=== PATIENT | female | born 1940 | race Caucasian/White ===

== ENCOUNTER → 2016-03-11 | Outpatient (CLI) | payer MEDICARE, BC | END | disposition home or self-care (01) | LOC: LABWHC1 14:48 | PROVIDERS: ATTEND Family Medicine | DX: E03.9 Hypothyroidism, unspecified (principal) | CPT/HCPCS: 36415; 84439; 84443 ==

== ENCOUNTER 2016-04-26 16:27 | Emergency (ER) | payer MEDICARE, BC ==
[2016-04-26] MEDS ORDERED: SODIUM CHLORIDE 0.9% 500 ML IV STA (17:34)
[2016-04-26 18:10] LABS: Basophils % (A) 1 %; CH 30.8; CHCM 33.8; Eosinophils % (A) 1 %; HCT 43.9 % (34.0-46.0); HDW 2.41; HGB 14.7 gm/dL (11.4-16.0); Luc # (Auto) 0.13; Luc % (Auto) 2; Lymphocytes % (A) 17 %; MCH 30.8 pg (25.0-35.0); MCHC 33.6 g/dL (31.0-37.0); MCV 91.6 fL (80.0-100.0); Mean Platelet Volume 7.4; Monocytes # (A) 0.4 k/uL (0-1.0); Monocytes % (A) 8 %; Neutrophils # (A) 4.1 k/uL (1.3-7.7); Neutrophils % (A) 72 %; RBC 4.79 m/uL (3.80-5.40); RDW 13.5 % (11.5-15.5); WBC 5.7 k/uL (3.8-10.6); WBC (Perox) 5.77
[2016-04-26 18:23] LABS: INR 2.2 (<1.1); Prothrombin Time 21.4 sec (9.0-12.0)
[2016-04-26 18:27] LABS: Calcium 9.8 mg/dL (8.4-10.2); Potassium 4.3 mmol/L (3.5-5.1)
--- NOTE | 2016-04-26 19:03 | CT ---
EXAMINATION TYPE: CT abdomen pelvis wo con DATE OF EXAM: 04/26/2016 6:46 PM COMPARISON: 02/20/2016 HISTORY: 76-year-old female Patient complains of vaginal bleeding x3 days. Patient is post full hyst erectomy [address]. [address] DLP: 635.3 mGycm. Automated exposure control for dose reduction was used. TECHNIQUE: Contiguous axial scanning of the abdomen and pelvis without IV contrast. Coronal and sagit dalia reconstructions performed. FINDINGS: Heart is upper limits of normal in size without pericardial effusion. Coronary vessel calcifications are present and are remarkable for coronary artery disease. Strandy atelectasis at the left base and mild dependent atelectasis on both sides. There is a small hiatal hernia. Noncontrast appearance of the liver, adrenal glands, kidneys, spleen, and pancreas within normal limi ts. There is a small fatty umbilical hernia. No mesenteric or retroperitoneal lymphadenopathy seen. Moderate atherosclerotic calcifications throughout the abdominal aorta without aneurysm. No dilated small bowel or free air. There is moderate stool within the ascending colon without lindsay lonic inflammatory change. There is sigmoid diverticulosis without clear evidence for acute diverticu litis. Limitations in assessment of the distal sigmoid due to streak and beam hardening artifact from the patient's right hip total arthroplasty. Bladder is partially urine distended. Interval hysterectomy. There is mild perihepatic ascites, trace perisplenic ascites, and mild pelvic free fluid. Additional fluid attenuating lobulated lesion at the level of the left inguinal region measures 5.2 x 3.3 cm, enlarged from 2.1 cm on 02/20/2016. Some encysted fluid within a inguinal hernia is suspecte d. Bones: Right hip total arthroplasty. Degenerative changes at the left hip. There is a degenerative de xtroconvex scoliosis. No osseous destructive process. IMPRESSION: 1. Status post hysterectomy with mild abdominopelvic ascites of uncertain etiology. Clinically los elate. 2. There is a 5.2 cm low-density lesion in the left inguinal region suspected to represent some liza tional fluid trapped within an inguinal hernia rather than abnormal lymphadenopathy. Correlate with p hysical exam findings and ultrasound. If this does represent fluid, aspiration with fluid analysis ca n be considered. 3. Sigmoid diverticulosis without clear evidence for acute diverticulitis.
--- NOTE | 2016-04-26 19:41 | ED ---
General Adult HPI - General Chief complaint: Vaginal Bleeding Stated complaint: Vaginal Bleeding-Post Op Time Seen by Provider: 04/26/16 17:12 Source: patient Mode of arrival: ambulatory Limitations: no limitations - History of Present Illness Initial comments: 76-year-old female presented for evaluation of vaginal bleeding that has been intermittently present since March 17 when she underwent a hysterectomy secondary to endometrial cancer. She states that over the last 3 days she has had worsening bleeding with intermittent clots that range from the size of a dime to quarter. 5 days after the surgery she was restarted on her Coumadin which she takes for atrial fibrillation but states that the bleeding did not become significantly worse until just a few days ago. She denies any abdominal pain all she does admit to a sizable swollen mass to her left lower groin. There is no associated lightheadedness/dizziness, nausea vomiting, shortness of breath, chest pain, syncope. She has an appointment with her surgeon Dr. Marie this coming . - Related Data Home Medications Medication Instructions Recorded Confirmed Aspirin 81 mg PO DAILY 01/18/16 04/26/16 Hydrochlorothiazide 12.5 mg PO DAILY 01/18/16 04/26/16 Metoprolol Tartrate [Lopressor] 50 mg PO QAM 01/18/16 04/26/16 Warfarin [Coumadin] 5 mg PO HS 01/18/16 04/26/16 Levothyroxine Sodium [Synthroid] 100 mcg PO DAILY 04/26/16 04/26/16 Metoprolol Tartrate [Lopressor] 25 mg PO HS 04/26/16 04/26/16 Allergies Allergy/AdvReac Type Severity Reaction Status Date / Time lisinopril Allergy Rash/Hives Verified 04/26/16 17:03 losartan Allergy Rash/Hives Verified 04/26/16 17:03 Review of Systems ROS Statement: Those systems with pertinent positive or pertinent negative responses have been documented in the HPI. ROS Other: All systems not noted in ROS Statement are negative. Constitutional: Denies: fever, chills Eyes: Denies: eye pain, eye discharge ENT: Denies: ear pain, throat pain Respiratory: Denies: cough, dyspnea Cardiovascular: Denies: chest pain, palpitations Endocrine: Denies: fatigue, polyuria Gastrointestinal: Denies: abdominal pain, nausea, vomiting Genitourinary: Reports: as per HPI. Denies: urgency, dysuria, frequency, hematuria Musculoskeletal: Denies: back pain, myalgia Skin: Denies: rash, lesions Neurological: Denies: headache, weakness Psychiatric: Denies: anxiety, depression Past Medical History Past Medical History: Atrial Fibrillation, Hypertension Additional Past Medical History / Comment(s): endometrial cancer. History of Any Multi-Drug Resistant Organisms: None Reported Additional Past Surgical History / Comment(s): hysterectomy. . hip surgery Past Psychological History: No Psychological Hx Reported Smoking Status: Current every day smoker Past Alcohol Use History: Occasional Past Drug Use History: None Reported General Exam Limitations: no limitations General appearance: alert, in no apparent distress Head exam: Present: atraumatic, normocephalic Eye exam: Present: normal appearance, EOMI ENT exam: Present: normal exam, normal oropharynx Neck exam: Present: normal inspection. Absent: tenderness Respiratory exam: Present: normal lung sounds bilaterally. Absent: respiratory distress, wheezes, rales Cardiovascular Exam: Present: regular rate, normal rhythm. Absent: bradycardia , tachycardia, irregular rhythm GI/Abdominal exam: Present: soft, hernia (Left lower groin). Absent: distended , tenderness Rectal exam: Present: deferred External exam: Present: normal external exam. Absent: erythema, lesions Speculum exam: Present: vaginal bleeding (No active bleeding from the cervical os. Small blood clots noted in the vaginal vault.) Extremities exam: Present: normal inspection, full ROM Back exam: Present: normal inspection, full ROM Neurological exam: Present: alert, oriented X3, normal gait Psychiatric exam: Present: normal affect, normal mood Skin exam: Present: warm, dry, intact Course Vital Signs 04/26/16 04/26/16 16:35 19:40 Temperature 97.8 F 97.6 F Pulse Rate 84 88 Respiratory 18 20 Rate Blood Pressure 140/83 138/82 O2 Sat by Pulse 100 98 Oximetry Medical Decision Making - Medical Decision Making 76-year-old female with a recent history of hysterectomy on 2016 due to endometrial cancer presented for evaluation of vaginal bleeding. She states that following the surgery she was having intermittent vaginal bleeding over the last 3 days she has had worsening bleeding, going through 2-3 pads a day. There've been blood clots as large as quarters during this time as well. She takes Coumadin for atrial fibrillation and was restarted on this medication 5 days post surgery. She denies any other symptoms including abdominal pain, lightheadedness/dizziness, shortness of breath, chest pain, syncope. Pelvic exam performed which revealed small clots in the vaginal vault without active bleeding from the cervical os. Physical exam was also significant for a left lower abdomen/groin mass. This mass was not reducible while the patient was standing but did self reduce when she sat or lay down. It was not tender to palpation and there were no bowel sounds auscultated. Labs revealed a therapeutic INR for age her fibrillation and a mild increase in her BUNs/creatinine but not significant for acute kidney injury. Otherwise there were no significant abnormalities on labs. CT abdomen and pelvis without contrast: Status post hysterectomy with mild abdominal pelvic ascites of uncertain etiology. There is a 5.2 cm low density lesion in the left inguinal region suspected represent some additional fluid trapped within an inguinal hernia rather than abdominal lymphadenopathy. Sigmoid diverticulosis without clear evidence for acute diverticulitis. Patient was informed of all these results and offered an abdominal ultrasound to evaluate the left lower inguinal hernia. She stated that at this time she would not like to have the ultrasound that she was not in any pain. She was given discharge instructions to return to this ED if she should develop any pain at that site or inability to pass bowel movements. She is further advised to return to the ED if her other symptoms should worsen or persist including but not limited to: Worsening vaginal bleeding, lightheadedness/dizziness, shortness of breath, chest pain, CP, foul-smelling discharge, fever. The patient acknowledged an understanding of this information and agreed with this plan of care. She further from that she would call her surgeon on Thursday to confirm her appointment for this . - Lab Data Result diagrams: 04/26/16 17:55 04/26/16 17:55 Lab Results 04/26/16 04/26/16 04/26/16 Range/Units 17:55 17:55 17:55 WBC 5.7 (3.8-10.6) k/uL RBC 4.79 (3.80-5.40) m/uL Hgb 14.7 (11.4-16.0) gm/dL Hct 43.9 (34.0-46.0) % MCV 91.6 (80.0-100.0) fL MCH 30.8 (25.0-35.0) pg MCHC 33.6 (31.0-37.0) g/dL RDW 13.5 (11.5-15.5) % Plt Count 224 (150-450) k/uL Neutrophils % 72 % Lymphocytes % 17 % Monocytes % 8 % Eosinophils % 1 % Basophils % 1 % Neutrophils # 4.1 (1.3-7.7) k/uL Lymphocytes # 1.0 (1.0-4.8) k/uL Monocytes # 0.4 (0-1.0) k/uL Eosinophils # 0.0 (0-0.7) k/uL Basophils # 0.0 (0-0.2) k/uL PT 21.4 H (9.0-12.0) sec INR 2.2 (<1.1) APTT 30.0 (22.0-30.0) sec Sodium 138 (137-145) mmol/L Potassium 4.3 (3.5-5.1) mmol/L Chloride 100 (98-107) mmol/L Carbon Dioxide 28 (22-30) mmol/L Anion Gap 10 mmol/L BUN 18 H (7-17) mg/dL Creatinine 1.14 H (0.52-1.04) mg/dL Est GFR (MDRD) Af Amer 56 (>60 ml/min/1.73 sqM) Est GFR (MDRD) Non-Af 46 (>60 ml/min/1.73 sqM) Glucose 122 H (74-99) mg/dL Calcium 9.8 (8.4-10.2) mg/dL - Radiology Data CT abdomen and pelvis without contrast: Status post hysterectomy with mild abdominal pelvic ascites of uncertain etiology. There is a 5.2 cm low density lesion in the left inguinal region suspected represent some additional fluid trapped within an inguinal hernia rather than abdominal lymphadenopathy. Sigmoid diverticulosis without clear evidence for acute diverticulitis. Disposition Clinical Impression: Abnormal vaginal bleeding Disposition: HOME SELF-CARE Condition: Stable Additional Instructions: Please call your COMPUTER SOFTWARE ENGINEER surgeon on Thursday to confirm your appointment on and also to schedule an ultrasound if she should wish to do so. You should also return to this emergency department for any worsening of your symptoms including but not limited to: Intractable nausea and vomiting, development of abdominal pain especially in the area of the hernia, fever or chills, worsening vaginal bleeding, lightheadedness/dizziness, shortness of breath, chest pain, loss of consciousness. Referrals: Lucio Jenkins DO [Primary Care Provider] - 1-2 days Time of Disposition: 19:39
[2016-04-26 20:02] VITALS: BP 138/82; PULSE 88; RESP 20; TEMP 97.6
== END 2016-04-26 19:40 | disposition home or self-care (01) ==
LOC: EC 16:27
DX: N99.820 Postprocedural hemorrhage of a genitourinary system organ or structure following a genitourinary system procedure (principal); K40.90 Unilateral inguinal hernia, without obstruction or gangrene, not specified as recurrent; K57.30 Diverticulosis of large intestine without perforation or abscess without bleeding; I10 Essential (primary) hypertension; I48.91 Unspecified atrial fibrillation; F17.200 Nicotine dependence, unspecified, uncomplicated; Z79.01 Long term (current) use of anticoagulants; Z79.52 Long term (current) use of systemic steroids; Z79.82 Long term (current) use of aspirin; Z79.899 Other long term (current) drug therapy; Z88.8 Allergy status to other drugs, medicaments and biological substances; Z85.42 Personal history of malignant neoplasm of other parts of uterus; Z90.710 Acquired absence of both cervix and uterus; Z98.890 Other specified postprocedural states; Y83.8 Other surgical procedures as the cause of abnormal reaction of the patient, or of later complication, without mention of misadventure at the time of the procedure
CPT/HCPCS: 36415; 74176; 80048; 85025; 85610; 85730; 99284

== ENCOUNTER → 2016-04-28 | Outpatient (CLI) | payer MEDICARE, BC | LOC: LABWHC1 15:48 | PROVIDERS: ATTEND Family Medicine | DX: E03.9 Hypothyroidism, unspecified (principal) | CPT/HCPCS: 36415; 84439; 84443; 84481 ==

== ENCOUNTER → 2016-06-04 | Outpatient (CLI) | payer MEDICARE, BC ==
--- NOTE | 2016-06-04 15:26 | CT ---
EXAMINATION TYPE: CT abdomen pelvis w con DATE OF EXAM: 06/04/2016 3:18 PM COMPARISON: NONE INDICATION: Patient complains of possible incisional hernia in LLQ post hysterectomy. DLP: 871.6 mGycm, Automated exposure control for dose reduction was used. CONTRAST: 80 mL of Visipaque 320. Study performed with Oral Contrast TECHNIQUE: Axial images were obtained from above the diaphragm to the pubic rami in the axial plane a t 5 mm thick sections. Reconstructed images are reviewed on the computer in the coronal plane. FINDINGS: Limited CT sections are obtained the lung bases. The lung bases are clear. CT ABDOMEN: Liver: Normal Spleen: Normal Pancreas: Normal Adrenal glands: The adrenal glands are normal. Gallbladder: Surgically absent. Kidneys: No masses are evident. No hydronephrosis is present. No cysts are present. Delayed images were obtained through the kidneys. Cortical renal cyst on the lateral mid right kidney is identified on the delayed images. Aorta: Vascular calcification is within the aorta. Inferior vena cava: Normal. CT PELVIS: Loops of bowel within the abdomen and pelvis are normal. Sigmoid diverticulosis without acute div erticulitis is present within the mid to distal sigmoid colon. Appendix: Normal as visualized. Urinary bladder: Normal. Genitourinary structures: Uterus and ovaries are not identified. Osseous structures: No suspicious lytic or sclerotic lesions. Within the left inguinal region is fluid type signal area measuring 6 Hounsfield units. This measures 5.0 x 4.1 cm in size. Previous abdominal ascites has resolved. IMPRESSIONS: 1. Stable fluid collection within the left inguinal region. 2. Sigmoid diverticulosis without acute diverticulitis.
== END | disposition home or self-care (01) ==
LOC: RADCTMAIN 13:09
PROVIDERS: ATTEND Surgery
DX: K57.30 Diverticulosis of large intestine without perforation or abscess without bleeding (principal)
CPT/HCPCS: 82565; 84520; 74177; 36415; Q9967

== ENCOUNTER → 2016-06-30 | Outpatient (CLI) | payer MEDICARE, BC ==
[2016-06-30 15:30] LABS: Creatine Kinase 242 U/L (30-135)
[2016-06-30 16:23] LABS: Vitamin B12 >1000 pg/mL
[2016-06-30 19:54] LABS: Hemoglobin A1C 6.3 % (4.2-6.1)
[2016-06-30 20:00] LABS: ANA w/Reflex to Titer NEGATIVE (NEGATIVE)
[2016-06-30 20:32] LABS: Treponemal Ab Non-Reactive (Non-Reactive)
[2016-07-01 03:45] LABS: Lyme Antibodies Total(IgG/IgM) 0.03 (<0.90)
== END | disposition home or self-care (01) ==
LOC: LABWHC1 14:50
PROVIDERS: ATTEND Psychiatry & Neurology Neurology
DX: G62.9 Polyneuropathy, unspecified (principal)
CPT/HCPCS: 36415; 82550; 82607; 82747; 83036; 84165; 84439; 84443; 85652; 86038; 86618; 86780

== ENCOUNTER → 2016-08-02 | Outpatient (CLI) | payer MEDICARE, BC ==
[2016-08-02 12:20] LABS: CH 30.4; HCT 46.3 % (34.0-46.0); HDW 2.31; HGB 15.3 gm/dL (11.4-16.0); MCH 30.5 pg (25.0-35.0); MCHC 33.1 g/dL (31.0-37.0); MCV 92.4 fL (80.0-100.0); Mean Platelet Volume 6.8; RBC 5.01 m/uL (3.80-5.40); RDW 13.7 % (11.5-15.5); WBC 6.1 k/uL (3.8-10.6)
[2016-08-02 12:28] LABS: Calcium 9.9 mg/dL (8.4-10.2); Potassium 4.3 mmol/L (3.5-5.1)
[2016-08-02 12:33] LABS: Hemoglobin A1C 6.5 % (4.2-6.1)
== END | disposition home or self-care (01) ==
LOC: LABWHC1 11:45
PROVIDERS: ATTEND Family Medicine
DX: E03.9 Hypothyroidism, unspecified (principal); E78.5 Hyperlipidemia, unspecified; I10 Essential (primary) hypertension; R73.09 Other abnormal glucose
CPT/HCPCS: 36415; 80048; 80061; 83036; 84439; 84443; 84450; 84460; 85027

== ENCOUNTER → 2016-09-15 | Outpatient (CLI) | payer MEDICARE, BC ==
[2016-09-15 14:48] LABS: Calcium 9.9 mg/dL (8.4-10.2); Potassium 4.7 mmol/L (3.5-5.1)
== END | disposition home or self-care (01) ==
LOC: LABWHC1 13:57
PROVIDERS: ATTEND Family Medicine
DX: N19 Unspecified kidney failure (principal); E03.9 Hypothyroidism, unspecified
CPT/HCPCS: 36415; 80048; 84439; 84443; 84481

== ENCOUNTER → 2016-10-24 | Outpatient (CLI) | payer MEDICARE, BC ==
[2016-10-24 14:15] LABS: Appearance,Urine Clear (Clear); Bilirubin,Urine Negative (Negative); Glucose,Urine (UA) Negative (Negative); Ketones,Urine Negative (Negative); Leukocyte Esterase,Urine Small (Negative); Mucus,Urine Rare /hpf; Nitrite,Urine Negative (Negative); PH, Urine 7.5 (5.0-8.0); Particle Count 2002; Protein,Urine Trace (Negative); RBC,Urine 27 /hpf (0-5); Squamous Epithelial Cell,Urine 1 /hpf (0-4); UA Billing (MACRO vs. MICRO) MICRO; Urobilinogen,Urine <2.0 mg/dL (<2.0); WBC,Urine 4 /hpf (0-5)
[2016-10-24 14:18] LABS: Basophils % (A) 1 %; CH 31.6; CHCM 33.4; Eosinophils % (A) 1 %; HDW 2.12; HGB 16.1 gm/dL (11.4-16.0); Luc # (Auto) 0.11; Luc % (Auto) 2; Lymphocytes # (A) 0.9 k/uL (1.0-4.8); Lymphocytes % (A) 20 %; MCH 31.3 pg (25.0-35.0); MCHC 32.9 g/dL (31.0-37.0); MCV 94.9 fL (80.0-100.0); Mean Platelet Volume 7.4; Monocytes # (A) 0.4 k/uL (0-1.0); Monocytes % (A) 9 %; Neutrophils # (A) 3.1 k/uL (1.3-7.7); Neutrophils % (A) 67 %; RBC 5.16 m/uL (3.80-5.40); RDW 14.5 % (11.5-15.5); WBC 4.6 k/uL (3.8-10.6); WBC (Perox) 4.54
[2016-10-24 14:45] LABS: Calcium 9.5 mg/dL (8.4-10.2); Magnesium 1.9 mg/dL (1.6-2.3); Phosphorous 3.9 mg/dL (2.5-4.5); Potassium 4.4 mmol/L (3.5-5.1); Uric Acid 6.3 mg/dL (3.7-7.4)
[2016-10-24 14:54] LABS: % Iron Saturation 18.8 % (20-50)
== END | disposition home or self-care (01) ==
LOC: LABWHC1 13:39
PROVIDERS: ATTEND Nurse Practitioner Family
DX: D64.9 Anemia, unspecified (principal); N18.3 Chronic kidney disease, stage 3 (moderate); E21.3 Hyperparathyroidism, unspecified; N39.0 Urinary tract infection, site not specified; E55.9 Vitamin D deficiency, unspecified; M10.9 Gout, unspecified
CPT/HCPCS: 36415; 80048; 81001; 82040; 82306; 82728; 83540; 83550; 83735; 83970; 84100; 84550; 85025

== ENCOUNTER → 2016-11-24 | Outpatient (CLI) | payer MEDICARE, BC ==
[2016-11-24 17:09] LABS: Basophils % (A) 1 %; CHCM 32.4; Eosinophils # (A) 0.1 k/uL (0-0.7); Eosinophils % (A) 1 %; HCT 49.1 % (34.0-46.0); HGB 15.6 gm/dL (11.4-16.0); Luc % (Auto) 2; Lymphocytes # (A) 1.1 k/uL (1.0-4.8); Lymphocytes % (A) 19 %; MCH 30.5 pg (25.0-35.0); MCHC 31.8 g/dL (31.0-37.0); MCV 96.2 fL (80.0-100.0); Mean Platelet Volume 6.7; Monocytes # (A) 0.4 k/uL (0-1.0); Monocytes % (A) 7 %; Neutrophils % (A) 70 %; RBC 5.11 m/uL (3.80-5.40); RDW 13.9 % (11.5-15.5); WBC 5.7 k/uL (3.8-10.6); WBC (Perox) 5.61
[2016-11-24 17:10] LABS: Appearance,Urine Clear (Clear); Bacteria,Urine Occasional /hpf; Bilirubin,Urine Negative (Negative); Glucose,Urine (UA) Negative (Negative); Ketones,Urine Negative (Negative); Leukocyte Esterase,Urine Moderate (Negative); Luc # (Auto) 0.13; Nitrite,Urine Negative (Negative); PH, Urine 6.5 (5.0-8.0); Particle Count 639; Protein,Urine Negative (Negative); RBC,Urine 8 /hpf (0-5); Specific Gravity,Urine 1.006 (1.001-1.035); Squamous Epithelial Cell,Urine 1 /hpf (0-4); UA Billing (MACRO vs. MICRO) MICRO; Urobilinogen,Urine <2.0 mg/dL (<2.0); WBC,Urine 13 /hpf (0-5)
[2016-11-24 17:14] LABS: Calcium 9.9 mg/dL (8.4-10.2); Magnesium 1.9 mg/dL (1.6-2.3); Phosphorous 4.1 mg/dL (2.5-4.5); Uric Acid 6.3 mg/dL (3.7-7.4)
[2016-11-24 17:15] LABS: Potassium 4.4 mmol/L (3.5-5.1)
[2016-11-25 02:02] LABS: ANA w/Reflex to Titer NEGATIVE (NEGATIVE)
[2016-11-25 03:42] LABS: Iron 85 ug/dL (50-170); Iron Saturation 22.02 (12.00-45.00); Total Iron Binding Capacity 386 ug/dL (228-460)
[2016-11-25 11:15] LABS: Free Kappa Lt Chain Qnt, Serum 1.28 mg/dL (0.33-1.94)
[2016-11-25 14:15] LABS: C-ANCA <1:20 Titer (<1:20); P-ANCA <1:20 Titer (<1:20)
[2016-11-25 14:25] LABS: Mis test requested (Non-blood) Urn Prot Electrophor
[2016-11-26 04:13] LABS: Complement Total (CH50) 104 U/mL (42 - 95)
== END | disposition home or self-care (01) ==
LOC: LABWHC1 16:17
PROVIDERS: ATTEND Nurse Practitioner Family
DX: N18.3 Chronic kidney disease, stage 3 (moderate) (principal); E21.3 Hyperparathyroidism, unspecified; N39.0 Urinary tract infection, site not specified; E55.9 Vitamin D deficiency, unspecified; D64.9 Anemia, unspecified; R80.9 Proteinuria, unspecified; M10.9 Gout, unspecified
CPT/HCPCS: 36415; 80048; 81001; 81050; 82040; 82306; 82570; 82728; 83516; 83540; 83550; 83735; 83883; 83970; 84100; 84156; 84166; 84550; 85025; 86038; 86160; 86162; 86225; 86255; 86334

== ENCOUNTER → 2017-06-19 | Outpatient (CLI) | payer MEDICARE, BC ==
--- NOTE | 2017-06-19 15:34 | CT ---
EXAMINATION TYPE: CT brain wo/w con DATE OF EXAM: 06/19/2017 COMPARISON: NONE HISTORY: Visual disturbance CT DLP: 2108.4mGycm CONTRAST: CT scan of the head is performed without and with IV Contrast, patient injected with 80 mL of Isovue 300. Unenhanced followed by contrast enhanced CT of the brain is submitted for evaluation. The ventricles are midline. Age-related atrophic and chronic small vessel ischemic change noted. There is no eviden ce for intracranial hemorrhage or extra-axial collection. No mass effects are identified. Visualize d bony calvarium is intact. Contrast is administered and no enhancing lesions are detected. No path ologic enhancement is identified. If symptoms persist consider MRI. IMPRESSION: No enhancing lesion or acute intracranial process seen.
== END ==
LOC: RADCTMAIN 13:28
PROVIDERS: ATTEND Ophthalmology
DX: D49.6 Neoplasm of unspecified behavior of brain (principal)
CPT/HCPCS: 82565; 84520; 70470; 36415; Q9967

== ENCOUNTER → 2017-11-13 | Outpatient (CLI) | payer MEDICARE, BC ==
[2017-11-13 13:33] LABS: HCT 47.7 % (34.0-46.0); HGB 15.6 gm/dL (11.4-16.0); MCH 30.5 pg (25.0-35.0); MCHC 32.8 g/dL (31.0-37.0); Mean Platelet Volume 6.9; Platelet Count 239 k/uL (150-450); RBC 5.13 m/uL (3.80-5.40); RDW 13.7 % (11.5-15.5); WBC 4.8 k/uL (3.8-10.6)
[2017-11-13 14:04] LABS: Albumin 3.8 g/dL (3.5-5.0); Calcium 9.6 mg/dL (8.4-10.2); Potassium 4.4 mmol/L (3.5-5.1); Total Bilirubin 0.7 mg/dL (0.2-1.3); Total Protein 6.7 g/dL (6.3-8.2)
== END | disposition home or self-care (01) ==
LOC: LABPAT 13:09
PROVIDERS: ATTEND Internal Medicine Clinical Cardiac Electrophysiology
DX: Z01.812 Encounter for preprocedural laboratory examination (principal); I48.1 Persistent atrial fibrillation; I45.10 Unspecified right bundle-branch block
CPT/HCPCS: 36415; 80053; 84443; 85027

== ENCOUNTER → 2017-12-09 | Outpatient (CLI) | payer MEDICARE, BC ==
[2017-12-09 13:37] LABS: HCT 47.5 % (34.0-46.0); HGB 15.1 gm/dL (11.4-16.0); MCH 29.8 pg (25.0-35.0); MCHC 31.8 g/dL (31.0-37.0); MCV 93.6 fL (80.0-100.0); Mean Platelet Volume 7.3; Platelet Count 227 k/uL (150-450); RBC 5.08 m/uL (3.80-5.40); RDW 13.9 % (11.5-15.5); WBC 4.5 k/uL (3.8-10.6)
[2017-12-09 14:02] LABS: Potassium 4.3 mmol/L (3.5-5.1)
== END | disposition home or self-care (01) ==
LOC: LABPAT 11:56
PROVIDERS: ATTEND Internal Medicine Clinical Cardiac Electrophysiology
DX: Z01.812 Encounter for preprocedural laboratory examination (principal); I48.2 Chronic atrial fibrillation; I45.10 Unspecified right bundle-branch block
CPT/HCPCS: 36415; 80051; 82565; 82947; 84520; 85027

== ENCOUNTER 2017-12-26 14:35 | Emergency (ER) | payer MEDICARE, BC ==
[2017-12-26 14:42] VITALS: RESP 18
--- NOTE | 2017-12-26 15:18 | ED ---
General Adult HPI - General Chief complaint: Fall Stated complaint: Fell Source: patient, RN notes reviewed, old records reviewed Mode of arrival: ambulatory Limitations: no limitations - History of Present Illness Initial comments: 77-year-old female patient anticoagulated on xaralto presents to ED after sustaining fall on Saturday 12/23. Patient states that she was exercising on foot glider when she abruptly fell backwards onto her backside. Patient denies head/neck trauma, loss of consciousness. Patient has been ambulatory since fall. Patient experiencing mild pain in left hemipelvis and coccyx region. Patient presented to the ED due to large ecchymoses on the right hemipelvis and associated blood blister which ruptured last night. Patient denies other complaints. Systemic: Pt denies fatigue, myalgia, fever/chills, rash. Pt denies weakness, night sweats, weight loss. Neuro: Pt denies headache, visual disturbances, syncope or pre-syncope. HEENT: Pt denies ocular discharge or irritation, otalgia, rhinorrhea, pharyngitis or notable lymphadenopathy. Cardiopulmonary: Pt denies chest pain, SOB, heart palpitations, dyspnea on exertion. Abdominal/GI: Pt denies abdominal pain, n/v/d. : Pt denies dysuria, burning w/ urination, frequency/urgency. Denies new onset urinary or bowel incontinence. MSK: Pt denies myalgia, loss of strength or function in extremities. - Related Data Home Medications Medication Instructions Recorded Confirmed Hydrochlorothiazide 12.5 mg PO DAILY 01/18/16 12/22/17 Metoprolol Tartrate [Lopressor] 50 mg PO QAM 01/18/16 12/22/17 Levothyroxine Sodium [Synthroid] 175 mcg PO DAILY 04/26/16 12/22/17 Metoprolol Tartrate [Lopressor] 25 mg PO HS 04/26/16 12/22/17 Rivaroxaban [Xarelto] 20 mg PO DAILY 12/22/17 12/22/17 Allergies Allergy/AdvReac Type Severity Reaction Status Date / Time lisinopril Allergy Rash/Hives Verified 12/22/17 12:01 losartan Allergy Rash/Hives Verified 12/22/17 12:01 Review of Systems ROS Statement: Those systems with pertinent positive or pertinent negative responses have been documented in the HPI. ROS Other: All systems not noted in ROS Statement are negative. Past Medical History Past Medical History: Atrial Fibrillation, Cancer, Diabetes Mellitus, Hypertension Additional Past Medical History / Comment(s): endometrial cancer 2017; states has diabetes but doesn't test BS or take meds History of Any Multi-Drug Resistant Organisms: None Reported Past Surgical History: Section, Hysterectomy, Joint Replacement Additional Past Surgical History / Comment(s): R Hip replaced Past Anesthesia/Blood Transfusion Reactions: No Reported Reaction Past Psychological History: No Psychological Hx Reported Smoking Status: Former smoker Past Alcohol Use History: None Reported Past Drug Use History: None Reported - Past Family History Mother Family Medical History: No Reported History General Exam - General Exam Comments Initial Comments: Constitutional: NAD, AOX3, Pt has pleasant affect. HEENT: NC/AT, trachea midline, neck supple, no lymphadenopathy. Posterior pharynx non erythematous, without exudates. External ears appear normal, without discharge. Mucous membranes moist. Eyes PERRLA, EOM intact. There is no scleral icterus. No pallor noted. Cardiopulmonary: RRR, no murmurs, rubs or gallops, no JVD noted. Lungs CTAB in anterior and posterior sanz. No peripheral edema. Abdominal exam: Abdomen soft and non-distended. Abdomen non-tender to palpation in all 4 quadrants. Bowel sounds active in LLQ. No hepatosplenomegaly. Neuro: CN II-XII grossly intact. MSK: Patient is ambulating without difficulty. Upper extremities nontender without deformity or notable ecchymoses. Cervical spine nontender. Large ecchymoses noted on the posterior right hemipelvis. Scattered blisters noticed on the posterior right hemipelvis. Posterior tibialis +2 bilaterally. Limitations: no limitations Course Vital Signs 12/26/17 14:38 Temperature 97.9 F Pulse Rate 85 Respiratory 18 Rate Blood Pressure 130/81 O2 Sat by Pulse 100 Oximetry Medical Decision Making - Medical Decision Making 77-year-old patient presented in ED due to fall sustained on 12/23 underwent evaluation for musculoskeletal injury. Patient has been ambulatory since fall. Investigations included plain films of the sacrum/coccyx, lumbar spine, hip/ pelvis. These films did not display any acute fracture or pathology. Patient to follow up with PCP in 1 to 2 days. Patient is scheduled for cardioversion procedure on 12/29. Patient to continue with anticoagulation as previously advised by support technician. Vital signs stable. No concern additional injury due to the length of time since fall, benign physical exam, and absence of signs/ symptoms. Patient to return if paresthesias develop, new pain develops or any other new symptoms. Disposition Clinical Impression: Fall Disposition: HOME SELF-CARE Instructions: Fall Prevention for Older Adults (ED) Is patient prescribed a controlled substance at d/c from ED?: No Referrals: Lucio Jenkins DO [Primary Care Provider] - 1-2 days
--- NOTE | 2017-12-26 16:02 | XR ---
EXAMINATION TYPE: XR sacrum coccyx DATE OF EXAM: 12/26/2017 COMPARISON: NONE HISTORY: Fall. Pain. TECHNIQUE: 3 views FINDINGS: Segments have normal alignment. I see no fracture. Sacroiliac joints appear normal. There a re spondylotic changes in the lower lumbar spine. IMPRESSION: Lumbar spondylotic changes. No fracture.
--- NOTE | 2017-12-26 16:03 | XR ---
EXAMINATION TYPE: XR lumbar spine 2 or 3V DATE OF EXAM: 12/26/2017 COMPARISON: NONE HISTORY: Back pain TECHNIQUE: 3 views FINDINGS: There is lumbar dextroscoliosis. There is degenerative disc space narrowing throughout the lumbar spine with spur formation. There is no acute fracture. There is slight loss of height of the l umbar vertebra less than 10%. Sacroiliac joints are intact. IMPRESSION: Moderate multilevel spondylosis. No acute fracture seen.
--- NOTE | 2017-12-26 16:05 | XR ---
EXAMINATION TYPE: XR Hip Bilateral and AP pelvis DATE OF EXAM: 12/26/2017 COMPARISON: NONE HISTORY: Fall. Pain. TECHNIQUE: 5 views FINDINGS: The pelvic ring is intact. There is right hip prosthesis. Components appear in anatomic pos ition. There is some spurring and calcification around the greater trochanter of both femurs. There i s mild spurring on the left femoral head. IMPRESSION: No acute abnormality of the pelvis and both hips
[2017-12-26 16:21] VITALS: BP 110/80; PULSE 70; TEMP 98.7
== END 2017-12-26 16:24 | disposition home or self-care (01) ==
LOC: EC 14:35
DX: S30.0XXA Contusion of lower back and pelvis, initial encounter (principal); I48.91 Unspecified atrial fibrillation; I10 Essential (primary) hypertension; Z85.42 Personal history of malignant neoplasm of other parts of uterus; Z96.641 Presence of right artificial hip joint; Z87.891 Personal history of nicotine dependence; Z79.01 Long term (current) use of anticoagulants; Z79.899 Other long term (current) drug therapy; Z88.8 Allergy status to other drugs, medicaments and biological substances; W01.0XXA Fall on same level from slipping, tripping and stumbling without subsequent striking against object, initial encounter; Y93.89 Activity, other specified
CPT/HCPCS: 72100; 72220; 73521; 99284

== ENCOUNTER 2017-12-29 06:18 | Day surgery (SDC) | payer MEDICARE, BC ==
[2017-12-22 12:07] VITALS: BMI 29.2
[~2017-12-29 06:18] MED LIST: SODIUM CHLORIDE 0.9% 1,000 ML IV SCH
[2017-12-29 07:01] VITALS: RESP 16; TEMP 98.2
[2017-12-29] MEDS ORDERED: fentaNYL (PF) 50 MCG/ML 2 ML AMP ONE (07:19)
[2017-12-29] MEDS ORDERED: PROPOFOL 10 MG/ML 20 ML VIAL IV ONE (07:19)
[2017-12-29] MEDS ORDERED: IV FLUID CONTINUATION 1,000 ML IV ONE (07:24)
[2017-12-29 07:37] LABS: Glucose,Whole Blood 132 mg/dL (75-99)
--- NOTE | 2017-12-29 08:04 | P.PCN ---
Preoperative Diagnosis: Diagnosis Symptomatic persistent atrial fibrillation with RVR during the daytime, on xarelto 20 mg by mouth daily Procedure Electrical cardioversion with 360 J shock was performed successfully, to sinus rhythm PACs noted post cardioversion Result Successful cardioversion for atrial fibrillation. If patient does not maintains sinus rhythm then consideration should be given to a pace & ablate strategy Anesthesia: MAC
[2017-12-29 09:26] VITALS: BP 138/72; PULSE 56
== END 2017-12-29 09:26 | disposition home or self-care (01) ==
LOC: CATHEP 06:18
PROVIDERS: ATTEND Internal Medicine Clinical Cardiac Electrophysiology
DX: I48.1 Persistent atrial fibrillation (principal); I10 Essential (primary) hypertension; I45.10 Unspecified right bundle-branch block; I47.1 Supraventricular tachycardia; E78.5 Hyperlipidemia, unspecified; G47.33 Obstructive sleep apnea (adult) (pediatric); I49.3 Ventricular premature depolarization; E11.42 Type 2 diabetes mellitus with diabetic polyneuropathy; E07.9 Disorder of thyroid, unspecified; F17.200 Nicotine dependence, unspecified, uncomplicated; Z79.01 Long term (current) use of anticoagulants; Z79.890 Hormone replacement therapy; Z79.899 Other long term (current) drug therapy; Z82.49 Family history of ischemic heart disease and other diseases of the circulatory system; Z88.8 Allergy status to other drugs, medicaments and biological substances
CPT/HCPCS: 92960; J3010; J2704

== ENCOUNTER 2018-02-17 12:58 | Emergency (ER) | payer MEDICARE, BC ==
[2018-02-17 13:11] VITALS: BP 164/88; PULSE 54; RESP 18; TEMP 97.8
--- NOTE | 2018-02-17 13:47 | ED ---
Female Urogenital HPI - General Chief complaint: Urogenital Stated complaint: UTI Time Seen by Provider: 02/17/18 13:25 Source: patient, RN notes reviewed, old records reviewed Mode of arrival: ambulatory Limitations: no limitations - History of Present Illness Initial comments: This is a 77-year-old female the ER for evaluation. Patient presents today for evaluation regards to abdominal pain burning with urination believe that she does have urinary tract infection. No fevers no nausea vomiting no diarrhea no other complaints MD Complaint: dysuria, pelvic pain -: days(s) Location: suprapubic Radiation: suprapubic Severity scale (1-10): 6 Consistency: constant Improves with: none Worsens with: none, urination Patient : No Associated Symptoms: denies other symptoms - Related Data Home Medications Medication Instructions Recorded Confirmed Hydrochlorothiazide 12.5 mg PO DAILY 01/18/16 02/17/18 Metoprolol Tartrate [Lopressor] 25 mg PO BID 04/26/16 02/17/18 Amiodarone [Cordarone] 100 mg PO DAILY 02/17/18 02/17/18 Levothyroxine Sodium [Synthroid] 150 mcg PO DAILY 02/17/18 02/17/18 Warfarin [Coumadin] 5 mg PO W/SUPPER 02/17/18 02/17/18 Previous Rx's Medication Instructions Recorded Nitrofurantoin Monohyd/M-Cryst 100 mg PO Q12HR #14 cap 02/17/18 [Macrobid] Allergies Allergy/AdvReac Type Severity Reaction Status Date / Time lisinopril Allergy Rash/Hives Verified 02/17/18 13:46 losartan Allergy Rash/Hives Verified 02/17/18 13:46 Review of Systems ROS Statement: Those systems with pertinent positive or pertinent negative responses have been documented in the HPI. ROS Other: All systems not noted in ROS Statement are negative. Past Medical History Past Medical History: Atrial Fibrillation, Cancer, Diabetes Mellitus, Hypertension Additional Past Medical History / Comment(s): endometrial cancer 2017; states has diabetes but doesn't test BS or take meds History of Any Multi-Drug Resistant Organisms: None Reported Past Surgical History: Section, Hysterectomy, Joint Replacement Additional Past Surgical History / Comment(s): R Hip replaced Past Anesthesia/Blood Transfusion Reactions: No Reported Reaction Past Psychological History: No Psychological Hx Reported Smoking Status: Former smoker Past Alcohol Use History: None Reported Past Drug Use History: None Reported - Past Family History Mother Family Medical History: No Reported History General Exam Limitations: no limitations General appearance: alert, in no apparent distress Head exam: Present: atraumatic, normocephalic, normal inspection Eye exam: Present: normal appearance, PERRL, EOMI. Absent: scleral icterus, conjunctival injection, periorbital swelling ENT exam: Present: normal exam, mucous membranes moist Neck exam: Present: normal inspection. Absent: tenderness, meningismus, lymphadenopathy Respiratory exam: Present: normal lung sounds bilaterally. Absent: respiratory distress, wheezes, rales, rhonchi, stridor Cardiovascular Exam: Present: regular rate, normal rhythm, normal heart sounds. Absent: systolic murmur, diastolic murmur, rubs, gallop, clicks GI/Abdominal exam: Present: soft, normal bowel sounds. Absent: distended, tenderness, guarding, rebound, rigid Extremities exam: Present: normal inspection, full ROM, normal capillary refill. Absent: tenderness, pedal edema, joint swelling, calf tenderness Back exam: Present: normal inspection Neurological exam: Present: alert, oriented X3, CN II-XII intact Psychiatric exam: Present: normal affect, normal mood Skin exam: Present: warm, dry, intact, normal color. Absent: rash Course Vital Signs 02/17/18 02/17/18 13:07 15:40 Temperature 97.8 F Pulse Rate 54 L Respiratory 18 18 Rate Blood Pressure 164/88 O2 Sat by Pulse 99 Oximetry Medical Decision Making - Medical Decision Making 68 female the ER with burning with urination, patient with positive UTI can be discharged home - Lab Data Lab Results 02/17/18 Range/Units 13:45 Urine Color Light Yellow Urine Appearance Clear (Clear) Urine pH 6.5 (5.0-8.0) Ur Specific [place] 1.007 (1.001-1.035) Urine Protein Trace H (Negative) Urine Glucose (UA) Negative (Negative) Urine Ketones Negative (Negative) Urine Blood Large H (Negative) Urine Nitrite Negative (Negative) Urine Bilirubin Negative (Negative) Urine Urobilinogen <2.0 (<2.0) mg/dL Ur Leukocyte Esterase Large H (Negative) Urine RBC 38 H (0-5) /hpf Urine WBC 92 H (0-5) /hpf Urine Bacteria Rare H (None) /hpf Urine Yeast (Budding) Rare H (None) /hpf Disposition Clinical Impression: Urinary tract infection Disposition: HOME SELF-CARE Condition: Fair Instructions: Urinary Tract Infection in Women (DC) Prescriptions: Nitrofurantoin Monohyd/M-Cryst [Macrobid] 100 mg PO Q12HR #14 cap Is patient prescribed a controlled substance at d/c from ED?: No Referrals: Lucio Jenkins DO [Primary Care Provider] - 1-2 days
[2018-02-17 15:03] LABS: Appearance,Urine Clear (Clear); Bacteria,Urine Rare /hpf; Bilirubin,Urine Negative (Negative); Blood,Urine Large (Negative); Budding Yeast,Urine Rare /hpf; Color,Urine Light Yellow; Glucose,Urine (UA) Negative (Negative); Ketones,Urine Negative (Negative); Leukocyte Esterase,Urine Large (Negative); Nitrite,Urine Negative (Negative); PH, Urine 6.5 (5.0-8.0); Protein,Urine Trace (Negative); RBC,Urine 38 /hpf (0-5); Specific Gravity,Urine 1.007 (1.001-1.035); Urobilinogen,Urine <2.0 mg/dL (<2.0); WBC,Urine 92 /hpf (0-5)
[2018-02-17] MEDS ORDERED: NITROFURANTOIN MONOHYD/M-CRYST 100 MG CAP PO STA (15:06)
== END 2018-02-17 15:42 | disposition home or self-care (01) ==
LOC: EC 12:58
DX: N39.0 Urinary tract infection, site not specified (principal); I48.91 Unspecified atrial fibrillation; I10 Essential (primary) hypertension; Z85.42 Personal history of malignant neoplasm of other parts of uterus; Z87.891 Personal history of nicotine dependence; Z79.01 Long term (current) use of anticoagulants; Z79.899 Other long term (current) drug therapy; Z88.8 Allergy status to other drugs, medicaments and biological substances; Z96.641 Presence of right artificial hip joint
CPT/HCPCS: 81001; 87077; 87086; 87186; 99284

== ENCOUNTER → 2018-12-22 | Outpatient (CLI) | payer MEDICARE, BC ==
--- NOTE | 2018-12-23 09:04 | CT ---
EXAMINATION TYPE: CT abdomen pelvis wo con DATE OF EXAM: 12/22/2018 COMPARISON: 06/04/2016 INDICATION: Pelvic swelling. DLP: 894 mGycm, Automated exposure control for dose reduction was used. CONTRAST: 0 mL of Isovue 300. Study performed with Oral Contrast TECHNIQUE: Axial images were obtained from above the diaphragm to the pubic rami in the axial plane a t 5 mm thick sections. Reconstructed images are reviewed on the computer in the coronal plane. FINDINGS: Limited CT sections are obtained the lung bases. The lung bases are clear. Some coronary artery olivia cification is present. CT ABDOMEN: Liver: Couple of hepatic cysts may be in the superior right lobe liver. These however were not identi fied previously. Consider additional workup. Other etiologies including metastatic lesion should be c onsidered. Spleen: Normal Pancreas: Normal Adrenal glands: The adrenal glands are normal. Gallbladder: Normal Kidneys: No masses are evident. No hydronephrosis is present. No cysts are present. No renal stone s are evident. Aorta: Vascular calcification is within the aorta. Inferior vena cava: Normal. CT PELVIS: Loops of bowel within the abdomen and pelvis are normal. Scattered diverticuli within the sigmoid colon. No suspicious inflammatory changes to suggest acute diverticulitis is evident. Appendix: Normal as visualized. Urinary bladder: Normal. Genitourinary structures: Uterus and ovaries are not identified. Osseous structures: No suspicious lytic or sclerotic lesions. There is a right hip prosthesis causing beam hardening artifact. Within the left inguinal region there is a fluid collection measuring 3.8 x 3.4 cm. No discrete wall is evident. This measures -4 Hounsfield units. Fluid within an femoral hernia is felt to be most like ly within the differential. IMPRESSIONS: 1. Suspected fluid-filled femoral hernia left inguinal region
== END | disposition home or self-care (01) ==
LOC: RADCTMAIN 15:15
PROVIDERS: ATTEND Family Medicine
DX: R19.00 Intra-abdominal and pelvic swelling, mass and lump, unspecified site (principal)
CPT/HCPCS: 82565; 84520; 74176; 36415; Q9967

== ENCOUNTER 2019-03-24 09:39 | Day surgery (SDC) | payer MEDICARE, BC ==
[2019-03-22 11:29] VITALS: BMI 27.0
--- NOTE | 2019-03-23 18:04 | P.GSHP ---
History of Present Illness H&P Date: 03/24/19 CHIEF COMPLAINT: Ventral hernia. HISTORY OF PRESENT ILLNESS: The patient is a 79-year-old female who presents with a history of swelling along the umbilicus and left lower quadrant Findings were consistent with possible umbilical hernia and left inguinal hernia. Now she presents for further evaluation and management. PAST MEDICAL HISTORY: Please see list. PAST SURGICAL HISTORY: Please see list. MEDICATIONS: Please see list. ALLERGIES: Please see list. SOCIAL HISTORY: No illicit drug use FAMILY HISTORY: No reports of Crohn disease or ulcerative colitis. REVIEW OF ORGAN SYSTEMS: CONSTITUTIONAL: No reports of fevers or chills. GI: Denies any blood in stools or constipation. PHYSICAL EXAM: VITAL SIGNS: Stable GENERAL: Well-developed pleasant female in no acute distress. HEENT: No scleral icterus. Extraocular movements grossly intact. Moist buccal mucosa. NECK: Supple without lymphadenopathy. CHEST: Unlabored respirations. Equal bilateral excursions. CARDIOVASCULAR: Regular rate and rhythm. Distal 2+ pulses. ABDOMEN: Soft, nondistended. Umbilical hernia and left inguinal swelling. Protuberant. MUSCULOSKELETAL: No clubbing, cyanosis, or edema. ASSESSMENT: 1. Umbilical hernia 2. Left inguinal hernia PLAN: 1. Recommend proceeding with robotic ventral hernia repair with mesh including left inguinal hernia repair 2. Benefits and risks of surgical intervention was discussed including possibility of open technique. 3. DVT prophylaxis. 4. Antibiotic prophylaxis. Past Medical History Past Medical History: Atrial Fibrillation, Cancer, Hypertension, Neurologic Disorder, Thyroid Disorder Additional Past Medical History / Comment(s): endometrial cancer 2017; prediabetes, neuropathy feet History of Any Multi-Drug Resistant Organisms: None Reported Past Surgical History: Section, Hysterectomy, Joint Replacement Additional Past Surgical History / Comment(s): R Hip replaced. cardioversion Past Anesthesia/Blood Transfusion Reactions: No Reported Reaction Smoking Status: Former smoker - Past Family History Mother Family Medical History: No Reported History Medications and Allergies Home Medications Medication Instructions Recorded Confirmed Type Hydrochlorothiazide 12.5 mg PO DAILY 01/18/16 03/22/19 History Metoprolol Tartrate [Lopressor] 25 mg PO BID 04/26/16 03/22/19 History Levothyroxine Sodium [Synthroid] 150 mcg PO WE 02/17/18 03/22/19 History ALPRAZolam [Xanax] 0.25 mg PO HS PRN 03/22/19 03/22/19 History Enoxaparin [Lovenox] 80 mg SQ DAILY 03/22/19 03/22/19 History Gabapentin [Neurontin] 200 mg PO TID 03/22/19 03/22/19 History Levothyroxine Sodium 137 mcg PO SUMOTUTHFRSA 03/22/19 03/22/19 History Warfarin [Coumadin] 5 mg PO DAILY 03/22/19 03/22/19 History Allergies Allergy/AdvReac Type Severity Reaction Status Date / Time lisinopril Allergy Rash/Hives Verified 03/22/19 11:06 losartan Allergy Rash/Hives Verified 03/22/19 11:06
[~2019-03-24 09:39] MED LIST changes: +DEXAMETHASONE SOD PHOSPHATE 10 MG/ML 1 ML VIAL IV ONE; +GABAPENTIN 300 MG CAP PO STA; +HEPARIN SODIUM,PORCINE 5,000 UNIT/ML 1 ML VIAL SQ ONE; +HYDROmorphone 0.5 MG/0.5 ML SYRINGE IVP PRN; +LACTATED RINGERS 1,000 ML IV SCH; +LIDOCAINE 1% 20 ML VIAL (10MG/ML) FOR IV START INTRADERMA PRN; +MIDAZOLAM 2 MG/2 ML VIAL IV PRN; +SCOPOLAMINE 1.5MG/72HR PATCH TRANSDERM ONE; -SODIUM CHLORIDE 0.9% 1,000 ML IV SCH
[2019-03-24 10:17] LABS: Glucose,Whole Blood 116 mg/dL (75-99)
[2019-03-24] MEDS: ACETAMINOPHEN TAB 500 MG TAB PO STA ×2 (10:27→16:50)
[2019-03-24] MEDS ORDERED: LACTATED RINGERS 1,000 ML IV ONE ×2 (10:27→15:15)
[2019-03-24] MEDS: ONDANSETRON 4 MG/2 ML VIAL IVP ONE ×2 (10:27→16:12)
[2019-03-24 10:41] LABS: Basophils # (A) 0.1 k/uL (0-0.2); Basophils % (A) 3 %; Eosinophils # (A) 0.1 k/uL (0-0.7); Eosinophils % (A) 2 %; HCT 45.1 % (34.0-46.0); INR 1.1 (<1.2); Lymphocytes # (A) 0.9 k/uL (1.0-4.8); Lymphocytes % (A) 22 %; MCH 31.3 pg (25.0-35.0); MCHC 33.3 g/dL (31.0-37.0); MCV 93.8 fL (80.0-100.0); Mean Platelet Volume 7.6; Monocytes # (A) 0.4 k/uL (0-1.0); Monocytes % (A) 11 %; Neutrophils # (A) 2.3 k/uL (1.3-7.7); Neutrophils % (A) 59 %; Platelet Count 233 k/uL (150-450); Prothrombin Time 11.1 sec (9.0-12.0); WBC 3.9 k/uL (3.8-10.6)
[2019-03-24 10:49] LABS: Calcium 9.5 mg/dL (8.4-10.2); Potassium 4.4 mmol/L (3.5-5.1); Total Bilirubin 0.9 mg/dL (0.2-1.3); Total Protein 7.2 g/dL (6.3-8.2)
--- NOTE | 2019-03-24 12:21 | P.ANPRN ---
Procedure Note - Anesthesia - Nerve Block Performed Right Transversus Abdominis Single Time Out Performed: Yes (1154) Date of Procedure: 03/24/19 Procedure Start Time: 11:55 Procedure Stop Time: 11:59 Location of Patient: PreOp Indication: Acute Post-Operative Pain, Requested by Surgeon Specifically requested for management of pain by DrRaquel: Brooke Johnson Sedation Type: Sedate with meaningful contact maintained Preparation: Sterile Prep Position: Supine Catheter: None Needle Types: Pajunk Needle Gauge: 20 Ultrasound used to visualize needle placement: Yes Ultrasound used to observe medication spread: Yes Injectate: 0.5% Ropivacaine (see comment for volume) (20cc) Blood Aspirated: No Pain Paresthesia on Injection Noted: No Resistance on Injection: Normal Image Stored and Saved: Yes Events: Uneventful and Well Tolerated Left Transversus Abdominis Single Time Out Performed: Yes (1154) Date of Procedure: 03/24/19 Procedure Start Time: 12:00 Procedure Stop Time: 12:04 Location of Patient: PreOp Indication: Acute Post-Operative Pain, Requested by Surgeon Specifically requested for management of pain by DrRaquel: Brooke Johnson Sedation Type: Sedate with meaningful contact maintained Preparation: Sterile Prep Position: Supine Catheter: None Needle Types: Pajunk Needle Gauge: 20 Ultrasound used to visualize needle placement: Yes Ultrasound used to observe medication spread: Yes Injectate: 0.5% Ropivacaine (see comment for volume) (20cc) Blood Aspirated: No Pain Paresthesia on Injection Noted: No Resistance on Injection: Normal Image Stored and Saved: Yes Events: Uneventful and Well Tolerated
--- NOTE | 2019-03-24 12:24 | P.ANPRN ---
Procedure Note - Anesthesia - Nerve Block Performed Right Transversus Abdominis Single Time Out Performed: Yes (1004) Date of Procedure: 03/24/19 Procedure Start Time: 10:05 Procedure Stop Time: 10:09 Location of Patient: PreOp Indication: Acute Post-Operative Pain, Requested by Surgeon Specifically requested for management of pain by DrRaquel: Brooke Johnson Sedation Type: Sedate with meaningful contact maintained Preparation: Sterile Prep Position: Supine Catheter: None Needle Types: Pajunk Needle Gauge: 20 Ultrasound used to visualize needle placement: Yes Ultrasound used to observe medication spread: Yes Injectate: 0.5% Ropivacaine (see comment for volume) (15cc) Blood Aspirated: No Pain Paresthesia on Injection Noted: No Resistance on Injection: Normal Image Stored and Saved: Yes Events: Uneventful and Well Tolerated Left Rectus Abdominis Single Time Out Performed: Yes (1004) Date of Procedure: 03/24/19 Procedure Start Time: 10:10 Procedure Stop Time: 10:14 Location of Patient: PreOp Indication: Acute Post-Operative Pain, Requested by Surgeon Specifically requested for management of pain by DrRaquel: Brooke Johnson Sedation Type: Sedate with meaningful contact maintained Preparation: Sterile Prep Position: Supine Catheter: None Needle Types: Pajunk Needle Gauge: 20 Ultrasound used to visualize needle placement: Yes Ultrasound used to observe medication spread: Yes Injectate: 0.5% Ropivacaine (see comment for volume) (15cc) Blood Aspirated: No Pain Paresthesia on Injection Noted: No Resistance on Injection: Normal Image Stored and Saved: Yes Events: Uneventful and Well Tolerated
[2019-03-24] MEDS ORDERED: MIDAZOLAM 2 MG/2 ML VIAL ONE (13:14)
[2019-03-24] MEDS ORDERED: ROPIVACAINE 5 MG/ML 30 ML VIAL ONE (13:14)
[2019-03-24] MEDS ORDERED: LIDOCAINE 1% INJ 10MG/ML (20 ML MDV) ONE (13:14)
[2019-03-24] MEDS ORDERED: NEOSTIGMINE 1 MG/ML 10 ML VIAL ONE (13:14)
[2019-03-24] MEDS ORDERED: fentaNYL (PF) 50 MCG/ML 2 ML AMP ONE (13:14)
[2019-03-24] MEDS ORDERED: GLYCOPYRROLATE 0.2 MG/ML 2 ML VIAL ONE (13:14)
[2019-03-24] MEDS ORDERED: ESMOLOL 100 MG/10 ML VIAL ONE (13:14)
[2019-03-24] MEDS ORDERED: PROPOFOL 10 MG/ML 20 ML VIAL IV ONE (13:14)
[2019-03-24] MEDS ORDERED: ROCURONIUM BROMIDE 10 MG/ML 10 ML VIAL IV ONE (13:14)
[2019-03-24] MEDS ORDERED: BUPIVACAINE (PF) 0.25% 30 ML VIAL SQ ONE (13:41)
[2019-03-24 15:38] VITALS: TEMP 96.9
--- NOTE | 2019-03-24 15:58 | P.OP ---
Date of Procedure: 03/24/19 Description of Procedure: SURGEON: BROOKE JOHNSON MD PREOPERATIVE DIAGNOSES: 1. Initial left inguinal hernia 2. Initial incarcerated umbilical hernia 3. Atrial fibrillation 4. Hypertensive heart disease 5. Neuropathy 6. Chronic anticoagulant therapy 7. Hypothyroidism POSTOPERATIVE DIAGNOSES: 1. Initial incarcerated left femoral hernia 2. Initial incarcerated umbilical hernia, 3 cm 3. Atrial fibrillation 4. Hypertensive heart disease 5. Neuropathy 6. Chronic anticoagulant therapy 7. Hypothyroidism OPERATION: 1. Robotic-assisted da Damaso Xi laparoscopic repair of initial incarcerated femoral hernia with mesh, ventralight ST mesh 11.4 cm 2. Robotic-assisted da Damaso Xi laparoscopic repair of initial incarcerated umbilical hernia with mesh, ventralight ST mesh 11.4 cm Anesthesia: GETA, regional, local Estimated Blood Loss (ml): 10 Pathology: 1. Incarcerated umbilical hernia defect 2. Incarcerated left femoral hernia COMPLICATIONS: None. Operative Findings: 1. Incarcerated left femoral hernia 2 x 2 cm 2. Umbilical hernia defect 2 x 3 cm INDICATIONS: The patient is a 79-year-old female who presents with a personal history of multiple abdominal wall hernias. Surgical intervention with laparoscopic versus robotic and open techniques were reviewed. Placement of mesh was also reviewed. Benefits and risks were thoroughly described. Informed consent was obtained. DESCRIPTION OF PROCEDURE: The patient was brought into the operating room and laid in supine position. After general induction, the abdomen had been prepped and draped in standard sterile fashion. Ioban draping was also placed. Prior to incision, a timeout protocol was confirmed with surgical team regarding the patient's name including procedures to be performed. The robot was primed prior to the procedure. A field block using local anesthetic was placed along hernia site including the proposed port sites. Initial incision was made with an #11 blade along the left upper quadrant. A 0 degree 5 mm laparoscopic trocar entry was performed and insufflated. Three 8 mm ports were placed along the upper abdomen under direct localization after exchanging the 5-mm for an 8 mm port. Placements of the ports were 15 cm from the target anatomy and 8 cm apart. The [employer] robot was previously primed, prepped and draped then docked from the right side of the patient onto the left side of the patient. I then sat at the robot Da Damaso Xi console where working arms of the robot including Bovie cautery connected to robotic scissors, needle ambulance driver paramedic, and graspers placed by the research study assistant. The patient was placed in steep Trendelenburg position 16. At the left groin, a 2 cm incarcerated left femoral hernia was identified. The hernia sac was evaginated whereby the peritoneum was scored using Endo scissors with cautery. Once completely reduced into the abdominal cavity, the peritoneal sac of the hernia was stripped without a lipoma identified. The sac was resected and then passed off for further pathological analysis. The size of the hernia defect was 2 cm with intraoperative films obtained. Using a 2-0 V-LOC the peritoneal defect of the left inguinal hernia site was closed using a pursestring suture.. The defect was found to be completely closed with complete reduction of the left inguinal hernia was confirmed. As an onlay, an 11.[address] mesh by [employer] was cut in half and entered into the abdominal cavity via the 8 mm trocar. The mesh was tacked to the pelvis using 2-0 VLOC x 9-inch length sutures. Attention was now brought to the umbilicus. Incarcerated omental contents were found along the umbilicus. Fascial defect were found umbilical hernia defect 3 cm. The incarcerated contents were reduced as the peritoneal fat was cleaned from the abdominal wall. Next, hemostasis was checked with cautery. The hernia defects were oversewn using #1 nonabsorbable V-lock suture for each defect separately with fascial imbrication x 2. Next, ventralight ST mesh 11.4 cm was placed with the rough side towards the abdominal wall as to cover the umbilical defect. 2-0 VLOC 9 inch sutures were used to fixate the mesh. A final endoscopic imaging was obtained. All instruments and pneumoperitoneum were evacuated from the abdominal cavity. The [employer] Dam[employer] Xi robot was undocked from the patient. I re-scrubbed into the case for closure of incisions. The incisions were reapproximated using 4-0 Monocryl in an interrupted subcuti cular fashion. Liquid glue was applied to the skin after cleansing the skin with normal saline and dilute hydrogen peroxide. An abdominal binder was placed. An umbilical dressing was placed prior. At the end of the procedure, needle, sponge, and instrument count had been verified correct by surgical forceps fabricator. The patient was taken to the postanesthesia care unit in stable condition. Plan - Discharge Summary Discharge Rx Participant: Yes New Discharge Prescriptions: New Acetaminophen Tab [Tylenol Tab] 1,000 mg PO Q6H PRN #30 tablet PRN Reason: Pain No Action Hydrochlorothiazide 12.5 mg PO DAILY Metoprolol Tartrate [Lopressor] 25 mg PO BID Levothyroxine Sodium [Synthroid] 150 mcg PO WE Warfarin [Coumadin] 5 mg PO DAILY Levothyroxine Sodium 137 mcg PO SUMOTUTHFRSA Gabapentin [Neurontin] 200 mg PO TID Enoxaparin [Lovenox] 80 mg SQ DAILY ALPRAZolam [Xanax] 0.25 mg PO HS PRN PRN Reason: Insomnia Discharge Medication List Hydrochlorothiazide 12.5 mg PO DAILY 01/18/16 [History] Metoprolol Tartrate [Lopressor] 25 mg PO BID 04/26/16 [History] Levothyroxine Sodium [Synthroid] 150 mcg PO WE 02/17/18 [History] ALPRAZolam [Xanax] 0.25 mg PO HS PRN 03/22/19 [History] Enoxaparin [Lovenox] 80 mg SQ DAILY 03/22/19 [History] Gabapentin [Neurontin] 200 mg PO TID 03/22/19 [History] Levothyroxine Sodium 137 mcg PO SUMOTUTHFRSA 03/22/19 [History] Warfarin [Coumadin] 5 mg PO DAILY 03/22/19 [History] Acetaminophen Tab [Tylenol Tab] 1,000 mg PO Q6H PRN #30 tablet 03/24/19 [Rx] Follow up Appointment(s)/Referral(s): Brooke Johnson MD [STAFF PHYSICIAN] - 03/29/19 Patient Instructions/Handouts: Inguinal Hernia Repair (GEN), Umbilical Hernia Repair (GEN), Abdominal Binder (DC) Activity/Diet/Wound Care/Special Instructions: Start BLOOD THINNER Thursday03/28/19 Wear abdominal binder at all times No lifting over 4 pounds in 4 weeks until Apr 24. June shower. No bath tub soaks for two weeks until Apr 24. Diet as tolerated. No driving while on narcotics. Use Tylenol and ibuprofen scheduled for the next 24-48 hours for best pain relief. Use ice along incisions for the today to prevent swelling. Discharge Disposition: HOME SELF-CARE
[2019-03-24] MEDS ORDERED: TAMSULOSIN 0.4 MG CAP.ER.24H PO ONE (16:00)
[2019-03-24] MEDS ORDERED: ONDANSETRON 4 MG/2 ML VIAL IVP ONE (17:21)
[2019-03-24] MEDS ORDERED: METOCLOPRAMIDE 5 MG/ML 2 ML VIAL IVP ONE (17:22)
[2019-03-24 18:06] VITALS: PULSE 71; RESP 20
[2019-03-24 18:24] VITALS: BP 159/87
== END 2019-03-24 18:25 | disposition home or self-care (01) ==
LOC: OR 09:39
PROVIDERS: ATTEND Surgery Plastic and Reconstructive Surgery
DX: K40.90 Unilateral inguinal hernia, without obstruction or gangrene, not specified as recurrent (principal); K42.0 Umbilical hernia with obstruction, without gangrene; K41.30 Unilateral femoral hernia, with obstruction, without gangrene, not specified as recurrent; I48.11 Longstanding persistent atrial fibrillation; I45.10 Unspecified right bundle-branch block; I47.1 Supraventricular tachycardia; I49.3 Ventricular premature depolarization; I11.9 Hypertensive heart disease without heart failure; E11.42 Type 2 diabetes mellitus with diabetic polyneuropathy; G47.33 Obstructive sleep apnea (adult) (pediatric); E03.9 Hypothyroidism, unspecified; Z79.01 Long term (current) use of anticoagulants; Z79.899 Other long term (current) drug therapy; Z79.890 Hormone replacement therapy; Z88.8 Allergy status to other drugs, medicaments and biological substances; Z82.49 Family history of ischemic heart disease and other diseases of the circulatory system; E78.5 Hyperlipidemia, unspecified; Z85.42 Personal history of malignant neoplasm of other parts of uterus; Z90.710 Acquired absence of both cervix and uterus; Z96.641 Presence of right artificial hip joint; Z87.891 Personal history of nicotine dependence
CPT/HCPCS: 64488; 80053; 85025; 85610; 88302; 49650; 49653; C1781; J2250; J1644; J1100; J2710; J2765; J0690; J2405; J2001; J3010; J2795; J2704; J1170

== ENCOUNTER → 2019-04-12 | Outpatient (CLI) | payer MEDICARE, BC ==
--- NOTE | 2019-04-13 07:39 | US ---
EXAMINATION TYPE: US groin LT DATE OF EXAM: 04/12/2019 COMPARISON: CTs of 12/22/2018 and 06/04/2016 CLINICAL HISTORY: R19.09 Left groin swelling. Left groin palpable x 3 years. Patient states it showed up a few months after she had her hysterectomy due to endometrial cancer. TECHNIQUE/FINDINGS: Targeted grayscale and color ultrasound were performed of the left gro[facility] abnormality. Complex cystic appearing lesion visualized with numerous lacelike internal echoes that appear mobile on real-time imaging. This mass is avascular and measures 6.6 x 4.7 x 4.9. This is seen anterior to t he common femoral vein. Prior CT measurements on 12/22/2018 of 3.8 x 3.4 cm and on 06/04/2016 this julio ured 5.0 x 4.1 cm. IMPRESSION: The avascular probable seroma on the left groin as interval growth measuring up to 6.6 c m and measuring up to 3.8 cm on the most recent exam.
== END | disposition home or self-care (01) ==
LOC: RADUSWWP 15:43
PROVIDERS: ATTEND Surgery Plastic and Reconstructive Surgery
DX: R19.09 Other intra-abdominal and pelvic swelling, mass and lump (principal)

== ENCOUNTER → 2020-03-23 | Outpatient (CLI) | payer MEDICARE, BC ==
--- NOTE | 2020-03-23 14:52 | CT ---
EXAMINATION TYPE: CT abdomen pelvis wo con DATE OF EXAM: 03/23/2020 HISTORY: hernia and abdominal pain. CT DLP: 458 mGycm. Automated Exposure Control for Dose Reduction was Utilized. TECHNIQUE: CT scan of the abdomen and pelvis is performed without oral or IV contrast. COMPARISON: CT abdomen and pelvis December 22, 2018 FINDINGS: Within the limitations of a non-contrast study, the following observations are made. LUNG BASES: Motion artifact degradation. Mild left greater than right bibasilar linear scarring and/o r atelectasis. Cardiomegaly redemonstrated. LIVER/GB: Cholecystectomy clips redemonstrated. PANCREAS: No significant abnormality is seen. SPLEEN: No significant abnormality is seen. ADRENALS: No significant abnormality is seen. KIDNEYS: No significant abnormality is seen. BOWEL: The oral contrast does not reach level of the terminal ileum making evaluation of distal bowel suboptimal. No suspicious small or large bowel dilatation. Focal moderate to severe diverticulosis i n the sigmoid colon. No CT evidence for acute diverticulitis. Persistent mild/moderate fecal prominen ce in the right and transverse colon. GENITAL ORGANS: Uterus surgically absent or markedly atrophic. Scattered tiny bilateral pelvic phlebo liths redemonstrated. LYMPH NODES: No new greater than 1cm abdominal or pelvic lymph nodes are appreciated. OSSEOUS STRUCTURES: Metallic hardware from total right hip arthroplasty causes streak artifact limiti ng evaluation of pelvic structures. Dextroconvex scoliosis centered at L2 level. [id number] m ultilevel spurring in the spine. Grade 1 retrolisthesis L2 on L3 and L3 on L4. Severe disc space narr owing at L4-L5 level with endplate sclerosis and severe spurring. OTHER: Moderate to severe calcified plaque in the ectatic abdominal aorta redemonstrated. No new AAA. IMPRESSION: Prior visualized fluid in the left inguinal region not seen on today's study. No new curtis ia identified. No new or acute findings present.
== END | disposition home or self-care (01) ==
LOC: RADCTMAIN 12:30
PROVIDERS: ATTEND Surgery Plastic and Reconstructive Surgery
DX: R10.84 Generalized abdominal pain (principal)
CPT/HCPCS: 74176

== ENCOUNTER 2020-04-11 07:19 | Day surgery (SDC) | payer MEDICARE, BC ==
[2020-04-09 11:31] VITALS: BMI 28.0
[~2020-04-11 07:19] MED LIST changes: -DEXAMETHASONE SOD PHOSPHATE 10 MG/ML 1 ML VIAL IV ONE; -GABAPENTIN 300 MG CAP PO STA; -HEPARIN SODIUM,PORCINE 5,000 UNIT/ML 1 ML VIAL SQ ONE; -HYDROmorphone 0.5 MG/0.5 ML SYRINGE IVP PRN; +LIDOCAINE 1% (10MG/ML) FOR IV START INTRADERMA PRN; -LIDOCAINE 1% 20 ML VIAL (10MG/ML) FOR IV START INTRADERMA PRN; -MIDAZOLAM 2 MG/2 ML VIAL IV PRN; -SCOPOLAMINE 1.5MG/72HR PATCH TRANSDERM ONE
[2020-04-11 07:50] VITALS: TEMP 98.1
[2020-04-11 08:00] LABS: Glucose,Whole Blood 109 mg/dL (75-99)
[2020-04-11] MEDS ORDERED: METOPROLOL TARTRATE 5 MG/5 ML VIAL IVP ONE (08:02)
--- NOTE | 2020-04-11 08:02 | P.GSHP ---
History of Present Illness H&P Date: 04/11/20 CHIEF COMPLAINT: Colon screen HISTORY OF PRESENT ILLNESS: The patient is a 80-year-old female who presents for colon screen. Lower endoscopy was offered for further evaluation and management. PAST MEDICAL HISTORY: Please see list. PAST SURGICAL HISTORY: Please see list. MEDICATIONS: Please see list. ALLERGIES: Please see list. SOCIAL HISTORY: No illicit drug use FAMILY HISTORY: No reports of Crohn disease or ulcerative colitis. REVIEW OF ORGAN SYSTEMS: CONSTITUTIONAL: No reports of fevers or chills. PHYSICAL EXAM: VITAL SIGNS: Stable GENERAL: Well-developed pleasant in no acute distress. HEENT: No scleral icterus. Extraocular movements grossly intact. Moist buccal mucosa. NECK: Supple without lymphadenopathy. CHEST: Unlabored respirations. Equal bilateral excursions. CARDIOVASCULAR: Regular rate and rhythm. Distal 2+ pulses. ABDOMEN: Soft, nontender, nondistended. MUSCULOSKELETAL: No clubbing, cyanosis, or edema. ASSESSMENT: 1. Colon screen. PLAN: 1. Recommend proceeding with a lower endoscopy Past Medical History Past Medical History: Atrial Fibrillation, Cancer, Hypertension, Thyroid Disorder Additional Past Medical History / Comment(s): states has "lump in stomach" endometrial cancer 2017; neuropathy feet, states pre diabetic History of Any Multi-Drug Resistant Organisms: None Reported Past Surgical History: Section, Cholecystectomy, Hysterectomy, Joint Replacement Additional Past Surgical History / Comment(s): R Hip replaced, cardioversion, Past Anesthesia/Blood Transfusion Reactions: No Reported Reaction Smoking Status: Former smoker - Past Family History Mother Family Medical History: No Reported History Medications and Allergies Home Medications Medication Instructions Recorded Confirmed Type Hydrochlorothiazide 12.5 mg PO DAILY 01/18/16 04/09/20 History [hydroCHLOROthiazide] Metoprolol Tartrate [Lopressor] 25 mg PO BID 04/26/16 04/09/20 History ALPRAZolam [Xanax] 0.25 mg PO HS PRN 03/22/19 04/09/20 History Gabapentin [Neurontin] 200 mg PO TID 03/22/19 04/09/20 History Levothyroxine Sodium 137 mcg PO DAILY 03/22/19 04/09/20 History Warfarin [Coumadin] 5 mg PO DAILY 03/22/19 04/09/20 History Enoxaparin [Lovenox] 80 mg SQ BID 04/09/20 04/09/20 History Allergies Allergy/AdvReac Type Severity Reaction Status Date / Time lisinopril Allergy Rash/Hives Verified 04/11/20 07:44 losartan Allergy Rash/Hives Verified 04/11/20 07:44 Surgical - Exam Vital Signs Temp Pulse Resp BP Pulse Ox 98.1 F 98 16 171/90 98 04/11/20 07:49 04/11/20 07:49 04/11/20 07:49 04/11/20 07:49 04/11/20 07:49 Results - Labs Abnormal Lab Results - Last 24 Hours (Table) 04/11/20 Range/Units 07:56 POC Glucose (mg/dL) 109 H (75-99) mg/dL
[2020-04-11] MEDS ORDERED: PROPOFOL 10 MG/ML 20 ML VIAL IV ONE (08:05)
--- NOTE | 2020-04-11 08:46 | P.OP ---
Date of Procedure: 04/11/20 Description of Procedure: PREOPERATIVE DIAGNOSIS: Colonoscopy screening Chronic anticoagulant use POSTOPERATIVE DIAGNOSIS: Tubular adenoma sigmoid colon Severe sigmoid diverticulosis Chronic anticoagulant use OPERATION: Colonoscopy to the ileocecal valve, cecum Colonoscopy with hot snare polypectomy SURGEON: Brooke Johnson MD. ANESTHESIA: MAC. INDICATIONS: The patient is an 80-year-old female who presents for first colonoscopy screening. Benefits and risks were described and informed consent was obtained. DESCRIPTION OF PROCEDURE: The patient had undergone Suprep tabs. The patient had been brought into the operating room and laid in the left lateral decubitus position. After adequate intravenous sedation, the rectum was examined with 2% lidocaine jelly. No external hemorrhoids were encountered. The rectal tone was within normal limits. No lesions were palpated in the rectal vault. An Olympus colonoscope was advanced until the cecum, ileocecal valve and appendiceal orifice were clearly viewed. The prep was fair. Severe sigmoid diverticulosis was encountered with mild stricture at 20 cm from the anal verge. Colonic polyps were found and removed. No evidence of focal colitis was found. Retroflexion of the scope demonstrated grade 1 internal hemorrhoids without active bleeding or inflammation. The colon was desufflated. The patient had tolerated the procedure well. Withdrawal time was over 6 minutes. FINDINGS: Aronchick preparation quality scale 3 (1-5) Internal hemorrhoids, grade 1 No external hemorrhoids No arteriovenous malformations. Severe sigmoid diverticulosis with stricture at 20 cm from anal verge Removal of 1 polyp: - Snare polypectomy 15 cm from the anal verge, 12 mm tubulovillous adenoma polyp, removed in piecemeal No focal colitis. RECOMMENDATIONS: Given severity of tubular adenomas, recommend repeat colonoscopy 1 year, 2021. Plan - Discharge Summary Discharge Rx Participant: No New Discharge Prescriptions: Continue Hydrochlorothiazide [hydroCHLOROthiazide] 12.5 mg PO DAILY Metoprolol Tartrate [Lopressor] 25 mg PO BID Warfarin [Coumadin] 5 mg PO DAILY Levothyroxine Sodium 137 mcg PO DAILY Gabapentin [Neurontin] 200 mg PO TID ALPRAZolam [Xanax] 0.25 mg PO HS PRN PRN Reason: Insomnia Enoxaparin [Lovenox] 80 mg SQ BID Discharge Medication List Hydrochlorothiazide [hydroCHLOROthiazide] 12.5 mg PO DAILY 01/18/16 [History] Metoprolol Tartrate [Lopressor] 25 mg PO BID 04/26/16 [History] ALPRAZolam [Xanax] 0.25 mg PO HS PRN 03/22/19 [History] Gabapentin [Neurontin] 200 mg PO TID 03/22/19 [History] Levothyroxine Sodium 137 mcg PO DAILY 03/22/19 [History] Warfarin [Coumadin] 5 mg PO DAILY 03/22/19 [History] Enoxaparin [Lovenox] 80 mg SQ BID 04/09/20 [History] Follow up Appointment(s)/Referral(s): Brooke Johnson MD [STAFF PHYSICIAN] - 04/17/20 Patient Instructions/Handouts: Colorectal Polyps (DC), *Surgery [facility] - (Anesthesia) Endoscopy Discharge Instructions, Diverticulosis Diet (GEN), Diverticulosis (DC) Activity/Diet/Wound Care/Special Instructions: Repeat colonoscopy in one year, 2021 Discharge Disposition: HOME SELF-CARE
[2020-04-11 09:02] VITALS: BP 141/80; PULSE 78; RESP 18
--- NOTE | 2020-04-13 09:56 | CDI ---
Outpatient Documentation Clarification Form Date: 04/13/20 CDS/Promotions Executive Name: Billie Wagoner Phone: If any questions, call Radha Ramon Aircraft Arm[employer]ic at [phone] Patient Name: Camilla Valdes Admit Date: 04/11/20 Discharge Date: 04/11/20 ATTENTION: The [facility] Coding Staff appreciate your assistance in clarifying documentation. Please respond to the clarification below the line at the bottom and electronically sign. The [facility] Coding staff will review the response and follow-up if needed. Please note: Queries are made part of the Legal Health Record. If you have any questions, please contact the Aircraft Armament Mechanic. Dear Dr. Johnson, Please provide clarification as to the location of the polyp in the colon. In order to following proper guidelines and cover medical necessity, please specify the name of the section of colon where the polyp was found. Thank you for your kind consideration. FINDINGS: Aronchick preparation quality scale 3 (1-5) Internal hemorrhoids, grade 1 No external hemorrhoids No arteriovenous malformations. Severe sigmoid diverticulosis with stricture at 20 cm from anal verge Removal of 1 polyp: - Snare polypectomy 15 cm from the anal verge, 12 mm tubulovillous adenoma polyp, removed in piecemeal, sigmoid colon No focal colitis. KM 04/13/20 @ 13:25 MTDD
== END 2020-04-11 09:30 | disposition home or self-care (01) ==
LOC: ORWHC2ENDO 07:19
PROVIDERS: ATTEND Surgery Plastic and Reconstructive Surgery
DX: Z12.11 Encounter for screening for malignant neoplasm of colon (principal); D12.5 Benign neoplasm of sigmoid colon; K57.30 Diverticulosis of large intestine without perforation or abscess without bleeding; K64.0 First degree hemorrhoids; Q43.8 Other specified congenital malformations of intestine; I48.91 Unspecified atrial fibrillation; I10 Essential (primary) hypertension; E07.9 Disorder of thyroid, unspecified; G62.9 Polyneuropathy, unspecified; R73.03 Prediabetes; F41.9 Anxiety disorder, unspecified; F32.9 Major depressive disorder, single episode, unspecified; Z85.41 Personal history of malignant neoplasm of cervix uteri; Z98.891 History of uterine scar from previous surgery; Z90.49 Acquired absence of other specified parts of digestive tract; Z90.710 Acquired absence of both cervix and uterus; Z98.890 Other specified postprocedural states; Z96.641 Presence of right artificial hip joint; Z87.891 Personal history of nicotine dependence; Z79.01 Long term (current) use of anticoagulants; Z79.02 Long term (current) use of antithrombotics/antiplatelets; Z79.890 Hormone replacement therapy; Z79.899 Other long term (current) drug therapy; Z88.8 Allergy status to other drugs, medicaments and biological substances
CPT/HCPCS: 88305; 45385; J2704

== ENCOUNTER 2020-09-07 09:52 | Inpatient (IN) | payer MEDICARE, BC ==
[2020-09-07] MEDS ORDERED: SODIUM CHLORIDE 0.9% 500 ML 500 ML IV STA (10:16)
[2020-09-07 10:36] LABS: Basophils % (A) 0 %; Eosinophils # (A) 0.1 k/uL (0-0.7); Eosinophils % (A) 1 %; HCT 43.5 % (34.0-46.0); HGB 14.8 gm/dL (11.4-16.0); Lymphocytes # (A) 0.5 k/uL (1.0-4.8); Lymphocytes % (A) 4 %; MCH 30.6 pg (25.0-35.0); MCHC 34.1 g/dL (31.0-37.0); MCV 89.8 fL (80.0-100.0); Mean Platelet Volume 8.1; Monocytes # (A) 0.7 k/uL (0-1.0); Monocytes % (A) 6 %; Neutrophils % (A) 88 %; Platelet Count 172 k/uL (150-450); RBC 4.84 m/uL (3.80-5.40); RDW 13.4 % (11.5-15.5); WBC 12.5 k/uL (3.8-10.6)
[2020-09-07 10:50] LABS: INR 2.9 (<1.2); Partial Thromboplastin Time 33.3 sec (22.0-30.0); Prothrombin Time 27.9 sec (9.0-12.0)
[2020-09-07 10:52] LABS: Albumin 3.9 g/dL (3.5-5.0); Calcium 9.5 mg/dL (8.4-10.2); Total Bilirubin 1.8 mg/dL (0.2-1.3); Total Protein 6.7 g/dL (6.3-8.2)
[2020-09-07 10:57] LABS: Potassium 3.8 mmol/L (3.5-5.1)
--- NOTE | 2020-09-07 11:16 | ED ---
Fall HPI - General Chief Complaint: Fall Stated Complaint: Fall Time Seen by Provider: 09/07/20 09:54 Source: EMS Mode of arrival: EMS - History of Present Illness Initial Comments: Patient is an 80-year-old female with history of A. fib, hypertension, presenting to the emergency department via EMS, after she fell yesterday. Patient states she has neuropathy in her legs and her feet and often loses her balance secondary to that. She states she was walking and lost her balance and fell backwards. Her son was able to help her into a chair however patient was unable to leave that chair all day yesterday secondary to right hip discomfort. She states she did hit her head on an end table, she did not lose consciousness. She is on Coumadin. Other than the right hip pain, she denies any other injuries from this fall. She states she has a little bit of neck discomfort h owever she always has neck pain. She does not feel like it any more than normal. She denies any chest pain or shortness of breath, no abdominal pain. She denies any fevers or chills. She denies being dizzy or lightheaded. She has no further complaints. EMS did place a c-collar. Patient is tachycardia at 114, 93% on room air, afebrile, BP is 142/94. - Related Data Home Medications Medication Instructions Recorded Confirmed Metoprolol Tartrate [Lopressor] 25 mg PO BID 04/26/16 09/07/20 ALPRAZolam [Xanax] 0.25 mg PO HS PRN 03/22/19 09/07/20 Levothyroxine Sodium 137 mcg PO DAILY 03/22/19 09/07/20 Warfarin [Coumadin] 5 mg PO HS 03/22/19 09/07/20 Acetaminophen Tab [Tylenol] 500 mg PO BID PRN 09/07/20 09/07/20 Gabapentin [Neurontin] 400 mg PO TID 09/07/20 09/07/20 Multivitamins, Thera [Multivitamin 1 tab PO DAILY 09/07/20 09/07/20 (formulary)] hydroCHLOROthiazide [Hydrodiuril] 25 mg PO DAILY 09/07/20 09/07/20 Allergies Allergy/AdvReac Type Severity Reaction Status Date / Time lisinopril Allergy Rash/Hives Verified 09/07/20 10:43 losartan Allergy Rash/Hives Verified 09/07/20 10:43 Review of Systems ROS Statement: Those systems with pertinent positive or pertinent negative responses have been documented in the HPI. ROS Other: All systems not noted in ROS Statement are negative. Past Medical History Past Medical History: Atrial Fibrillation, Cancer, Hypertension, Thyroid Disorde r Additional Past Medical History / Comment(s): states has "lump in stomach" endometrial cancer 2017; neuropathy feet, states pre diabetic History of Any Multi-Drug Resistant Organisms: None Reported Past Surgical History: Section, Cholecystectomy, Hysterectomy, Joint Replacement Additional Past Surgical History / Comment(s): R Hip replaced, cardioversion, Past Anesthesia/Blood Transfusion Reactions: No Reported Reaction Past Psychological History: Anxiety, Depression Smoking Status: Former smoker Past Alcohol Use History: None Reported Past Drug Use History: None Reported - Past Family History Mother Family Medical History: No Reported History General Exam - General Exam Comments Initial Comments: GENERAL: Patient is well-developed and well-nourished. Patient is nontoxic and in no acute distress. HEAD: Atraumatic, normocephalic. There are no hematoma, no signs of basal skull fracture. EYES: Pupils equal round and reactive to light, extraocular movements intact, sclera anicteric, conjunctiva are normal. Eyelids were unremarkable. ENT: TMs normal, nares patent, oropharynx clear without exudates. Moist mucous membranes. NECK: C-collar was placed and EMS prior to arrival, one c-collar is cleared, patient has full,Normal range of motion, supple without lymphadenopathy or JVD. There is no midline tenderness. LUNGS: Unlabored respirations. Breath sounds clear to auscultation bilaterally and equal. No wheezes rales or rhonchi. HEART: Tachycardic, irregular rate and rhythm without murmurs, rubs or gallops. ABDOMEN: Soft, nontender, normoactive bowel sounds. No guarding, no rebound. No masses appreciated. : Deferred MUSCULOSKELETAL: She denies pain with palpation of the right lateral and anterior hip. She does have some right hip flexion but complains of pain. She is neurovascular intact in bilateral lower extremities. There is no obvious leg length discrepancy. Rest of extremities with adequate strength and normal range of motion, no pitting or edema. No clubbing or cyanosis. NEUROLOGICAL: Patient is alert and oriented x 3. Motor and sensory are also intact. Cranial nerves II through XII grossly intact. Symmetrical smile. Normal speech. PSYCH: Normal mood, normal affect. SKIN: Warm, Dry, normal turgor, no rashes or lesions noted. Limitations: no limitations Course Vital Signs 09/07/20 09/07/20 10:00 12:51 Temperature 99.4 F Pulse Rate 114 H 98 Respiratory 16 16 Rate Blood Pressure 142/94 162/119 O2 Sat by Pulse 93 L 100 Oximetry Medical Decision Making - Medical Decision Making Patient is an 80-year-old female with history of A. fib, hypertension, presenting after she fell backwards yesterday. She has been suffering with right hip pain and unable to move from a chair all day yesterday. She did arrive in a c-collar. CT of the brain and C-spine show no acute intracranial abnormality, no acute fracture of the C-spine. C-collar was removed. She has full pain-free range of motion. Right hip x-rays reveal no acute fracture dislocation. This is most likely a contusion. Lab work is showing a slight white count at 12.5, INR is 2.9, troponin did come back elevated at 0.139. Patient does take Coumadin. EKG shows A. fib with T-wave abnormalities, patient has been in the 90s to low 112.. Patient will be admitted with cardiac consult to elevated troponin. Patient accepted by Dr. Camara. Case discussed with Dr. Parker. - Lab Data Result diagrams: 09/07/20 10:18 09/07/20 10:18 Lab Results 09/07/20 09/07/20 09/07/20 Range/Units 10:18 10:18 10:18 WBC 12.5 H (3.8-10.6) k/uL RBC 4.84 (3.80-5.40) m/uL Hgb 14.8 (11.4-16.0) gm/dL Hct 43.5 (34.0-46.0) % MCV 89.8 (80.0-100.0) fL MCH 30.6 (25.0-35.0) pg MCHC 34.1 (31.0-37.0) g/dL RDW 13.4 (11.5-15.5) % Plt Count 172 (150-450) k/uL MPV 8.1 Neutrophils % 88 % Lymphocytes % 4 % Monocytes % 6 % Eosinophils % 1 % Basophils % 0 % Neutrophils # 11.0 H (1.3-7.7) k/uL Lymphocytes # 0.5 L (1.0-4.8) k/uL Monocytes # 0.7 (0-1.0) k/uL Eosinophils # 0.1 (0-0.7) k/uL Basophils # 0.0 (0-0.2) k/uL PT 27.9 H (9.0-12.0) sec INR 2.9 H (<1.2) APTT 33.3 H (22.0-30.0) sec Sodium 134 L (137-145) mmol/L Potassium 3.8 (3.5-5.1) mmol/L Chloride 99 (98-107) mmol/L Carbon Dioxide 26 (22-30) mmol/L Anion Gap 9 mmol/L BUN 22 H (7-17) mg/dL Creatinine 0.77 (0.52-1.04) mg/dL Est GFR (CKD-EPI)AfAm 83 (>60 ml/min/1.73 sqM) Est GFR (CKD-EPI)NonAf 72 (>60 ml/min/1.73 sqM) Glucose 150 H (74-99) mg/dL Plasma Lactic Acid Get (0.7-2.0) mmol/L Calcium 9.5 (8.4-10.2) mg/dL Total Bilirubin 1.8 H (0.2-1.3) mg/dL AST 44 H (14-36) U/L ALT 23 (4-34) U/L Alkaline Phosphatase 65 (38-126) U/L Creatine Kinase 418 H (30-135) U/L Troponin I (0.000-0.034) ng/mL Total Protein 6.7 (6.3-8.2) g/dL Albumin 3.9 (3.5-5.0) g/dL 09/07/20 09/07/20 Range/Units 10:18 10:18 WBC (3.8-10.6) k/uL RBC (3.80-5.40) m/uL Hgb (11.4-16.0) gm/dL Hct (34.0-46.0) % MCV (80.0-100.0) fL MCH (25.0-35.0) pg MCHC (31.0-37.0) g/dL RDW (11.5-15.5) % Plt Count (150-450) k/uL MPV Neutrophils % % Lymphocytes % % Monocytes % % Eosinophils % % Basophils % % Neutrophils # (1.3-7.7) k/uL Lymphocytes # (1.0-4.8) k/uL Monocytes # (0-1.0) k/uL Eosinophils # (0-0.7) k/uL Basophils # (0-0.2) k/uL PT (9.0-12.0) sec INR (<1.2) APTT (22.0-30.0) sec Sodium (137-145) mmol/L Potassium (3.5-5.1) mmol/L Chloride (98-107) mmol/L Carbon Dioxide (22-30) mmol/L Anion Gap mmol/L BUN (7-17) mg/dL Creatinine (0.52-1.04) mg/dL Est GFR (CKD-EPI)AfAm (>60 ml/min/1.73 sqM) Est GFR (CKD-EPI)NonAf (>60 ml/min/1.73 sqM) Glucose (74-99) mg/dL Plasma Lactic Acid Get 1.7 (0.7-2.0) mmol/L Calcium (8.4-10.2) mg/dL Total Bilirubin (0.2-1.3) mg/dL AST (14-36) U/L ALT (4-34) U/L Alkaline Phosphatase (38-126) U/L Creatine Kinase (30-135) U/L Troponin I 0.139 H* (0.000-0.034) ng/mL Total Protein (6.3-8.2) g/dL Albumin (3.5-5.0) g/dL - EKG Data EKG Comments: A. fib with RVR with premature ventricular complexes, RBBB, T-wave abnormalities. Ventricular rate 116, QRS duration 134, QT 386. Disposition Clinical Impression: Fall, Elevated troponin Disposition: ADMITTED IP TO THIS [facility] Condition: Stable Is patient prescribed a controlled substance at d/c from ED?: No Decision Date: 09/07/20 Decision Time: 12:41
--- NOTE | 2020-09-07 11:24 | CT ---
EXAMINATION TYPE: CT brain lore wo con DATE OF EXAM: 09/07/2020 COMPARISON: Brain 06/19/2017 HISTORY: 80-year-old female fall yesterday with injury on Coumadin CT DLP: 1503.9 mGycm Automated exposure control for dose reduction was used. Technique: Examination of the head was done in axial plane without intravenous contrast. Coronal and sagittal reconstructions performed. CT of the cervical spine was obtained in axial plane without intravenous injection of contrast mater ial. Coronal and sagittal reformatted images were obtained from the axial views for evaluation of f ractures, spinal alignment and canal. FINDINGS: Head: There is no evidence of acute intracranial hemorrhage, acute ischemic changes, mass, mass-effect, or extra-axial fluid collection. There is no effacement of cerebral sulci or basal subarachnoid cister ns. There is no hydrocephalus. There is no midline shift. Richter-white matter distinction is preserv ed. Mild generalized supratentorial volume loss. Moderate patchy white matter hypodensities in posterior hemispheres, unchanged from prior. Metastatic calcifications within the bilateral carotid siphons. Mild mucosal thickening right maxillary sinus and ethmoid air cells along with a 1.8 cm mucosal reten tion cyst floor right maxillary sinus. Mastoid air cells well pneumatized. Orbits and globes are inta ct. No calvarial fracture. Cervical spine: Partially visualized large left glenohumeral joint effusion/bursal effusion and atrophy of the rotato r cuff musculature suggesting thickness or cuff tear. No craniocervical junction abnormality, predental space widening, or prevertebral soft tissue swellin g. Moderate to advanced disc/endplate degenerative change mid to lower cervical spine. Hypertrophic facet and uncovertebral joint arthropathy throughout especially towards the right. Degenerative grade 1 anterolisthesis C3-C4. No acute fracture of the cervical spine. Moderate to severe right neuroforaminal stenosis at C3-C4 and C4-C5, mild to moderate on both sides a t C5-C6 and C6/C7. Some venous air at the thoracic inlet likely from peripheral line placement. Sagittal and coronal reformatted images confirm above findings. COMBINED IMPRESSION: 1. No acute intracranial abnormality seen. Mild generalized atrophy and moderate patchy burden of chr onic small vessel ischemic disease. 2. No acute fracture of the cervical spine. Moderate to advanced spondylotic change with degenerative grade 1 anterolisthesis at C3-C4. 3. Partial visualization of a large left glenohumeral joint or bursal effusion. Suspect underlying le ft shoulder rotator cuff tear given rotator cuff muscle atrophy.
--- NOTE | 2020-09-07 12:23 | XR ---
Right hip HISTORY: Trauma and pain 2 views of the right hip. Versed to prior exam 12/26/2017. She is status post right hip arthroplasty. Bone mineralization, joint spaces and alignment are able. Heterotopic new bone formation present about the right hip again noted. Probable vascular calcificati ons present within the pelvis. IMPRESSION: No fracture or dislocation.
[2020-09-07] MEDS ORDERED: KETOROLAC 15 MG/ML 1 ML VIAL IVP STA (12:41)
[2020-09-07] MEDS ORDERED: METOPROLOL TARTRATE 25 MG TAB PO SCH (13:15)
[2020-09-07] MEDS: ACETAMINOPHEN TAB 500 MG TAB PO PRN ×2 (15:49→21:16)
[2020-09-07] MEDS ORDERED: ACETAMINOPHEN TAB 500 MG TAB PO PRN (16:53)
--- NOTE | 2020-09-07 18:42 | XR ---
EXAMINATION TYPE: XR chest 2V DATE OF EXAM: 09/07/2020 COMPARISON: 02/20/2016 HISTORY: Cough. Smoker. TECHNIQUE: FINDINGS: There is some linear density at the left lung base. Heart is borderline enlarged. There are no hilar masses. Thoracic aorta is atheromatous. Lungs are clear of consolidation. There is some spu rring in the thoracic spine. IMPRESSION: There is some mild scarring or atelectasis left lung base which appears new compared to o ld exam. Mild cardiomegaly. No heart failure.
[2020-09-07] MEDS ORDERED: WARFARIN 5 MG TAB PO SCH (21:00)
[2020-09-07] MEDS: METOPROLOL TARTRATE 25 MG TAB PO SCH (21:16)
[2020-09-07] MEDS: GABAPENTIN 400 MG CAP PO SCH (21:16)
[2020-09-08] MEDS: LEVOTHYROXINE 137 MCG TAB PO SCH (06:37)
[2020-09-08] MEDS: ACETAMINOPHEN TAB 500 MG TAB PO PRN ×2 (08:22→16:36)
[2020-09-08] MEDS: METOPROLOL TARTRATE 25 MG TAB PO SCH (08:23)
[2020-09-08] MEDS: MULTIVITAMINS, THERA 1 EACH TAB PO SCH (08:23)
[2020-09-08] MEDS: GABAPENTIN 400 MG CAP PO SCH ×3 (08:23→21:49)
[2020-09-08] MEDS ORDERED: ASPIRIN 325 MG TAB PO SCH (09:00)
[2020-09-08] MEDS ORDERED: hydroCHLOROthiazide 25 MG TAB PO SCH (09:00)
--- NOTE | 2020-09-08 11:19 | P.CRDCN ---
History of Present Illness Consult date: 09/08/20 History of present illness: HISTORY OF PRESENT ILLNESS: This is a 80-year-old female with a past medical history significant for proximal atrial fibrillation on anticoagulation with Coumadin, neuropathy, anxiety, and hypothyroidism. Patient follows in the office with Dr. Ford. We have been asked to see the patient in consultation for elevated troponin. Patient examined at the bedside. Patient states she was at home in her bedroom when she got up to walk to the bathroom. She states that her leg started to feel weak and gave out on her and she fell. She denies feeling dizzy or lightheaded. She denies syncope. Patient denies having any chest pain or pressure at the time of examination. She denies having any chest discomfort over the past 2 weeks. She denies shortness of breath. She denies cough or congestion. Denies fever or chills. EKG reveals atrial fibrillation with mildly uncontrolled ventricular rate. T wave inversions in inferior leads, unchanged from previous EKG Chest xray mild scarring or atelectasis left lung base which appears new compared to old exam. Mild cardiomegaly. No heart failure. Laboratory data: WBC 12.5. Hemoglobin 14.8. Platelet count 172. INR 2.9. Sodium 134. Potassium 3.8. BUN 22. Creatinine 0.77. Lactic acid 1.7. Creatinine kinase 418. Troponin 0.139. 0.171. 0.196. Current home cardiac medications include metoprolol tartrate 25 mg twice a day, warfarin 5 mg daily, hydrochlorothiazide 25 mg daily. Most recent echocardiogram obtained in 2018 revealed ejection fraction 50-55%. Mild mitral regurgitation. Moderate tricuspid regurgitation. Patient underwent dobutamine stress test in November 2019 which was negative for reversible ischemia REVIEW OF SYSTEMS: At the time of my exam: CONSTITUTIONAL: Denies fever or chills. HEENT: Denies blurred vision, vision changes, or eye pain. Denies hemoptysis CARDIOVASCULAR: Denies chest pain. Denies orthopnea. Denies PND. Denies palpitations RESPIRATORY: Denies shortness of breath. GASTROINTESTINAL: Denies abdominal pain. Denies nausea or vomiting. HEMATOLOGIC: Denies bleeding disorders. GENITOURINARY: Denies any blood in urine. SKIN: Denies pruitis. Denies rash. PHYSICAL EXAM: VITAL SIGNS: Reviewed. GENERAL: Well-developed in no acute distress. HEENT: Head is normocephalic. Pupils are equal, round. Sclerae anicteric. Mucous membranes of the mouth are moist. Neck supple. No JVD or thyromegaly LUNGS: Respirations even and unlabored. Lungs essentially clear to auscultation bilaterally. HEART: Irregular rate and rhythm. S1 and S2 heard. ABDOMEN: Soft. Nondistended. Nontender. EXTREMITIES: Normal range of motion. No clubbing or cyanosis. Peripheral pul ses intact. Trace bilateral lower extremity edema NEUROLOGIC: Awake and alert. Oriented x 3. ASSESSMENT: Status post mechanical fall Atrial fibrillation, suspected chronic persistent, on anticoagulation with warfarin Abnormal troponins, flat, not suggestive of acute coronary syndrome, of unclear etiology Elevated creatinine kinase Hypothyroidism Neuropathy Anxiety History of cardioversion PLAN: An acute coronary event has been ruled out Resume home cardiac medications Obtain 2-D echo to assess cardiac current function Further recommendations pending patient's course Nurse practitioner note has been reviewed by physician. Signing provider agrees with the documented findings, assessment, and plan of care. Past Medical History Past Medical History: Atrial Fibrillation, Cancer, Hypertension, Thyroid Disorder Additional Past Medical History / Comment(s): states has "lump in stomach" endometrial cancer 2017; neuropathy feet, states pre diabetic History of Any Multi-Drug Resistant Organisms: None Reported Past Surgical History: Section, Cholecystectomy, Hysterectomy, Joint Replacement Additional Past Surgical History / Comment(s): R Hip replaced, cardioversion, Past Anesthesia/Blood Transfusion Reactions: No Reported Reaction Smoking Status: Former smoker - Past Family History Mother Family Medical History: No Reported History Medications and Allergies Home Medications Medication Instructions Recorded Confirmed Type Metoprolol Tartrate [Lopressor] 25 mg PO BID 04/26/16 09/07/20 History ALPRAZolam [Xanax] 0.25 mg PO HS PRN 03/22/19 09/07/20 History Levothyroxine Sodium 137 mcg PO DAILY 03/22/19 09/07/20 History Warfarin [Coumadin] 5 mg PO HS 03/22/19 09/07/20 History Acetaminophen Tab [Tylenol] 500 mg PO BID PRN 09/07/20 09/07/20 History Gabapentin [Neurontin] 400 mg PO TID 09/07/20 09/07/20 History Multivitamins, Thera [Multivitamin 1 tab PO DAILY 09/07/20 09/07/20 History (formulary)] hydroCHLOROthiazide [Hydrodiuril] 25 mg PO DAILY 09/07/20 09/07/20 History Allergies Allergy/AdvReac Type Severity Reaction Status Date / Time lisinopril Allergy Rash/Hives Verified 09/07/20 10:43 losartan Allergy Rash/Hives Verified 09/07/20 10:43 Physical Exam Vitals: Vital Signs Temp Pulse Pulse Resp BP BP Pulse Ox 09/08/20 04:25 98 F 92 18 121/85 95 09/07/20 23:40 97.8 F 62 18 131/79 93 L 09/07/20 19:32 97.7 F 80 20 117/72 96 09/07/20 15:13 98.3 F 102 H 18 122/82 96 09/07/20 12:51 98 16 162/119 100 09/07/20 10:00 99.4 F 114 H 16 142/94 93 L Intake and Output 09/07/20 09/08/20 09/08/20 22:59 06:59 14:59 Other: Voiding Method Bedside Commode Bedside Commode # Voids 0 1 # Bowel Movements 1 Weight 80 kg 78.5 kg Results 09/07/20 10:18 09/07/20 10:18 Cardiac Enzymes 09/07/20 09/07/20 09/07/20 Range/Units 10:18 10:18 13:53 AST 44 H (14-36) U/L Troponin I 0.139 H* 0.171 H* (0.000-0.034) ng/mL 09/07/20 Range/Units 16:48 AST (14-36) U/L Troponin I 0.196 H* (0.000-0.034) ng/mL Coagulation 09/07/20 Range/Units 10:18 PT 27.9 H (9.0-12.0) sec APTT 33.3 H (22.0-30.0) sec CBC 09/07/20 Range/Units 10:18 WBC 12.5 H (3.8-10.6) k/uL RBC 4.84 (3.80-5.40) m/uL Hgb 14.8 (11.4-16.0) gm/dL Hct 43.5 (34.0-46.0) % Plt Count 172 (150-450) k/uL Comprehensive Metabolic Panel 09/07/20 Range/Units 10:18 Sodium 134 L (137-145) mmol/L Potassium 3.8 (3.5-5.1) mmol/L Chloride 99 (98-107) mmol/L Carbon Dioxide 26 (22-30) mmol/L BUN 22 H (7-17) mg/dL Creatinine 0.77 (0.52-1.04) mg/dL Glucose 150 H (74-99) mg/dL Calcium 9.5 (8.4-10.2) mg/dL AST 44 H (14-36) U/L ALT 23 (4-34) U/L Alkaline Phosphatase 65 (38-126) U/L Total Protein 6.7 (6.3-8.2) g/dL Albumin 3.9 (3.5-5.0) g/dL Current Medications Generic Name Dose Route Start Last Admin Trade Name Freq PRN Reason Stop Dose Admin Acetaminophen 1,000 mg 09/07/20 13:52 09/07/20 21:16 Acetaminophen Tab 500 Mg Tab PO 1,000 mg Q6HR PRN Administration Fever and/ or Pain Alprazolam 0.25 mg 09/07/20 16:53 Alprazolam 0.25 Mg Tab PO HS PRN Insomnia Aspirin 325 mg 09/08/20 09:00 Aspirin 325 Mg Tab PO DAILY [facility] Gabapentin 400 mg 09/07/20 22:00 09/07/20 21:16 Gabapentin 400 Mg Cap PO 400 mg TID HELEN Administration Hydrochlorothiazide 25 mg 09/08/20 09:00 Hydrochlorothiazide 25 Mg Tab PO DAILY [facility] Levothyroxine Sodium 137 mcg 09/08/20 06:30 09/08/20 06:37 Levothyroxine 137 Mcg Tab PO 137 mcg DAILY@0630 HELEN Administration Metoprolol Tartrate 37.5 mg 09/07/20 21:00 09/07/20 21:16 Metoprolol Tartrate 25 Mg Tab PO 37.5 mg BID HELEN Administration Miscellaneous Information 0 each 09/07/20 17:02 Warfarin Per Pharmacy MISCELLANE DIRECTED PRN PHARMACY DOSING WARFARIN Multivitamins 1 each 09/08/20 09:00 Multivitamins, Thera 1 Each Tab PO DAILY [facility] Warfarin Sodium 5 mg 09/07/20 21:00 09/07/20 21:16 Warfarin 5 Mg Tab PO 5 mg HS HELEN Administration Protocol Intake and Output 09/07/20 09/08/20 09/08/20 22:59 06:59 14:59 Other: Voiding Method Bedside Commode Bedside Commode # Voids 0 1 # Bowel Movements 1 Weight 80 kg 78.5 kg 09/07/20 10:18 09/07/20 10:18
[2020-09-08 11:35] LABS: INR 3.5 (<1.2); Prothrombin Time 33.6 sec (9.0-12.0)
--- NOTE | 2020-09-08 12:54 | ECHOF ---
Referral Reason:Positive troponin MEASUREMENTS -------- HEIGHT: 170.2 cm WEIGHT: 78.5 kg BP: RVIDd: 3.5 cm (< 3.3) IVSd: 1.3 cm (0.6 - 1.1) LVIDd: 4.1 cm (3.9 - 5.3) LVPWd: 1.5 cm (0.6 - 1.1) IVSs: 1.6 cm LVIDs: 3.3 cm LVPWs: 2.0 cm LA Diam: 4.2 cm (2.7 - 3.8) Ao Diam: 3.1 cm (2.0 - 3.7) AV Cusp: 1.3 cm (1.5 - 2.6) MV EXCURSION: 20.477 mm (> 18.000) MV EF SLOPE: 106 mm/s (70 - 150) EPSS: 0.4 cm RAP: 10.00 mmHg RVSP: 48.88 mmHg FINDINGS -------- Undetermined rhythm. This was a technically adequate study. The left ventricular size is normal. Overall left ventricular systolic function is low-normal with, an EF between 50 - 55 %. The right ventricle is normal in size. The left atrium is mildly dilated. The right atrial size is normal. There is mild aortic valve sclerosis. There is no evidence of aortic regurgitation. Mild mitral annular calcification present. Mild mitral regurgitation is present. No regurgitation noted There is mild to moderate pulmonary hypertension. The right ventricular sy stolic pressure, as measured by Doppler, is 48.88mmHg. Trace/mild (physiologic) pulmonic regurgitation. The aortic root size is normal. There is no pericardial effusion. CONCLUSIONS -------- 1. The left ventricular size is normal. 2. Overall left ventricular systolic function is low-normal with, an EF between 50 - 55 %. 3. The right ventricle is normal in size. 4. The left atrium is mildly dilated. 5. The right atrial size is normal. 6. There is mild aortic valve sclerosis. 7. Mild mitral annular calcification present. 8. Mild mitral regurgitation is present. 9. No regurgitation noted 10. There is mild to moderate pulmonary hypertension. 11. The right ventricular systolic pressure, as measured by Doppler, is 48.88mmHg. 12. Trace/mild (physiologic) pulmonic regurgitation. 13. The aortic root size is normal. 14. There is no pericardial effusion. [employer] MANAGER: Eveline Jose RDCS
[2020-09-08 14:16] LABS: Appearance,Urine Cloudy (Clear); Bacteria,Urine Moderate /hpf; Bilirubin,Urine Negative (Negative); Blood,Urine Large (Negative); Color,Urine Yellow; Glucose,Urine (UA) Negative (Negative); Ketones,Urine Trace (Negative); Leukocyte Esterase,Urine Large (Negative); Mucus,Urine Rare /hpf; Nitrite,Urine Negative (Negative); Protein,Urine 1+ (Negative); RBC,Urine 26 /hpf (0-5); Specific Gravity,Urine 1.019 (1.001-1.035); Squamous Epithelial Cell,Urine 11 /hpf (0-4); Urobilinogen,Urine <2.0 mg/dL (<2.0); WBC,Urine >182 /hpf (0-5)
[2020-09-08] MEDS: CEPHALEXIN 250 MG CAP PO SCH ×3 (16:36→21:49)
[2020-09-08 17:27] LABS: Chol/HDL Ratio 3.03; LDL Cholesterol,Calculated 57.8 mg/dL (0.0-131.0); VLDL Calculation 15.2 mg/dL (5.00-40.00)
--- NOTE | 2020-09-08 17:54 | P.PN ---
Progress Note - Text Progress Note Date: 09/08/20 Chief Complaint: Fall History of presenting complaint: This is a pleasant 80-year-old patient of Dr. Jenkins. Chronic stable medical conditions include atrial fibrillation, hypertension, hypothyroid, peripheral neuropathy. Patient often loses her balance because of neuropathy. 4:00 in the morning yesterday morning patient lost the balance she thinks and fell backwards. She did bump her head did not lose consciousness. Her right hip was hurting before decided to come in. Denied any chest pain or palpitation. Not sure if she was dizzy. Fractured the right hip was ruled out. Troponins came back positive. Denies any chest pain. No shortness of breath. Patient's son at the bedside. Admitted for further workup. Patient presented with positive troponin. No chest pain. September 08: Laying in bed. Comfortable. Feels a bit tired. No chest pain. A. fib rate around 100 Review of systems: Was done for constitutional, cardiovascular, GI, pulmonary. relevant finding as above Active Medications Acetaminophen (Acetaminophen Tab 500 Mg Tab) 1,000 mg PO Q6HR PRN PRN Reason: Fever and/ or Pain Last Admin: 09/08/20 16:36 Dose: 1,000 mg Documented by: Alprazolam (Alprazolam 0.25 Mg Tab) 0.25 mg PO HS PRN PRN Reason: Insomnia Cephalexin (Cephalexin 250 Mg Cap) 250 mg PO QID [facility] Last Admin: 09/08/20 16:36 Dose: 250 mg Documented by: Gabapentin (Gabapentin 400 Mg Cap) 400 mg PO TID [facility] Last Admin: 09/08/20 16:36 Dose: 400 mg Documented by: Hydrochlorothiazide (Hydrochlorothiazide 25 Mg Tab) 25 mg PO DAILY [facility] Last Admin: 09/08/20 08:22 Dose: 25 mg Documented by: Levothyroxine Sodium (Levothyroxine 137 Mcg Tab) 137 mcg PO DAILY@0630 [facility] Last Admin: 09/08/20 06:37 Dose: 137 mcg Documented by: Metoprolol Tartrate (Metoprolol Tartrate 25 Mg Tab) 37.5 mg PO BID [facility] Last Admin: 09/08/20 08:23 Dose: 37.5 mg Documented by: Miscellaneous Information (Warfarin Per Pharmacy) 0 each MISCELLANE DIRECTED PRN PRN Reason: PHARMACY DOSING WARFARIN Multivitamins (Multivitamins, Thera 1 Each Tab) 1 each PO DAILY [facility] Last Admin: 09/08/20 08:23 Dose: 1 each Documented by: Warfarin Sodium (Warfarin 0.5 Mg Tab) 0 mg PO ONCE ONE Stop: 09/08/20 18:01 Past medical history to include: Atrial fibrillation, hypertension, hypothyroid, endometrial cancer 2017, peripheral neuropathy Social history: Patient started smoking age of 15. No smoking off and on. Patient son lives upstairs. No alcohol Family history: Reviewed, noncontributory to presentation Physical examination: VITAL SIGNS: 97.5, 91, 18, 1 52 x 1 8, 95% room air GENERAL: BMI 27.6, laying in bed, awake comfortable. EYES: Pupils equal. Conjunctiva normal. HEENT: External appearance of nose and ears normal, oral cavity grossly normal. NECK: JVD not raised; masses not palpable. HEART: Heart sounds irregular; no edema. LUNGS: Respiratory rate normal; decreased breath sound. ABDOMEN: Soft, nontender, liver spleen not palpable, no masses palpable. PSYCH: Alert and oriented x3; mood and affect normal. MUSCULAR skeletal: Evidence of OA INVESTIGATIONS, reviewed in the clinical context: 2-D echocardiogram: EF 50-55% WBC 12.5 hemoglobin 14.8 platelets 172 INR 2.9 potassium 3.8 creatinine 0.77 Troponin I 0.139, 0.171 EKG tracing personally reviewed by me-atrial fibrillation rate of 116, PVCs some ST segment changes X-ray of the right hip: D mineralization. No fracture Assessment and plan: -Presyncope likely from atrial fibrillation uncontrolled -Persistent atrial fibrillation, rate still above 100. Increase Lopressor to 50 mg twice daily -Coumadin monitoring Follow INR -Primary osteoarthritis, multiple joints bilaterally Pain medication when necessary -Hypothyroidism Patient is rather hefty doses of Synthroid given her stature. We'll check TSH and a free T4 -Essential hypertension: Uncontrolled Increase Lopressor to 50 mg twice daily, chlorthalidone -Peripheral neuropathy Continue with Neurontin -Chronic gait dysfunction secondary neuropathy Patient be discharged with the cane Increase Lopressor to 50 mg twice daily. Other medications to continue. Discussed with patient.
[2020-09-08] MEDS ORDERED: WARFARIN 0.5 MG TAB PO ONE (18:00)
[2020-09-08] MEDS: METOPROLOL TARTRATE 50 MG TAB PO SCH (21:49)
[2020-09-09] MEDS: ACETAMINOPHEN TAB 500 MG TAB PO PRN ×2 (01:57→12:52)
[2020-09-09] MEDS: ALPRAZolam 0.25 MG TAB PO PRN ×2 (04:09→20:25)
[2020-09-09] MEDS: LEVOTHYROXINE 137 MCG TAB PO SCH (06:46)
[2020-09-09 08:11] LABS: INR 3.6 (<1.2); Prothrombin Time 34.9 sec (9.0-12.0)
[2020-09-09] MEDS: MULTIVITAMINS, THERA 1 EACH TAB PO SCH (08:40)
[2020-09-09] MEDS: CHLORTHALIDONE 25 MG TAB PO SCH (08:40)
[2020-09-09] MEDS: METOPROLOL TARTRATE 50 MG TAB PO SCH ×2 (08:40→20:24)
[2020-09-09] MEDS: CEPHALEXIN 250 MG CAP PO SCH ×4 (08:40→20:25)
[2020-09-09] MEDS: GABAPENTIN 400 MG CAP PO SCH ×3 (08:40→20:25)
[2020-09-09] MEDS: traMADol 50 MG TAB PO PRN (17:58)
[2020-09-09] MEDS ORDERED: WARFARIN 0.5 MG TAB PO ONE (18:00)
--- NOTE | 2020-09-09 22:22 | P.HPIM ---
History of Present Illness H&P Date: 09/07/20 Chief Complaint: Fall History of presenting complaint: This is a pleasant 80-year-old patient of Dr. Jenkins. Chronic stable medical conditions include atrial fibrillation, hypertension, hypothyroid, peripheral neuropathy. Patient often loses her balance because of neuropathy. 4:00 in the morning yesterday morning patient lost the balance she thinks and fell backwards. She did bump her head did not lose consciousness. Her right hip was hurting before decided to come in. Denied any chest pain or palpitation. Not sure if she was dizzy. Fractured the right hip was ruled out. Troponins came back positive. Denies any chest pain. No shortness of breath. Patient's son at the bedside. Admitted for further workup. Review of systems: GEN.: None EYES: None HEENT: None NECK: None RESPIRATORY: None CARDIOVASCULAR: None GASTROINTESTINAL: None GENITOURINARY: None MUSCULOSKELETAL: Joint pains LYMPHATICS: None HEMATOLOGICAL: None PSYCHIATRY: None NEUROLOGICAL: Neuropathy with poor balance Past medical history to include: Atrial fibrillation, hypertension, hypothyroid, endometrial cancer 2017, peripheral neuropathy Social history: Patient started smoking age of 15. No smoking off and on. Patient son lives upstairs. No alcohol Family history: Reviewed, noncontributory to presentation Physical examination: VITAL SIGNS: 99.4, 114, 16, 142/94, 93% room air upon presentation GENERAL: BMI 27.6, laying in bed, awake comfortable. EYES: Pupils equal. Conjunctiva normal. HEENT: External appearance of nose and ears normal, oral cavity grossly normal. NECK: JVD not raised; masses not palpable. HEART: Heart sounds irregular; no edema. LUNGS: Respiratory rate normal; decreased breath sound. ABDOMEN: Soft, nontender, liver spleen not palpable, no masses palpable. PSYCH: Alert and oriented x3; mood and affect normal. MUSCULAR skeletal: Evidence of OA NEUROLOGICAL: Cranial nerves grossly intact; no facial asymmetry, power and sensation grossly intact. LYMPHATICS: No lymph nodes palpable in the axilla and neck INVESTIGATIONS, reviewed in the clinical context: WBC 12.5 hemoglobin 14.8 platelets 172 INR 2.9 potassium 3.8 creatinine 0.77 Troponin I 0.139, 0.171 EKG tracing personally reviewed by me-atrial fibrillation rate of 116, PVCs some ST segment changes X-ray of the right hip: D mineralization. No fracture Chest x-ray film personally reviewed by me: Possible scarring versus atelectasis Assessment and plan: -This is a patient who presents after taking a fall, she thinks possibly she lost her balance. This could be a presyncopal episode from acute non-Q wave NV and possibly underlying uncontrolled atrial fibrillation. Underlying ischemic heart disease needs to be ruled out. 2-D echo -Persistent atrial fibrillation, uncontrolled on presentation Increase Lopressor to 37.5 mg twice a day -Coumadin monitoring Follow INR -Primary osteoarthritis, multiple joints bilaterally Pain medication when necessary -Hypothyroidism Patient is rather hefty doses of Synthroid given her stature. We'll check TSH and a free T4 -Essential hypertension Continue with Lopressor, change hydrochlorothiazide to chlorthalidone -Peripheral neuropathy Continue with Neurontin -Chronic gait dysfunction secondary neuropathy Patient be discharged with the cane Home medications resumed. Lopressor increased to 37.5 twice daily. Cardiology consulted. Telemetry. Care was discussed with the patient and the son of the bedside. Past Medical History Past Medical History: Atrial Fibrillation, Cancer, Hypertension, Thyroid Disorder Additional Past Medical History / Comment(s): states has "lump in stomach" endometrial cancer 2017; neuropathy feet, states pre diabetic History of Any Multi-Drug Resistant Organisms: None Reported Past Surgical History: Section, Cholecystectomy, Hysterectomy, Joint Replacement Additional Past Surgical History / Comment(s): R Hip replaced, cardioversion, Past Anesthesia/Blood Transfusion Reactions: No Reported Reaction Smoking Status: Former smoker - Past Family History Mother Family Medical History: No Reported History Medications and Allergies Home Medications Medication Instructions Recorded Confirmed Type Metoprolol Tartrate [Lopressor] 25 mg PO BID 04/26/16 09/07/20 History ALPRAZolam [Xanax] 0.25 mg PO HS PRN 03/22/19 09/07/20 History Levothyroxine Sodium 137 mcg PO DAILY 03/22/19 09/07/20 History Warfarin [Coumadin] 5 mg PO HS 03/22/19 09/07/20 History Acetaminophen Tab [Tylenol] 500 mg PO BID PRN 09/07/20 09/07/20 History Gabapentin [Neurontin] 400 mg PO TID 09/07/20 09/07/20 History Multivitamins, Thera [Multivitamin 1 tab PO DAILY 09/07/20 09/07/20 History (formulary)] hydroCHLOROthiazide [Hydrodiuril] 25 mg PO DAILY 09/07/20 09/07/20 History Allergies Allergy/AdvReac Type Severity Reaction Status Date / Time lisinopril Allergy Rash/Hives Verified 09/07/20 10:43 losartan Allergy Rash/Hives Verified 09/07/20 10:43 Physical Exam Vitals: Vital Signs Temp Pulse Pulse Resp BP BP Pulse Ox 09/07/20 15:13 98.3 F 102 H 18 122/82 96 09/07/20 12:51 98 16 162/119 100 09/07/20 10:00 99.4 F 114 H 16 142/94 93 L Intake and Output 09/07/20 09/07/20 09/07/20 06:59 14:59 22:59 Other: # Voids 0 # Bowel Movements 1 Weight 81.647 kg 80 kg Results CBC & Chem 7: 09/07/20 10:18 09/07/20 10:18 Labs: Abnormal Lab Results - Last 24 Hours (Table) 09/07/20 09/07/20 09/07/20 Range/Units 10:18 10:18 10:18 WBC 12.5 H (3.8-10.6) k/uL Neutrophils # 11.0 H (1.3-7.7) k/uL Lymphocytes # 0.5 L (1.0-4.8) k/uL PT 27.9 H (9.0-12.0) sec INR 2.9 H (<1.2) APTT 33.3 H (22.0-30.0) sec Sodium 134 L (137-145) mmol/L BUN 22 H (7-17) mg/dL Glucose 150 H (74-99) mg/dL Total Bilirubin 1.8 H (0.2-1.3) mg/dL AST 44 H (14-36) U/L Creatine Kinase 418 H (30-135) U/L Troponin I (0.000-0.034) ng/mL 09/07/20 09/07/20 Range/Units 10:18 13:53 WBC (3.8-10.6) k/uL Neutrophils # (1.3-7.7) k/uL Lymphocytes # (1.0-4.8) k/uL PT (9.0-12.0) sec INR (<1.2) APTT (22.0-30.0) sec Sodium (137-145) mmol/L BUN (7-17) mg/dL Glucose (74-99) mg/dL Total Bilirubin (0.2-1.3) mg/dL AST (14-36) U/L Creatine Kinase (30-135) U/L Troponin I 0.139 H* 0.171 H* (0.000-0.034) ng/mL Thrombosis Risk Factor Assmnt - Choose All That Apply Any of the Below Risk Factors Present?: Yes Each Factor Represents 1 point: Obesity (BMI >25) Other Risk Factors: Yes Each Risk Factor Represents 3 Points: Age 75 years or older Thrombosis Risk Factor Assessment Total Risk Factor Score: 4 Thrombosis Risk Factor Assessment Level: Moderate Risk
--- NOTE | 2020-09-09 22:30 | P.PN ---
Progress Note - Text Progress Note Date: 09/09/20 Chief Complaint: Fall History of presenting complaint: This is a pleasant 80-year-old patient of Dr. Jenkins. Chronic stable medical conditions include atrial fibrillation, hypertension, hypothyroid, peripheral neuropathy. Patient often loses her balance because of neuropathy. 4:00 in the morning yesterday morning patient lost the balance she thinks and fell backwards. She did bump her head did not lose consciousness. Her right hip was hurting before decided to come in. Denied any chest pain or palpitation. Not sure if she was dizzy. Fractured the right hip was ruled out. Troponins came back positive. Denies any chest pain. No shortness of breath. Patient's son at the bedside. Admitted for further workup. Patient presented with positive troponin. No chest pain. September 08: Laying in bed. Comfortable. Feels a bit tired. No chest pain. A. fib rate around 100 September 09: Laying in bed. Oral intake fair. Heart rate better controlled. Some of the bedside. She wants to be reevaluated for inpatient rehab. Review of systems: Was done for constitutional, cardiovascular, GI, pulmonary. relevant finding as above Active Medications Acetaminophen (Acetaminophen Tab 500 Mg Tab) 1,000 mg PO Q6HR PRN PRN Reason: Fever and/ or Pain Last Admin: 09/09/20 12:52 Dose: 1,000 mg Documented by: Alprazolam (Alprazolam 0.25 Mg Tab) 0.25 mg PO HS PRN PRN Reason: Insomnia Last Admin: 09/09/20 20:25 Dose: 0.25 mg Documented by: Cephalexin (Cephalexin 250 Mg Cap) 250 mg PO QID [facility] Last Admin: 09/09/20 20:25 Dose: 250 mg Documented by: Chlorthalidone (Chlorthalidone 25 Mg Tab) 25 mg PO DAILY [facility] Last Admin: 09/09/20 08:40 Dose: 25 mg Documented by: Gabapentin (Gabapentin 400 Mg Cap) 400 mg PO TID [facility] Last Admin: 09/09/20 20:25 Dose: 400 mg Documented by: Levothyroxine Sodium (Levothyroxine 112 Mcg Tab) 112 mcg PO DAILY@0630 [facility] Metoprolol Tartrate (Metoprolol Tartrate 50 Mg Tab) 50 mg PO BID [facility] Last Admin: 09/09/20 20:24 Dose: 50 mg Documented by: Miscellaneous Information (Warfarin Per Pharmacy) 0 each MISCELLANE DIRECTED PRN PRN Reason: PHARMACY DOSING WARFARIN Multivitamins (Multivitamins, Thera 1 Each Tab) 1 each PO DAILY HELEN Last Admin: 09/09/20 08:40 Dose: 1 each Documented by: Tramadol HCl (Tramadol 50 Mg Tab) 50 mg PO Q6H PRN PRN Reason: Moderate Pain Last Admin: 09/09/20 17:58 Dose: 50 mg Documented by: Past medical history to include: Atrial fibrillation, hypertension, hypothyroid, endometrial cancer 2017, peripheral neuropathy Social history: Patient started smoking age of 15. No smoking off and on. Patient son lives upstairs. No alcohol Family history: Reviewed, noncontributory to presentation Physical examination: VITAL SIGNS: 97.9, 94, 16, 145/91, 96% room air GENERAL: BMI 27.6, laying in bed, awake comfortable. EYES: Pupils equal. Conjunctiva normal. HEENT: External appearance of nose and ears normal, oral cavity grossly normal. NECK: JVD not raised; masses not palpable. HEART: Heart sounds irregular; no edema. LUNGS: Respiratory rate normal; decreased breath sound. ABDOMEN: Soft, nontender, liver spleen not palpable, no masses palpable. PSYCH: Alert and oriented x3; mood and affect normal. MUSCULAR skeletal: Evidence of OA INVESTIGATIONS, reviewed in the clinical context: TSH 0.772 UA positive Urine culture: Group D enterococcus September 09: INR 3.6 2-D echocardiogram: EF 50-55% WBC 12.5 hemoglobin 14.8 platelets 172 INR 2.9 potassium 3.8 creatinine 0.77 Troponin I 0.139, 0.171 EKG tracing personally reviewed by me-atrial fibrillation rate of 116, PVCs some ST segment changes X-ray of the right hip: D mineralization. No fracture Assessment and plan: -Presyncope likely from atrial fibrillation uncontrolled -Persistent atrial fibrillation, rate still above 100. Increase Lopressor to 50 mg twice daily -Acute UTI with cystitis from group D enterococcus Change Keflex to amoxicillin -Coumadin monitoring Follow INR -Primary osteoarthritis, multiple joints bilaterally Pain medication when necessary -Hypothyroidism, with some over replacement. TSH is 0.772 Decrease Synthroid 112 g daily -Essential hypertension: Uncontrolled Increase Lopressor to 50 mg twice daily, chlorthalidone -Peripheral neuropathy Continue with Neurontin -Chronic gait dysfunction secondary neuropathy Patient be discharged with the cane Care was discussed length with the patient and son at the bedside. PTOT's been consulted. psychiatric social worker supervisor to evaluate inpatient rehab. Discussed with the nurse. Dosage of Synthroid cutback to 112 g daily. Stop Keflex. Start amoxicillin Total time spent today about 40 minutes with over 20 minutes of discussion..
[2020-09-09] MEDS: AMOXICILLIN 500 MG CAP PO SCH (23:07)
[2020-09-10] MEDS: LEVOTHYROXINE 112 MCG TAB PO SCH (05:52)
[2020-09-10] MEDS: AMOXICILLIN 500 MG CAP PO SCH ×3 (05:52→21:35)
[2020-09-10 06:08] LABS: INR 3.2 (<1.2); Prothrombin Time 30.6 sec (9.0-12.0)
[2020-09-10] MEDS: GABAPENTIN 400 MG CAP PO SCH ×3 (09:03→21:35)
[2020-09-10] MEDS: METOPROLOL TARTRATE 50 MG TAB PO SCH ×2 (09:03→19:39)
[2020-09-10] MEDS: MULTIVITAMINS, THERA 1 EACH TAB PO SCH (09:03)
[2020-09-10] MEDS: CHLORTHALIDONE 25 MG TAB PO SCH (09:03)
[2020-09-10] MEDS: traMADol 50 MG TAB PO PRN ×2 (13:10→21:34)
[2020-09-10] MEDS ORDERED: WARFARIN 0.5 MG TAB PO ONE (18:00)
--- NOTE | 2020-09-10 21:03 | P.PN ---
Progress Note - Text Progress Note Date: 09/10/20 Chief Complaint: Fall History of presenting complaint: This is a pleasant 80-year-old patient of Dr. Jenkins. Chronic stable medical conditions include atrial fibrillation, hypertension, hypothyroid, peripheral neuropathy. Patient often loses her balance because of neuropathy. 4:00 in the morning yesterday morning patient lost the balance she thinks and fell backwards. She did bump her head did not lose consciousness. Her right hip was hurting before decided to come in. Denied any chest pain or palpitation. Not sure if she was dizzy. Fractured the right hip was ruled out. Troponins came back positive. Denies any chest pain. No shortness of breath. Patient's son at the bedside. Admitted for further workup. Patient presented with positive troponin. No chest pain. Heart rate controlled with Lopressor. 50 mg twice a day. TSH low. Dose of Synthroid cutback. UTI with group D enterococcus. Started on amoxicillin. September 08: Laying in bed. Comfortable. Feels a bit tired. No chest pain. A. fib rate around 100 September 09: Laying in bed. Oral intake fair. Heart rate better controlled. Some of the bedside. She wants to be reevaluated for inpatient rehab. September 10: Sitting up in bed. Comfortable. Heart rate controlled. Review of systems: Was done for constitutional, cardiovascular, GI, pulmonary. relevant finding as above Active Medications Acetaminophen (Acetaminophen Tab 500 Mg Tab) 1,000 mg PO Q6HR PRN PRN Reason: Fever and/ or Pain Last Admin: 09/09/20 12:52 Dose: 1,000 mg Documented by: Alprazolam (Alprazolam 0.25 Mg Tab) 0.25 mg PO HS PRN PRN Reason: Insomnia Last Admin: 09/09/20 20:25 Dose: 0.25 mg Documented by: Amoxicillin (Amoxicillin 500 Mg Cap) 500 mg PO Q8H ON LICENSE OF [facility] Last Admin: 09/10/20 13:10 Dose: 500 mg Documented by: Chlorthalidone (Chlorthalidone 25 Mg Tab) 25 mg PO DAILY ON LICENSE OF [facility] Last Admin: 09/10/20 09:03 Dose: 25 mg Documented by: Gabapentin (Gabapentin 400 Mg Cap) 400 mg PO TID ON LICENSE OF [facility] Last Admin: 09/10/20 17:48 Dose: 400 mg Documented by: Levothyroxine Sodium (Levothyroxine 112 Mcg Tab) 112 mcg PO DAILY@0630 ON LICENSE OF [facility] Last Admin: 09/10/20 05:52 Dose: 112 mcg Documented by: Metoprolol Tartrate (Metoprolol Tartrate 50 Mg Tab) 50 mg PO BID ON LICENSE OF [facility] Last Admin: 09/10/20 19:39 Dose: 50 mg Documented by: Miscellaneous Information (Warfarin Per Pharmacy) 0 each MISCELLANE DIRECTED PRN PRN Reason: PHARMACY DOSING WARFARIN Multivitamins (Multivitamins, Thera 1 Each Tab) 1 each PO DAILY ON LICENSE OF [facility] Last Admin: 09/10/20 09:03 Dose: 1 each Documented by: Tramadol HCl (Tramadol 50 Mg Tab) 50 mg PO Q6H PRN PRN Reason: Moderate Pain Last Admin: 09/10/20 13:10 Dose: 50 mg Documented by: Past medical history to include: Atrial fibrillation, hypertension, hypothyroid, endometrial cancer 2017, peripheral neuropathy Social history: Patient started smoking age of 15. No smoking off and on. Patient son lives upstairs. No alcohol Family history: Reviewed, noncontributory to presentation Physical examination: VITAL SIGNS: 97.6, 105, 17, 170/81, 98% room air GENERAL: Sitting up in bed, comfortable. EYES: Pupils equal. Conjunctiva normal. HEENT: External appearance of nose and ears normal, oral cavity grossly normal. NECK: JVD not raised; masses not palpable. HEART: Heart sounds irregular; no edema. LUNGS: Respiratory rate normal; decreased breath sound. ABDOMEN: Soft, nontender, liver spleen not palpable, no masses palpable. PSYCH: Alert and oriented x3; mood and affect normal. MUSCULAR skeletal: Evidence of OA INVESTIGATIONS, reviewed in the clinical context: September 10: INR 3.2 TSH 0.772 UA positive Urine culture: Group D enterococcus September 09: INR 3.6 2-D echocardiogram: EF 50-55% WBC 12.5 hemoglobin 14.8 platelets 172 INR 2.9 potassium 3.8 creatinine 0.77 Troponin I 0.139, 0.171 EKG tracing personally reviewed by me-atrial fibrillation rate of 116, PVCs some ST segment changes X-ray of the right hip: D mineralization. No fracture Assessment and plan: -Presyncope likely from atrial fibrillation uncontrolled Follow -Persistent atrial fibrillation, -better controlled Lopressor to 50 mg twice daily -Acute UTI with cystitis from group D enterococcus amoxicillin -Coumadin monitoring Follow INR -Primary osteoarthritis, multiple joints bilaterally Pain medication when necessary -Hypothyroidism, with over replacement. TSH is 0.772 Decrease Synthroid 112 g daily -Essential hypertension: Controlled Lopressor to 50 mg twice daily, chlorthalidone -Peripheral neuropathy Continue with Neurontin -Chronic gait dysfunction secondary neuropathy Patient be discharged with the cane -Acute on chronic medical debility PTOT. Discussed with patient. Discussed with skilled nursing case manager. Social work is involved in a pending inpatient rehab assessment and placement accordingly.. Current medications to continue
[2020-09-10] MEDS: ALPRAZolam 0.25 MG TAB PO PRN (22:14)
[2020-09-10 23:28] VITALS: RESP 16
[2020-09-11] MEDS: traMADol 50 MG TAB PO PRN (05:16)
[2020-09-11] MEDS: LEVOTHYROXINE 112 MCG TAB PO SCH (05:17)
[2020-09-11] MEDS: AMOXICILLIN 500 MG CAP PO SCH ×2 (05:26→15:29)
[2020-09-11 08:00] LABS: Basophils # (A) 0.1 k/uL (0-0.2); Basophils % (A) 1 %; Eosinophils # (A) 0.2 k/uL (0-0.7); Eosinophils % (A) 3 %; HCT 43.1 % (34.0-46.0); HGB 14.7 gm/dL (11.4-16.0); Lymphocytes # (A) 0.7 k/uL (1.0-4.8); Lymphocytes % (A) 12 %; MCH 30.9 pg (25.0-35.0); MCHC 34.1 g/dL (31.0-37.0); MCV 90.4 fL (80.0-100.0); Mean Platelet Volume 7.9; Monocytes # (A) 0.7 k/uL (0-1.0); Monocytes % (A) 11 %; Neutrophils # (A) 4.5 k/uL (1.3-7.7); Neutrophils % (A) 72 %; Platelet Count 226 k/uL (150-450); RBC 4.77 m/uL (3.80-5.40); RDW 13.7 % (11.5-15.5); WBC 6.2 k/uL (3.8-10.6)
[2020-09-11 08:07] LABS: INR 2.2 (<1.2); Prothrombin Time 21.5 sec (9.0-12.0)
[2020-09-11 08:08] LABS: Calcium 9.2 mg/dL (8.4-10.2); Potassium 3.8 mmol/L (3.5-5.1)
[2020-09-11 09:22] VITALS: TEMP 97.6
[2020-09-11] MEDS: MULTIVITAMINS, THERA 1 EACH TAB PO SCH (09:23)
[2020-09-11] MEDS: CHLORTHALIDONE 25 MG TAB PO SCH (09:23)
[2020-09-11] MEDS: METOPROLOL TARTRATE 50 MG TAB PO SCH (09:24)
[2020-09-11] MEDS: GABAPENTIN 400 MG CAP PO SCH (09:24)
[2020-09-11 11:53] VITALS: BP 132/83; PULSE 77
--- NOTE | 2020-09-11 13:55 | P.DS ---
Providers Date of admission: 09/07/20 12:38 Expected date of discharge: 09/11/20 Attending physician: Shola Camara Primary care physician: Lucio Jenkins [facility] Course: Chief Complaint: Fall History of presenting complaint: This is a pleasant 80-year-old patient of Dr. Jenkins. Chronic stable medical conditions include atrial fibrillation, hypertension, hypothyroid, peripheral neuropathy. Patient often loses her balance because of neuropathy. 4:00 in the morning yesterday morning patient lost the balance she thinks and fell backwards. She did bump her head did not lose consciousness. Her right hip was hurting before decided to come in. Denied any chest pain or palpitation. Not sure if she was dizzy. Fracture right hip was ruled out. Troponins came back positive. Denies any chest pain. No shortness of breath. Patient's son at the bedside. Admitted for further workup. Patient presented with positive troponin. Atrial fibrillation uncontrolled. Found to be the reason for the troponin. No chest pain. Heart rate controlled with Lopressor. 50 mg twice a day. TSH low. Dose of Synthroid cutback. UTI with group D enterococcus. Started on amoxicillin. September 08: Laying in bed. Comfortable. Feels a bit tired. No chest pain. A. fib rate around 100 September 09: Laying in bed. Oral intake fair. Heart rate better controlled. Some of the bedside. She wants to be reevaluated for inpatient rehab. September 10: Sitting up in bed. Comfortable. Heart rate controlled. September 11: Heart rate controlled. Sitting up. Oral intake fair. Has been accepted to inpatient rehab. Discussed with social worker assistant. Consultation: Cardiology associates Past medical history to include: Atrial fibrillation, hypertension, hypothyroid, endometrial cancer 2017, peripheral neuropathy Social history: Patient started smoking age of 15. No smoking off and on. Patient son lives upstairs. No alcohol Family history: Reviewed, noncontributory to presentation Physical examination: VITAL SIGNS: 97.6, 77, 16, 132.83, 96% room air GENERAL: Sitting up in bed, comfortable. EYES: Pupils equal. Conjunctiva normal. HEENT: External appearance of nose and ears normal, oral cavity grossly normal. NECK: JVD not raised; masses not palpable. HEART: Heart sounds irregular; no edema. LUNGS: Respiratory rate normal; decreased breath sound. ABDOMEN: Soft, nontender, liver spleen not palpable, no masses palpable. PSYCH: Alert and oriented x3; mood and affect normal. MUSCULAR skeletal: Evidence of OA INVESTIGATIONS, reviewed in the clinical context: September 11: WBC 6.2 hemoglobin 14.7 platelets 226 INR 2.2 potassium 3.8 creatinine 0.75 September 10: INR 3.2 TSH 0.772 UA positive Urine culture: Group D enterococcus September 09: INR 3.6 2-D echocardiogram: EF 50-55% WBC 12.5 hemoglobin 14.8 platelets 172 INR 2.9 potassium 3.8 creatinine 0.77 Troponin I 0.139, 0.171 EKG tracing personally reviewed by me-atrial fibrillation rate of 116, PVCs some ST segment changes X-ray of the right hip: D mineralization. No fracture Assessment and plan: -Presyncope likely from atrial fibrillation uncontrolled Follow -Persistent atrial fibrillation, -better controlled Lopressor 50 mg twice daily -Acute UTI with cystitis from group D enterococcus amoxicillin-complete course -Coumadin monitoring Follow INR -Primary osteoarthritis, multiple joints bilaterally Pain medication when necessary -Hypothyroidism, with over replacement. TSH is 0.772 Decrease Synthroid 112 g daily. Recheck TSH in 4 weeks -Essential hypertension: Controlled Lopressor to 50 mg twice daily, chlorthalidone -Peripheral neuropathy Continue with Neurontin -Chronic gait dysfunction secondary neuropathy -Acute on chronic medical debility PTOT. Disposition: [facility] Patient Condition at Discharge: Stable Plan - Discharge Summary Discharge Rx Participant: No New Discharge Prescriptions: New Chlorthalidone [Hygroton] 25 mg PO DAILY tab Amoxicillin 500 mg PO Q8H #30 cap Acetaminophen Tab [Tylenol] 650 mg PO Q6H PRN #1 tab PRN Reason: Pain Continue Warfarin [Coumadin] 5 mg PO HS Levothyroxine Sodium 137 mcg PO DAILY Multivitamins, Thera [Multivitamin (formulary)] 1 tab PO DAILY Gabapentin [Neurontin] 400 mg PO TID #9 cap ALPRAZolam [Xanax] 0.25 mg PO HS PRN #3 tab PRN Reason: Insomnia Changed Metoprolol Tartrate [Lopressor] 50 mg PO BID #0 Discontinued hydroCHLOROthiazide [Hydrodiuril] 25 mg PO DAILY Acetaminophen Tab [Tylenol] 500 mg PO BID PRN PRN Reason: Pain Discharge Medication List Levothyroxine Sodium 137 mcg PO DAILY 03/22/19 [History] Warfarin [Coumadin] 5 mg PO HS 03/22/19 [History] Multivitamins, Thera [Multivitamin (formulary)] 1 tab PO DAILY 09/07/20 [History] ALPRAZolam [Xanax] 0.25 mg PO HS PRN #3 tab 09/11/20 [Rx] Acetaminophen Tab [Tylenol] 650 mg PO Q6H PRN #1 tab 09/11/20 [Rx] Amoxicillin 500 mg PO Q8H #30 cap 09/11/20 [Rx] Chlorthalidone [Hygroton] 25 mg PO DAILY tab 09/11/20 [Rx] Gabapentin [Neurontin] 400 mg PO TID #9 cap 09/11/20 [Rx] Metoprolol Tartrate [Lopressor] 50 mg PO BID #0 09/11/20 [Rx] Follow up Appointment(s)/Referral(s): Lucio Jenkins DO [Primary Care Provider] - 1-2 days
[2020-09-11] MEDS ORDERED: WARFARIN 2 MG TAB PO ONE (18:00)
== END 2020-09-11 16:07 | DRG 310 ==
LOC: EC 09:52 → 3SCARD 12:38
PROVIDERS: ADMIT Hospitalist; ATTEND Hospitalist
DX: I48.19 Other persistent atrial fibrillation (principal); E03.9 Hypothyroidism, unspecified; R55 Syncope and collapse; N30.90 Cystitis, unspecified without hematuria; R77.8 Other specified abnormalities of plasma proteins; R26.9 Unspecified abnormalities of gait and mobility; M15.9 Polyosteoarthritis, unspecified; G62.9 Polyneuropathy, unspecified; I10 Essential (primary) hypertension; F17.210 Nicotine dependence, cigarettes, uncomplicated; F41.9 Anxiety disorder, unspecified; B95.2 Enterococcus as the cause of diseases classified elsewhere; I08.1 Rheumatic disorders of both mitral and tricuspid valves; R00.0 Tachycardia, unspecified; Z20.822 Contact with and (suspected) exposure to COVID-19; W01.0XXA Fall on same level from slipping, tripping and stumbling without subsequent striking against object, initial encounter; Y93.01 Activity, walking, marching and hiking; Z79.01 Long term (current) use of anticoagulants; Z79.890 Hormone replacement therapy; Z79.899 Other long term (current) drug therapy; Z85.42 Personal history of malignant neoplasm of other parts of uterus; Z90.710 Acquired absence of both cervix and uterus; Z96.641 Presence of right artificial hip joint; Z88.8 Allergy status to other drugs, medicaments and biological substances
CPT/HCPCS: 36415; 70450; 71046; 72125; 73502; 80048; 80053; 80061; 81001; 82550; 83605; 84443; 84484; 85025; 85610; 85730; 87040; 87077; 87086; 87186; 87635; 93005; 93306; 96360; 96361; 99285

== ENCOUNTER 2020-10-05 | Emergency (ER) | payer MEDICARE, BC ==
--- NOTE | 2020-10-05 00:46 | XR ---
EXAMINATION TYPE: XR chest 1V portable DATE OF EXAM: 10/05/2020 COMPARISON: 09/07/2020 HISTORY: Chest pain TECHNIQUE: FINDINGS: There is no heart failure nor confluent pneumonic infiltrate. Costophrenic angles are clear . Facet aorta is atheromatous. There are chest leads. There are no hilar masses. IMPRESSION: There is mild cardiomegaly. No active cardiac pulmonary disease. No adverse change.
[2020-10-05 01:34] LABS: Basophils % (A) 1 %; Eosinophils % (A) 1 %; HCT 38.3 % (34.0-46.0); HGB 13.1 gm/dL (11.4-16.0); Lymphocytes % (A) 21 %; MCH 32.1 pg (25.0-35.0); MCHC 34.3 g/dL (31.0-37.0); MCV 93.6 fL (80.0-100.0); Mean Platelet Volume 7.5; Monocytes # (A) 0.5 k/uL (0-1.0); Monocytes % (A) 11 %; Neutrophils % (A) 63 %; Platelet Count 257 k/uL (150-450); RBC 4.09 m/uL (3.80-5.40); WBC 4.8 k/uL (3.8-10.6)
[2020-10-05 01:50] LABS: Albumin 3.2 g/dL (3.5-5.0); Calcium 9.2 mg/dL (8.4-10.2); Magnesium 1.8 mg/dL (1.6-2.3); Potassium 3.6 mmol/L (3.5-5.1); Total Bilirubin 0.8 mg/dL (0.2-1.3); Total Protein 6.1 g/dL (6.3-8.2)
[2020-10-05 01:51] LABS: INR 1.4 (<1.2); Partial Thromboplastin Time 30.1 sec (22.0-30.0); Prothrombin Time 13.8 sec (9.0-12.0)
--- NOTE | 2020-10-05 03:06 | ED ---
Chest Pain HPI - General Chief Complaint: Chest Pain Stated Complaint: Chest Pain Time Seen by Provider: 10/05/20 00:23 Source: patient, EMS Mode of arrival: EMS - Related Data Home Medications Medication Instructions Recorded Confirmed Levothyroxine Sodium 137 mcg PO DAILY 03/22/19 09/07/20 Warfarin [Coumadin] 5 mg PO HS 03/22/19 09/07/20 Multivitamins, Thera [Multivitamin 1 tab PO DAILY 09/07/20 09/07/20 (formulary)] Previous Rx's Medication Instructions Recorded ALPRAZolam [Xanax] 0.25 mg PO HS PRN #3 tab 09/11/20 Acetaminophen Tab [Tylenol] 650 mg PO Q6H PRN #1 tab 09/11/20 Amoxicillin 500 mg PO Q8H #30 cap 09/11/20 Chlorthalidone [Hygroton] 25 mg PO DAILY tab 09/11/20 Gabapentin [Neurontin] 400 mg PO TID #9 cap 09/11/20 Metoprolol Tartrate [Lopressor] 50 mg PO BID #0 09/11/20 Allergies Allergy/AdvReac Type Severity Reaction Status Date / Time lisinopril Allergy Rash/Hives Verified 10/05/20 00:17 losartan Allergy Rash/Hives Verified 10/05/20 00:17 Review of Systems ROS Statement: Those systems with pertinent positive or pertinent negative responses have been documented in the HPI. ROS Other: All systems not noted in ROS Statement are negative. Past Medical History Past Medical History: Atrial Fibrillation, Cancer, Hypertension, Thyroid Disorder Additional Past Medical History / Comment(s): states has "lump in stomach" endometrial cancer 2017; neuropathy feet, states pre diabetic History of Any Multi-Drug Resistant Organisms: None Reported Past Surgical History: Section, Cholecystectomy, Hysterectomy, Joint Replacement Additional Past Surgical History / Comment(s): R Hip replaced, cardioversion, Past Anesthesia/Blood Transfusion Reactions: No Reported Reaction Past Psychological History: Anxiety, Depression Smoking Status: Former smoker Past Alcohol Use History: None Reported Past Drug Use History: None Reported - Past Family History Mother Family Medical History: No Reported History Course Vital Signs 10/05/20 00:15 Temperature 98.7 F Pulse Rate 80 Respiratory 19 Rate Blood Pressure 143/77 O2 Sat by Pulse 97 Oximetry Disposition Clinical Impression: Atypical chest pain Disposition: HOME SELF-CARE Condition: Good Instructions (If sedation given, give patient instructions): Chest Pain (ED) Is patient prescribed a controlled substance at d/c from ED?: No Referrals: Lucio Jenkins DO [Primary Care Provider] - 1-2 days
[2020-10-05 03:17] VITALS: RESP 20
[2020-10-05 03:23] VITALS: BP 125/79; PULSE 91; TEMP 98.3
== END 2020-10-05 03:28 | disposition home or self-care (01) ==
LOC: EC
DX: R07.89 Other chest pain (principal); I48.91 Unspecified atrial fibrillation; I10 Essential (primary) hypertension; G62.9 Polyneuropathy, unspecified; F32.9 Major depressive disorder, single episode, unspecified; F41.9 Anxiety disorder, unspecified; Z87.891 Personal history of nicotine dependence; Z79.01 Long term (current) use of anticoagulants
CPT/HCPCS: 36415; 71045; 80053; 83735; 83880; 84484; 85025; 85610; 85730; 93005; 99285

== ENCOUNTER → 2020-10-05 | Outpatient (CLI) | payer MEDICARE, BC | END | disposition home or self-care (01) | LOC: RADCTMAIN 14:21 | PROVIDERS: ATTEND Internal Medicine Geriatric Medicine | DX: Z53.9 Procedure and treatment not carried out, unspecified reason (principal) ==

== ENCOUNTER 2021-12-23 11:35 | Emergency (ER) | payer MEDICARE, BC ==
[2021-12-23 12:25] VITALS: TEMP 98.1
[2021-12-23 15:38] LABS: Amorphous Sediment,Urine Rare /hpf; Appearance,Urine Clear (Clear); Bilirubin,Urine Negative (Negative); Blood,Urine Moderate (Negative); Color,Urine Yellow; Glucose,Urine (UA) Negative (Negative); Ketones,Urine Negative (Negative); Leukocyte Esterase,Urine Moderate (Negative); Mucus,Urine Rare /hpf; Nitrite,Urine Negative (Negative); PH, Urine 7.5 (5.0-8.0); Protein,Urine 1+ (Negative); RBC,Urine 104 /hpf (0-5); Specific Gravity,Urine 1.015 (1.001-1.035); Squamous Epithelial Cell,Urine 1 /hpf (0-4); Urobilinogen,Urine <2.0 mg/dL (<2.0); WBC,Urine 9 /hpf (0-5)
[2021-12-23] MEDS ORDERED: CEPHALEXIN 500 MG CAP PO STA (15:46)
--- NOTE | 2021-12-23 15:54 | ED ---
General Adult HPI - General Chief complaint: Urogenital Stated complaint: UTI Time Seen by Provider: 12/23/21 14:51 Source: patient, RN notes reviewed, old records reviewed Mode of arrival: ambulatory Limitations: no limitations - History of Present Illness Initial comments: 81 yo female presenting for evaluation of dysuria. Patient has had history of recurrent cystitis in the past. No flank pain. No abdominal pain. No vomiting. No fever. She injured her frequency and urgency as well as dysuria. - Related Data Home Medications Medication Instructions Recorded Confirmed Warfarin [Coumadin] 5 mg PO HS 03/22/19 12/23/21 Ascorbic Acid [Vitamin C] 500 mg PO DAILY 12/23/21 12/23/21 Levothyroxine Sodium 125 mcg PO DAILY 12/23/21 12/23/21 Metoprolol Tartrate [Lopressor] 25 mg PO BID 12/23/21 12/23/21 [place]-3/Dha/Epa/Fish Oil [Fish Oil 1 cap PO DAILY 12/23/21 12/23/21 1,000 mg Softgel] Previous Rx's Medication Instructions Recorded Chlorthalidone [Hygroton] 25 mg PO DAILY tab 09/11/20 Cephalexin [Keflex] 500 mg PO Q8HR 10 Days #30 cap 12/23/21 Allergies Allergy/AdvReac Type Severity Reaction Status Date / Time lisinopril Allergy Rash/Hives Verified 12/23/21 15:49 losartan Allergy Rash/Hives Verified 12/23/21 15:49 Review of Systems ROS Statement: Those systems with pertinent positive or pertinent negative responses have been documented in the HPI. ROS Other: All systems not noted in ROS Statement are negative. Past Medical History Past Medical History: Atrial Fibrillation, Cancer, Hypertension, Thyroid Disorder Additional Past Medical History / Comment(s): states has "lump in stomach" endometrial cancer 2017; neuropathy feet, states pre diabetic History of Any Multi-Drug Resistant Organisms: None Reported Past Surgical History: Section, Cholecystectomy, Hysterectomy, Joint Replacement Additional Past Surgical History / Comment(s): R Hip replaced, cardioversion, Past Anesthesia/Blood Transfusion Reactions: No Reported Reaction Past Psychological History: Anxiety, Depression Smoking Status: Former smoker Past Alcohol Use History: None Reported Past Drug Use History: None Reported - Past Family History Mother Family Medical History: No Reported History General Exam Limitations: no limitations General appearance: alert, in no apparent distress Head exam: Present: atraumatic, normocephalic Eye exam: Present: normal appearance, PERRL ENT exam: Present: normal exam Neck exam: Present: normal inspection. Absent: tenderness, meningismus Respiratory exam: Present: normal lung sounds bilaterally. Absent: respiratory distress, wheezes Cardiovascular Exam: Present: regular rate, normal rhythm GI/Abdominal exam: Present: soft. Absent: distended, tenderness Extremities exam: Present: normal inspection Neurological exam: Present: alert, oriented X3, CN II-XII intact. Absent: motor sensory deficit Psychiatric exam: Present: normal affect, normal mood Skin exam: Present: warm, dry, intact. Absent: cyanosis, diaphoretic Course Vital Signs 12/23/21 12:23 Temperature 98.1 F Pulse Rate 94 Respiratory 22 Rate Blood Pressure 147/84 O2 Sat by Pulse 98 Oximetry Medical Decision Making - Medical Decision Making 81-year-old female with dysuria, urinary frequency. No fever. No vomiting. No abdominal pain. Urinalysis does reveal 104 red cells, 9 white cells, this may reflect hemorrhagic cystitis. Culture pending. Patient started on antibiotics. She should follow-up with her primary care physician. - Lab Data Lab Results 12/23/21 Range/Units 15:08 Urine Color Yellow Urine Appearance Clear (Clear) Urine pH 7.5 (5.0-8.0) Ur Specific [place] 1.015 (1.001-1.035) Urine Protein 1+ H (Negative) Urine Glucose (UA) Negative (Negative) Urine Ketones Negative (Negative) Urine Blood Moderate H (Negative) Urine Nitrite Negative (Negative) Urine Bilirubin Negative (Negative) Urine Urobilinogen <2.0 (<2.0) mg/dL Ur Leukocyte Esterase Moderate H (Negative) Urine RBC 104 H (0-5) /hpf Urine WBC 9 H (0-5) /hpf Ur Squamous Epith Cells 1 (0-4) /hpf Amorphous Sediment Rare H (None) /hpf Urine Mucus Rare H (None) /hpf Disposition Clinical Impression: Cystitis Disposition: HOME SELF-CARE Condition: Fair Instructions (If sedation given, give patient instructions): Urinary Tract Infection in Women (ED) Prescriptions: Cephalexin [Keflex] 500 mg PO Q8HR 10 Days #30 cap Is patient prescribed a controlled substance at d/c from ED?: No Referrals: Lucio Jenkins DO [Primary Care Provider] - 1-2 days Time of Disposition: 15:53
[2021-12-23 16:11] VITALS: BP 151/91; PULSE 86; RESP 15
== END 2021-12-23 16:11 | disposition home or self-care (01) ==
LOC: EC 11:35
DX: N30.90 Cystitis, unspecified without hematuria (principal); I10 Essential (primary) hypertension; I48.91 Unspecified atrial fibrillation; E03.9 Hypothyroidism, unspecified; F41.9 Anxiety disorder, unspecified; F32.A Depression, unspecified; Z87.891 Personal history of nicotine dependence; Z79.890 Hormone replacement therapy; Z79.891 Long term (current) use of opiate analgesic; Z79.899 Other long term (current) drug therapy; Z88.8 Allergy status to other drugs, medicaments and biological substances
CPT/HCPCS: 81001; 99283

== ENCOUNTER → 2022-07-21 | Outpatient (CLI) | payer MEDICARE, BC ==
--- NOTE | 2022-07-22 08:18 | US ---
EXAMINATION TYPE: US venous doppler duplex LE DATE OF EXAM: 07/21/2022 4:14 PM COMPARISON: NONE CLINICAL INDICATION: Female, 82 years old with history of M79.89 SOFT TISSUE DISORDER; edema bilatera l legs for 4 weeks. Patient on blood thinner, AFIB SIDE PERFORMED: bilateral TECHNIQUE: The lower extremity deep venous system is examined utilizing real time linear array sonog kamron with graded compression, doppler sonography and color-flow sonography. VESSELS IMAGED: Common Femoral Vein Deep Femoral Vein Greater Saphenous Vein * Femoral Vein Popliteal Vein Small Saphenous Vein * Proximal Calf Veins (* superficial vessels) Right Leg: No evidence of DVT as visualized. Multiple lymph nodes right groin, largest = 1.6cm Left Leg: No evidence of DVT as visualized IMPRESSION: 1. No evidence for DVT within the bilateral lower extremities imaged from the groin to the upper calv es. 2. A few prominent and borderline sized right inguinal lymph nodes, probably reactive/post inflammato ry. These can be followed clinically. If any persistent growth or suspicious clinical features develo p, the area should be rescanned.
== END | disposition home or self-care (01) ==
LOC: RADUSWWP 15:43
PROVIDERS: ATTEND Family Medicine
DX: M79.89 Other specified soft tissue disorders (principal); I48.91 Unspecified atrial fibrillation; R59.0 Localized enlarged lymph nodes
CPT/HCPCS: 93970

== ENCOUNTER → 2022-08-22 | Outpatient (CLI) | payer MEDICARE, BC ==
--- NOTE | 2022-08-22 12:45 | US ---
EXAMINATION TYPE: US groin RT DATE OF EXAM: 08/22/2022 COMPARISON: US 2022 CLINICAL INDICATION: Female, 82 years old with history of R59.0 LOCALIZED ENLARGED LYMPH NODES; Enlar ged lymph nodes seen on previous BLE ultrasound Right groin: multiple lymph nodes seen with largest measuring 2.1 x 0.7 x 2.7cm Left groin for comparison: multiple lymph nodes seen with largest measuring 3.0 x 1.1 x 0.8cm IMPRESSION: Bilateral inguinal lymph nodes are mildly prominent and could be reactive in nature. Cli nical correlation is advised.
== END | disposition home or self-care (01) ==
LOC: RADUSWWP 12:12
PROVIDERS: ATTEND Family Medicine
DX: R59.0 Localized enlarged lymph nodes (principal)

== ENCOUNTER 2022-12-29 13:15 | Emergency (ER) | payer MEDICARE, BC ==
--- NOTE | 2022-12-29 13:33 | ED ---
General Adult HPI - General Source: patient, family, RN notes reviewed Mode of arrival: wheelchair Limitations: no limitations <Jordan Corado - Last Filed: 12/29/22 13:30> <Jessica Chance - Last Filed: 01/12/23 09:06> - General Stated complaint: left swollen leg Time Seen by Provider: 12/29/22 13:30 - History of Present Illness Initial comments: 82-year-old female presents emergency Department which from her left leg pain, swelling. Patient is on Coumadin for A. fib and presents for left leg swelling and pain states she has pain at top of her thigh. She states it makes it very difficult to walk. (Jordan Corado) 82 year old female presents to ED with left leg pain. She is on coumadin for afib. Denies any trauma but noticed large bruise to her posterior left thigh. Coumadin recently checked and was normal. Denies any numbness or tingling in her leg. No headache, abd pain (Jessica Chance) - Related Data Home Medications Medication Instructions Recorded Confirmed Warfarin [Coumadin] 5 mg PO HS 03/22/19 12/23/21 Ascorbic Acid [Vitamin C] 500 mg PO DAILY 12/23/21 12/23/21 Levothyroxine Sodium 125 mcg PO DAILY 12/23/21 12/23/21 Metoprolol Tartrate [Lopressor] 25 mg PO BID 12/23/21 12/23/21 [place]-3/Dha/Epa/Fish Oil [Fish Oil 1 cap PO DAILY 12/23/21 12/23/21 1,000 mg Softgel] Previous Rx's Medication Instructions Recorded Chlorthalidone [Hygroton] 25 mg PO DAILY tab 09/11/20 Cephalexin [Keflex] 500 mg PO Q8HR 10 Days #30 cap 12/23/21 Allergies Allergy/AdvReac Type Severity Reaction Status Date / Time lisinopril Allergy Rash/Hives Verified 12/29/22 13:31 losartan Allergy Rash/Hives Verified 12/29/22 13:31 Review of Systems ROS Other: All systems not noted in ROS Statement are negative. <Jordan Corado - Last Filed: 12/29/22 13:30> ROS Other: All systems not noted in ROS Statement are negative. <Jessica Chance - Last Filed: 01/12/23 09:06> ROS Statement: Those systems with pertinent positive or pertinent negative responses have been documented in the HPI. Past Medical History Past Medical History: Atrial Fibrillation, Cancer, Hypertension, Thyroid Disorder Additional Past Medical History / Comment(s): states has "lump in stomach" endometrial cancer 2017; neuropathy feet, states pre diabetic History of Any Multi-Drug Resistant Organisms: None Reported Past Surgical History: Section, Cholecystectomy, Hysterectomy, Joint Replacement Additional Past Surgical History / Comment(s): R Hip replaced, cardioversion, Past Anesthesia/Blood Transfusion Reactions: No Reported Reaction Past Psychological History: Anxiety, Depression Smoking Status: Former smoker Past Alcohol Use History: None Reported Past Drug Use History: None Reported - Past Family History Mother Family Medical History: No Reported History <Jordan Corado - Last Filed: 12/29/22 13:30> General Exam <Jordan Corado - Last Filed: 12/29/22 13:30> General appearance: alert, in no apparent distress Head exam: Present: atraumatic, normocephalic, normal inspection Eye exam: Present: normal appearance, PERRL, EOMI. Absent: scleral icterus, conjunctival injection, periorbital swelling ENT exam: Present: normal exam, mucous membranes moist Neck exam: Present: normal inspection. Absent: tenderness, meningismus, lymphadenopathy Respiratory exam: Present: normal lung sounds bilaterally. Absent: respiratory distress, wheezes, rales, rhonchi, stridor Cardiovascular Exam: Present: regular rate, normal rhythm, normal heart sounds. Absent: systolic murmur, diastolic murmur, rubs, gallop, clicks GI/Abdominal exam: Present: soft, normal bowel sounds. Absent: distended, tenderness, guarding, rebound, rigid Extremities exam: Present: full ROM, tenderness (to posterior left thigh where there is a large subcutanous hematoma measuring approximately 35 x 15 cm. compartments are soft. 2+ DP and PT pulses), normal capillary refill. Absent: pedal edema, joint swelling, calf tenderness Back exam: Present: normal inspection Neurological exam: Present: alert, oriented X3, CN II-XII intact Psychiatric exam: Present: normal affect, normal mood Skin exam: Present: warm, dry, intact, normal color. Absent: rash <Jessica Chance - Last Filed: 01/12/23 09:06> - General Exam Comments Initial Comments: Visual Physical Exam Vital signs reviewed General: Well-appearing, nontoxic, no acute distress. Head: Normocephalic, atraumatic Eyes: PERRLA, EOMI ENT: Airway patent Chest: Nonlabored breathing Skin: No visual rash, normal skin tone Neuro: Alert and oriented 3 Musculoskeletal: No gross abnormalities (Jordan Corado) Course Vital Signs 12/29/22 12/29/22 13:29 16:04 Temperature 98 F 98.1 F Pulse Rate 81 88 Respiratory 16 18 Rate Blood Pressure 94/59 125/84 O2 Sat by Pulse 100 94 L Oximetry Medical Decision Making <Jordan Corado - Last Filed: 12/29/22 13:30> - Lab Data Result diagrams: 12/29/22 14:15 12/29/22 14:15 <Jessica Chance - Last Filed: 01/12/23 09:06> - Medical Decision Making I performed a quick note portion of this chart signed Jordan Corado PA-C (Jordan Corado) Was pt. sent in by a medical professional or institution (ARLINE Irizarry, TENNIS DIRECTOR, urgent care, hospital, or shelter...) When possible be specific @ -no Did you speak to anyone other than the patient for history (EMS, parent, family, police, friend...)? What history was obtained from this source @ -No Did you review nursing and triage notes (agree or disagree)? Why? @ -I reviewed and agree with nursing and triage notes Were old charts reviewed (outside hosp., previous admission, EMS record, old EKG, old radiological studies, urgent care reports/EKG's, shelter records)? Report findings @ -No Differential Diagnosis (chest pain, altered mental status, abdominal pain women, abdominal pain men, vaginal bleeding, weakness, fever, dyspnea, syncope, headache, dizziness, GI bleed, back pain, seizure, CVA, palpatations, mental health, musculoskeletal)? @ -arterial occlusion, DVT, claudication, electrolyte abnormality, hematoma, supratheraputic inr, compartment syndrome EKG interpreted by me (3pts min.). @ -Not done X-rays interpreted by me (1pt min.). @ -None done CT interpreted by me (1pt min.). @ -None done U/S interpreted by me (1pt. min.). @ -negative for DVT What testing was considered but not performed or refused? (CT, X-rays, U/S, labs)? Why? @ -none What meds were considered but not given or refused? Why? @ -None Did you discuss the management of the patient with other professionals (professionals i.e. Dr., PA, TENNIS DIRECTOR, lab, RT, psych nurse, social science research assistant, talent acquisition program manager, teacher, development officer, vocational case manager)? Give summary @ -No Was smoking cessation discussed for >3mins.? @ -No Was critical care preformed (if so, how long)? @ -No Were there social determinants of health that impacted care today? How? (Homelessness, low income, unemployed, alcoholism, drug addiction, transportation, low edu. Level, literacy, decrease access to med. care, long-term, rehab)? @ -No Was there de-escalation of care discussed even if they declined (Discuss DNR or withdrawal of care, Hospice)? DNR status @ -No What co-morbidities impacted this encounter? (DM, HTN, Smoking, COPD, CAD, Cancer, CVA, ARF, Chemo, Hep., AIDS, mental health diagnosis, sleep apnea, morbid obesity)? @ -afib on coumadin Was patient admitted / discharged? Hospital course, mention meds given and route, prescriptions, significant lab abnormalities, going to OR and other pertinent info. @ -Discharged, us negative. Pt will follow up with PCP for further workup of her symptoms. She is to not take her coumadin tonight and follow up with pcp for further management of her high coumadin level Undiagnosed new problem with uncertain prognosis? @ -yes Drug Therapy requiring intensive monitoring for toxicity (Heparin, Nitro, Insulin, Cardizem)? @ -No Were any procedures done? @ -No Diagnosis/symptom? @ -acute left leg pain, acute subcutanous hematoma, supratheraputic inr, hx afib Acute, or Chronic, or Acute on Chronic? @ -acute Uncomplicated (without systemic symptoms) or Complicated (systemic symptoms)? @ -complicated Side effects of treatment? @ -No Exacerbation, Progression, or Severe Exacerbation? @ -No Poses a threat to life or bodily function? How? (Chest pain, [place], [place], pneumonia, PE, COPD, DKA, ARF, appy, cholecystitis, CVA, Diverticulitis, Homicidal, Suicidal, threat to staff... and all critical care pts) @ -Low likelihood (Jessica Chance) - Lab Data Lab Results 12/29/22 12/29/22 12/29/22 Range/Units 14:15 14:15 14:15 WBC 7.1 (3.8-10.6) k/uL RBC 3.49 L (3.80-5.40) m/uL Hgb 10.9 L (11.4-16.0) gm/dL Hct 32.8 L (34.0-46.0) % MCV 94.1 (80.0-100.0) fL MCH 31.4 (25.0-35.0) pg MCHC 33.3 (31.0-37.0) g/dL RDW 13.3 (11.5-15.5) % Plt Count 262 (150-450) k/uL MPV 7.9 Neutrophils % 80 % Lymphocytes % 12 % Monocytes % 7 % Eosinophils % 1 % Basophils % 0 % Neutrophils # 5.7 (1.3-7.7) k/uL Lymphocytes # 0.8 L (1.0-4.8) k/uL Monocytes # 0.5 (0-1.0) k/uL Eosinophils # 0.1 (0-0.7) k/uL Basophils # 0.0 (0-0.2) k/uL PT 43.9 H (10.0-12.5) sec INR 4.5 H (<1.2) APTT 43.2 H (22.0-30.0) sec Sodium 135 L (137-145) mmol/L Potassium 3.5 (3.5-5.1) mmol/L Chloride 98 (98-107) mmol/L Carbon Dioxide 29 (22-30) mmol/L Anion Gap 8 mmol/L BUN 44 H (7-17) mg/dL Creatinine 1.11 H (0.52-1.04) mg/dL Est GFR (CKD-EPI)AfAm 53 (>60 ml/min/1.73 sqM) Est GFR (CKD-EPI)NonAf 46 (>60 ml/min/1.73 sqM) Glucose 135 H (74-99) mg/dL Calcium 9.1 (8.4-10.2) mg/dL Total Bilirubin 1.1 (0.2-1.3) mg/dL AST 31 (14-36) U/L ALT 18 (4-34) U/L Alkaline Phosphatase 55 (38-126) U/L Total Protein 6.4 (6.3-8.2) g/dL Albumin 3.3 L (3.5-5.0) g/dL Disposition <Jordan Corado - Last Filed: 12/29/22 13:30> Is patient prescribed a controlled substance at d/c from ED?: No Time of Disposition: 15:45 <Jessica Chance - Last Filed: 01/12/23 09:06> Clinical Impression: Subcutaneous hematoma, Elevated INR Disposition: HOME SELF-CARE Condition: Stable Instructions (If sedation given, give patient instructions): Elevated INR (ED) Additional Instructions: Skip your Coumadin dose for tonight and tomorrow. Restart on Thursday. See your manager of tires sales on or Thursday for INR recheck. Keep your leg iced and elevated. Return for any new or worsening symptoms Referrals: Lucio Jenkins DO [Primary Care Provider] - 1-2 days
--- NOTE | 2022-12-29 14:36 | US ---
EXAMINATION TYPE: US venous doppler duplex LE LT DATE OF EXAM: 12/29/2022 2:20 PM COMPARISON: Bilateral lower extremity venous ultrasound 07/21/2022 CLINICAL INDICATION: Female, 82 years old with history of rule out DVT; left leg swelling. Left inne r thigh bruising. Patient states no injury. On coumadin. SIDE PERFORMED: Left TECHNIQUE: The lower extremity deep venous system is examined utilizing real time linear array sonog kamron with graded compression, doppler sonography and color-flow sonography. VESSELS IMAGED: Common Femoral Vein Deep Femoral Vein Greater Saphenous Vein * Femoral Vein Popliteal Vein Small Saphenous Vein * Proximal Calf Veins (* superficial vessels) Grayscale, color doppler, spectral doppler imaging performed of the deep veins of the left lower extr emity. There is normal flow, compressibility, vascular waveforms. Left Leg: Negative for DVT IMPRESSION: No deep venous thrombosis of the left lower extremity.
[2022-12-29 14:51] LABS: Basophils % (A) 0 %; Eosinophils # (A) 0.1 k/uL (0-0.7); Eosinophils % (A) 1 %; HCT 32.8 % (34.0-46.0); HGB 10.9 gm/dL (11.4-16.0); Lymphocytes # (A) 0.8 k/uL (1.0-4.8); Lymphocytes % (A) 12 %; MCH 31.4 pg (25.0-35.0); MCHC 33.3 g/dL (31.0-37.0); MCV 94.1 fL (80.0-100.0); Mean Platelet Volume 7.9; Monocytes # (A) 0.5 k/uL (0-1.0); Monocytes % (A) 7 %; Neutrophils # (A) 5.7 k/uL (1.3-7.7); Neutrophils % (A) 80 %; Platelet Count 262 k/uL (150-450); RBC 3.49 m/uL (3.80-5.40); RDW 13.3 % (11.5-15.5); WBC 7.1 k/uL (3.8-10.6)
[2022-12-29 14:59] LABS: INR 4.5 (<1.2); Partial Thromboplastin Time 43.2 sec (22.0-30.0); Prothrombin Time 43.9 sec (10.0-12.5)
[2022-12-29 15:08] LABS: ALT 18 U/L (4-34); AST 31 U/L (14-36); African American GFR (CKD) 53 (>60 ml/min/1.73 sqM); Albumin 3.3 g/dL (3.5-5.0); Alkaline Phosphatase 55 U/L (38-126); Anion Gap 8 mmol/L; Blood Urea Nitrogen 44 mg/dL (7-17); Calcium 9.1 mg/dL (8.4-10.2); Carbon Dioxide 29 mmol/L (22-30); Chloride 98 mmol/L (98-107); Glucose 135 mg/dL (74-99); Non-African American GFR(CKD) 46 (>60 ml/min/1.73 sqM); Potassium 3.5 mmol/L (3.5-5.1); Sodium 135 mmol/L (137-145); Total Bilirubin 1.1 mg/dL (0.2-1.3); Total Protein 6.4 g/dL (6.3-8.2)
[2022-12-29] MEDS ORDERED: CYCLOBENZAPRINE 10MG STARTER 3 TAB BTL PO STA (16:09)
[2022-12-29 16:19] VITALS: BP 125/84; PULSE 88; RESP 18; TEMP 98.1
== END 2022-12-29 16:33 | disposition home or self-care (01) ==
LOC: EC 13:15
DX: S70.12XA Contusion of left thigh, initial encounter (principal); R79.1 Abnormal coagulation profile; I10 Essential (primary) hypertension; I48.91 Unspecified atrial fibrillation; E07.9 Disorder of thyroid, unspecified; Z86.59 Personal history of other mental and behavioral disorders; Z87.891 Personal history of nicotine dependence; Z79.890 Hormone replacement therapy; Z79.01 Long term (current) use of anticoagulants; Z88.8 Allergy status to other drugs, medicaments and biological substances; X58.XXXA Exposure to other specified factors, initial encounter
CPT/HCPCS: 36415; 80053; 85025; 85610; 85730; 99284

== ENCOUNTER 2023-06-04 13:06 | Emergency (ER) | payer MEDICARE, BC ==
--- NOTE | 2023-06-04 13:16 | ED ---
Fall HPI - General Chief Complaint: Fall Stated Complaint: Fall, back pain, constipation Time Seen by Provider: 06/04/23 13:16 Source: patient, RN notes reviewed Mode of arrival: wheelchair - History of Present Illness Initial Comments: 83-year-old female with history of A-fib on warfarin presents emergency department chief complaint of lumbar back and left hip pain. Patient states about a week ago she fell backwards while using her walker from tripping, she denies any symptoms of lightheadedness, dizziness or fatigue before the fall. Patient denies loss of consciousness, endorses hitting her head, states that she has had some stiffness in her lower left lumbar back radiating down her left leg since the fall. Patient denies headaches, dizziness, lightheadedness, abdominal pain, dysuria. Patient also endorses complaints of constipation, she has a rectal prolapse, and states she has been unable to have a complete bowel movement over the past 4 days. Denies abdominal pain, nausea, parasthesias. - Related Data Home Medications Medication Instructions Recorded Confirmed Warfarin [Coumadin] 5 mg PO HS 03/22/19 12/23/21 Ascorbic Acid [Vitamin C] 500 mg PO DAILY 12/23/21 12/23/21 Levothyroxine Sodium 125 mcg PO DAILY 12/23/21 12/23/21 Metoprolol Tartrate [Lopressor] 25 mg PO BID 12/23/21 12/23/21 [place]-3/Dha/Epa/Fish Oil [Fish Oil 1 cap PO DAILY 12/23/21 12/23/21 1,000 mg Softgel] Previous Rx's Medication Instructions Recorded Chlorthalidone [Hygroton] 25 mg PO DAILY tab 09/11/20 Cephalexin [Keflex] 500 mg PO Q8HR 10 Days #30 cap 12/23/21 Cyclobenzaprine [Flexeril] 5 mg PO TID PRN #15 tablet 06/04/23 Allergies Allergy/AdvReac Type Severity Reaction Status Date / Time lisinopril Allergy Rash/Hives Verified 06/04/23 14:56 losartan Allergy Rash/Hives Verified 06/04/23 14:56 Review of Systems ROS Statement: Those systems with pertinent positive or pertinent negative responses have been documented in the HPI. ROS Other: All systems not noted in ROS Statement are negative. Past Medical History Past Medical History: Atrial Fibrillation, Cancer, Hypertension, Thyroid Disorder Additional Past Medical History / Comment(s): states has "lump in stomach" endometrial cancer 2017; neuropathy feet, states pre diabetic History of Any Multi-Drug Resistant Organisms: None Reported Past Surgical History: Section, Cholecystectomy, Hysterectomy, Joint Replacement Additional Past Surgical History / Comment(s): R Hip replaced, cardioversion, Past Anesthesia/Blood Transfusion Reactions: No Reported Reaction Past Psychological History: Anxiety, Depression Smoking Status: Former smoker Past Alcohol Use History: None Reported Past Drug Use History: None Reported - Past Family History Mother Family Medical History: No Reported History General Exam Limitations: no limitations General appearance: alert, in no apparent distress Head exam: Present: atraumatic, normocephalic, normal inspection Eye exam: Present: normal appearance, PERRL, EOMI. Absent: scleral icterus, conjunctival injection, periorbital swelling ENT exam: Present: normal exam, mucous membranes moist Neck exam: Present: normal inspection. Absent: tenderness, meningismus, lymphadenopathy Respiratory exam: Present: normal lung sounds bilaterally. Absent: respiratory distress, wheezes, rales, rhonchi, stridor Cardiovascular Exam: Present: regular rate, normal rhythm, normal heart sounds. Absent: systolic murmur, diastolic murmur, rubs, gallop, clicks GI/Abdominal exam: Present: soft, normal bowel sounds. Absent: distended, tenderness, guarding, rebound, rigid Back exam: Present: normal inspection, tenderness (to palpation over the lumbar region, most notable over the left), paraspinal tenderness (lumbar). Absent: CVA tenderness (R), CVA tenderness (L), muscle spasm Neurological exam: Present: alert, oriented X3, CN II-XII intact Psychiatric exam: Present: normal affect, normal mood Skin exam: Present: warm, dry, intact, normal color. Absent: rash Course Vital Signs 06/04/23 13:09 Temperature 98.2 F Pulse Rate 75 Respiratory 18 Rate Blood Pressure 138/95 O2 Sat by Pulse 97 Oximetry Medical Decision Making - Medical Decision Making Was pt. sent in by a medical professional or institution (, PA, SPINNER OPEN END, urgent care, hospital, or senior care...) When possible be specific @ -No Did you speak to anyone other than the patient for history (EMS, parent, family, police, friend...)? What history was obtained from this source @ -No Did you review nursing and triage notes (agree or disagree)? Why? @ -I reviewed and agree with nursing and triage notes Were old charts reviewed (outside hosp., previous admission, EMS record, old EKG, old radiological studies, urgent care reports/EKG's, senior care records)? Report findings @ reviewed previous emergency department visits. Patient has had frequent urinary tract infections requiring antibiotics. Differential Diagnosis (chest pain, altered mental status, abdominal pain women, abdominal pain men, vaginal bleeding, weakness, fever, dyspnea, syncope, headache, dizziness, GI bleed, back pain, seizure, CVA, palpatations, mental health, musculoskeletal)? @ -Differential Musculoskeletal Muscular strain, contusion, ligament sprain, fracture, arthritis, septic arthritis, bursitis, cellulitis, muscle spasm, nerve compression, DVT, arterial occlusion, herpes zoster, electrolyte abnormality, tumor.... This is not meant to be in all inclusive list EKG interpreted by me (3pts min.). @ -As above X-rays interpreted by me (1pt min.). @ -KUB, lumbar spine/left hip and pelvic girdle revealed Moderate degenerative changes with spondylosis and degenerative disks with some increasing convexity of the lumbar spine, no acute process of the left hip and degenerative joint changes seen, non-specific abdomen with no significant fecal retention CT interpreted by me (1pt min.). @ -None done U/S interpreted by me (1pt. min.). @ -None done What testing was considered but not performed or refused? (CT, X-rays, U/S, labs)? Why? @ -None What meds were considered but not given or refused? Why? @ -None Did you discuss the management of the patient with other professionals (professionals i.e. , PA, SPINNER OPEN [employer], lab, RT, psych nurse, social welfare administrator, director broadcast, teacher, forest fire officer, pillowcase turner)? Give summary @ -No Was smoking cessation discussed for >3mins.? @ -No Was critical care preformed (if so, how long)? @ -No Were there social determinants of health that impacted care today? How? (Homelessness, low income, unemployed, alcoholism, drug addiction, transportation, low edu. Level, literacy, decrease access to med. care, correction, rehab)? @ -No Was there de-escalation of care discussed even if they declined (Discuss DNR or withdrawal of care, Hospice)? DNR status @ -No What co-morbidities impacted this encounter? (DM, HTN, Smoking, COPD, CAD, Cancer, CVA, ARF, Chemo, Hep., AIDS, mental health diagnosis, sleep apnea, morbid obesity)? @ -AFib, HTN Was patient admitted / discharged? Hospital course, mention meds given and route, prescriptions, significant lab abnormalities, going to OR and other pertinent info. @ -83-year-old female chief complaint back and left hip pain after fall last week. patient experienced minor head trauma that happened a week ago, Patient has no neurological deficits and negative loss of consciousness at time of fall, therefor CT brain was deferred at this time. She was given a muscle relaxer for relief in the ED and states that her symptoms have improved after. Urinalysis revealed moderate blood blood cells and white blood cells present positive for large leukocyte esterase. Bladder scan revealed less than 200 cc. Patient's bladder 20 minutes. At this time urine will be sent for culture to evaluate this acute infection and antibiotics will be prescribed as needed. Patient will be discharged with as needed muscle relaxer due to pain from fall. I discussed this case with, Dr. Enriquez, is agreeable with plan and for discharge Undiagnosed new problem with uncertain prognosis? @ -No Drug Therapy requiring intensive monitoring for toxicity (Heparin, Nitro, Insulin, Cardizem)? @ -No Were any procedures done? @ -No Diagnosis/symptom? @ -[back pain, hip pain, fall, urinary retention Acute, or Chronic, or Acute on Chronic? @ -acute Uncomplicated (without systemic symptoms) or Complicated (systemic symptoms)? @ -uncomplicated Side effects of treatment? @ -No Exacerbation, Progression, or Severe Exacerbation? @ -No Poses a threat to life or bodily function? How? (Chest pain, [place], [place], pneumonia, PE, COPD, DKA, ARF, appy, cholecystitis, CVA, Diverticulitis, Homicidal, Suicidal, threat to staff... and all critical care pts) @ -No - Lab Data Lab Results 06/04/23 Range/Units 14:02 Urine Color Yellow Urine Appearance Cloudy H (Clear) Urine pH 6.0 (5.0-8.0) Ur Specific [place] 1.020 (1.001-1.035) Urine Protein Trace H (Negative) Urine Glucose (UA) Negative (Negative) Urine Ketones Negative (Negative) Urine Blood Moderate H (Negative) Urine Nitrite Negative (Negative) Urine Bilirubin Negative (Negative) Urine Urobilinogen 2.0 (<2.0) mg/dL Ur Leukocyte Esterase Large H (Negative) Urine RBC 48 H (0-5) /hpf Urine WBC 62 H (0-5) /hpf Ur Squamous Epith Cells 1 (0-4) /hpf Hyaline Casts 3 H (0-2) /lpf Urine Mucus Rare H (None) /hpf Disposition Clinical Impression: Back pain, Hip pain, left Narrative: Please return to the Emergency Department if symptoms worsen or any other concerns. Disposition: HOME SELF-CARE Condition: Good Instructions (If sedation given, give patient instructions): Fall Prevention for Older Adults (ED) Prescriptions: Cyclobenzaprine [Flexeril] 5 mg PO TID PRN #15 tablet PRN Reason: Muscle Spasm Is patient prescribed a controlled substance at d/c from ED?: No Referrals: Lucio Jenkins DO [Primary Care Provider] - 1-2 days Time of Disposition: 14:55
[2023-06-04] MEDS: ORPHENADRINE 30 MG/ML 2 ML VIAL IM STA (13:33)
--- NOTE | 2023-06-04 14:08 | XR ---
EXAMINATION TYPE: XR lumbar spine 2 or 3V DATE OF EXAM: 06/04/2023 COMPARISON: 12/26/2017 HISTORY: Fall, back pain TECHNIQUE: Three-view lumbar spine FINDINGS: There is increasing scoliosis of the lumbar spine. There are 5 lumbar-type vertebral bodies . Pedicles are intact. There is loss of disc height to the lumbar spine. Vertebral body heights appea r preserved. IMPRESSION: 1. Moderate degenerative changes with spondylosis and degenerative disc changes lumbar spine 2. Some increasing right convexity scoliosis lumbar spine
--- NOTE | 2023-06-04 14:10 | XR ---
EXAMINATION TYPE: XR Hip LT and AP Pelvis DATE OF EXAM: 06/04/2023 COMPARISON: None HISTORY: Fall, pain TECHNIQUE: 2V left hip supplemented with AP pelvis FINDINGS: Left femoral head articulates with the acetabulum. Joint space is narrowed. No acute fractu res are evident. Right hip prosthesis is noted. Symphysis pubis and sacroiliac joints are normal IMPRESSION: 1. No acute osseous abnormality left hip. 2. Moderate degenerative joint changes left hip
--- NOTE | 2023-06-04 14:11 | XR ---
EXAMINATION TYPE: XR KUB DATE OF EXAM: 06/04/2023 COMPARISON: None HISTORY: Constipation TECHNIQUE: Abdomen is examined in frontal projection FINDINGS: Nonspecific bowel gas is within small bowel loops as well as colon. Mild fecal debris is in the ascending colon region. No mass effect is evident. Psoas margins faintly visualized appear tiffanie l. Organomegaly is not evident. Cholecystectomy clips are present. Right hip prosthesis is present. IMPRESSION: 1. Nonspecific abdomen. 2. No significant fecal retention
[2023-06-04 14:20] LABS: Appearance,Urine Cloudy (Clear); Bilirubin,Urine Negative (Negative); Blood,Urine Moderate (Negative); Color,Urine Yellow; Glucose,Urine (UA) Negative (Negative); Hyaline Casts,Urine 3 /lpf (0-2); Ketones,Urine Negative (Negative); Leukocyte Esterase,Urine Large (Negative); Mucus,Urine Rare /hpf; Nitrite,Urine Negative (Negative); Protein,Urine Trace (Negative); RBC,Urine 48 /hpf (0-5); Squamous Epithelial Cell,Urine 1 /hpf (0-4); WBC,Urine 62 /hpf (0-5)
[2023-06-04 14:21] VITALS: RESP 18
[2023-06-04 15:42] VITALS: BP 138/89; PULSE 80; TEMP 98
== END 2023-06-04 15:22 | disposition home or self-care (01) ==
LOC: EC 13:06
DX: M54.50 Low back pain, unspecified (principal); M25.552 Pain in left hip; R33.9 Retention of urine, unspecified; I10 Essential (primary) hypertension; I48.91 Unspecified atrial fibrillation; Z87.891 Personal history of nicotine dependence; Z79.899 Other long term (current) drug therapy; Z88.8 Allergy status to other drugs, medicaments and biological substances; W18.30XA Fall on same level, unspecified, initial encounter
CPT/HCPCS: 81001; 87086; 72100; 73502; 74018; 99284; 96372; J2360

== ENCOUNTER 2023-06-13 18:36 | Inpatient (IN) | payer MEDICARE, BC ==
--- NOTE | 2023-06-13 18:52 | ED ---
General Adult HPI - General Chief complaint: Weakness Stated complaint: weakness - pos stroke Time Seen by Provider: 06/13/23 18:38 Source: patient, EMS, RN notes reviewed Mode of arrival: EMS Limitations: no limitations - History of Present Illness Initial comments: Patient is an 83-year-old female presenting to the emergency department with weakness. Patient is a very poor historian and offers little history. Patient does have history of A-fib and is on Coumadin. Patient has had a couple of falls however is unable to state when this occurred. Family did notice some increased weakness last night. Family noticed that patient did have some left leg weakness. Patient does complain of right posterior headache. Patient is overall a very poor historian. - Related Data Home Medications Medication Instructions Recorded Confirmed Warfarin [Coumadin] 5 mg PO SUMOTUWETHSA 03/22/19 06/04/23 Levothyroxine Sodium 125 mcg PO DAILY 12/23/21 06/04/23 Metoprolol Tartrate [Lopressor] 25 mg PO BID 12/23/21 06/04/23 Warfarin [Coumadin] 2.5 mg PO FR 06/04/23 06/04/23 Previous Rx's Medication Instructions Recorded Chlorthalidone [Hygroton] 25 mg PO DAILY tab 09/11/20 Cyclobenzaprine [Flexeril] 5 mg PO TID PRN #15 tablet 06/04/23 Allergies Allergy/AdvReac Type Severity Reaction Status Date / Time lisinopril Allergy Rash/Hives Verified 06/13/23 18:50 losartan Allergy Rash/Hives Verified 06/13/23 18:50 Review of Systems ROS Statement: Those systems with pertinent positive or pertinent negative responses have been documented in the HPI. ROS Other: All systems not noted in ROS Statement are negative. Constitutional: Denies: fever Eyes: Denies: eye pain ENT: Denies: ear pain Respiratory: Denies: cough Cardiovascular: Denies: chest pain Endocrine: Denies: fatigue Gastrointestinal: Denies: abdominal pain Neurological: Reports: as per HPI, headache, weakness Past Medical History Past Medical History: Atrial Fibrillation, Cancer, Hypertension, Thyroid Disorder Additional Past Medical History / Comment(s): states has "lump in stomach" endometrial cancer 2017; neuropathy feet, states pre diabetic History of Any Multi-Drug Resistant Organisms: None Reported Past Surgical History: Section, Cholecystectomy, Hysterectomy, Joint Replacement Additional Past Surgical History / Comment(s): R Hip replaced, cardioversion, Past Anesthesia/Blood Transfusion Reactions: No Reported Reaction Past Psychological History: Anxiety, Depression Smoking Status: Former smoker Past Alcohol Use History: None Reported Past Drug Use History: None Reported - Past Family History Mother Family Medical History: No Reported History General Exam Limitations: no limitations General appearance: alert, in no apparent distress Head exam: Present: atraumatic Eye exam: Present: normal appearance, PERRL, EOMI ENT exam: Present: normal oropharynx Neck exam: Present: normal inspection Respiratory exam: Present: normal lung sounds bilaterally Cardiovascular Exam: Present: tachycardia, irregular rhythm GI/Abdominal exam: Present: soft. Absent: tenderness Extremities exam: Present: normal inspection Neurological exam: Present: alert, CN II-XII intact Expanded Neurological exam: Present: protecting the airway Patient oriented to: Present: person, place. Absent: time Cranial nerves: EOM's Intact: Normal, Facial Sensation: Normal Sensory exam: Upper Extremity Light Touch: Normal, Lower Extremity Light Touch: Normal Motor strength exam: RUE: 3, LUE: 3, RLE: 3, LLE: 2/1 Eye Response: (4) open spontaneously Motor Response: (6) obeys commands Verbal Response: (4) confused conversation Psychiatric exam: Present: normal affect, normal mood Skin exam: Present: normal color Course Vital Signs 06/13/23 06/13/23 06/13/23 18:40 19:49 20:00 Temperature 97.8 F 97.8 F Pulse Rate 114 H 110 H 105 H Respiratory 18 18 18 Rate Blood Pressure 93/64 101/60 98/67 O2 Sat by Pulse 100 98 96 Oximetry EKG Findings - EKG Results: EKG: interpreted by ERMD (Right bundle branch block. Inferior T wave inversion), normal axis EKG shows: tachycardia, atrial fibrillation Medical Decision Making - Medical Decision Making Patient is felt not to be a tPA candidate secondary to onset of symptoms greater than 4.5 hours. In addition patient is on Coumadin. Risks are felt to outweigh the benefit. Case was discussed with Dr. Sharma who agrees Was pt. sent in by a medical professional or institution (, PA, [employer], urgent care, hospital, or [facility]...) When possible be specific @ -No Did you speak to anyone other than the patient for history (EMS, parent, family, police, friend...)? What history was obtained from this source @ -Family later arrives and provides history confirming onset last night Did you review nursing and triage notes (agree or disagree)? Why? @ -I reviewed and agree with nursing and triage notes Were old charts reviewed (outside hosp., previous admission, EMS record, old EKG, old radiological studies, urgent care reports/EKG's, [facility] records)? Report findings @ -No old charts were reviewed Differential Diagnosis (chest pain, altered mental status, abdominal pain women, abdominal pain men, vaginal bleeding, weakness, fever, dyspnea, syncope, headache, dizziness, GI bleed, back pain, seizure, CVA, palpatations, mental health, musculoskeletal)? @ -Differential Weakness: Hypoglycemia, shock, sepsis, hyponatremia, anemia, infection, FL, ETOH, adverse medicine reaction, overdose, stroke, this is not meant to be an all-inclusive list. EKG interpreted by me (3pts min.). @ -As above X-rays interpreted by me (1pt min.). @ -Chest x-ray shows no acute process CT interpreted by me (1pt min.). @ -CT brain does not reveal acute abnormality U/S interpreted by me (1pt. min.). @ -None done What testing was considered but not performed or refused? (CT, X-rays, U/S, labs)? Why? @ -None What meds were considered but not given or refused? Why? @ -None Did you discuss the management of the patient with other professionals (professionals i.e. DrRaquel, PA, [employer], lab, RT, psych nurse, executive secretary social welfare, street engineer, teacher, equal employment opportunity officer, case worker)? Give summary @ -Case discussed with Dr. Sharma who agrees patient is not a tPA candidate. He is also made aware of CTA results. Nothing acute regarding that on his side. Case also discussed with practitioner Brandy Roger who will admit covering for Dr. Camara who admits for Dr. Jenkins Was smoking cessation discussed for >3mins.? @ -No Was critical care preformed (if so, how long)? @ -No Were there social determinants of health that impacted care today? How? (Homelessness, low income, unemployed, alcoholism, drug addiction, transportation, low edu. Level, literacy, decrease access to med. care, residential, rehab)? @ -No Was there de-escalation of care discussed even if they declined (Discuss DNR or withdrawal of care, Hospice)? DNR status @ -No What co-morbidities impacted this encounter? (DM, HTN, Smoking, COPD, CAD, Cancer, CVA, ARF, Chemo, Hep., AIDS, mental health diagnosis, sleep apnea, morbid obesity)? @ -Patient is on Coumadin for atrial fibrillation Was patient admitted / discharged? Hospital course, mention meds given and route, prescriptions, significant lab abnormalities, going to OR and other pertinent info. @ -Patient reevaluated and unchanged. Patient will be admitted. Admission orders written. Neurology will be placed on consult Undiagnosed new problem with uncertain prognosis? @ -No Drug Therapy requiring intensive monitoring for toxicity (Heparin, Nitro, Insul in, Cardizem)? @ -No Were any procedures done? @ -No Diagnosis/symptom? @ -CVA Acute, or Chronic, or Acute on Chronic? @ -Acute Uncomplicated (without systemic symptoms) or Complicated (systemic symptoms)? @ -Default Side effects of treatment? @ -No Exacerbation, Progression, or Severe Exacerbation? @ -No Poses a threat to life or bodily function? How? (Chest pain, USA, FL, pneumonia, PE, COPD, DKA, ARF, appy, cholecystitis, CVA, Diverticulitis, Homicidal, Suicidal, threat to staff... and all critical care pts) @ -No - Lab Data Result diagrams: 06/13/23 18:58 06/13/23 18:58 Lab Results 06/13/23 06/13/23 06/13/23 Range/Units 18:58 18:58 18:58 WBC 10.1 (3.8-10.6) k/uL RBC 3.94 (3.80-5.40) m/uL Hgb 12.0 (11.4-16.0) gm/dL Hct 36.4 (34.0-46.0) % MCV 92.4 (80.0-100.0) fL MCH 30.5 (25.0-35.0) pg MCHC 33.1 (31.0-37.0) g/dL RDW 13.9 (11.5-15.5) % Plt Count 191 (150-450) k/uL MPV 8.9 PT 54.8 H (10.0-12.5) sec INR 5.6 H* (<1.2) APTT 53.4 H (22.0-30.0) sec Sodium 128 L (137-145) mmol/L Potassium 3.1 L (3.5-5.1) mmol/L Chloride 96 L (98-107) mmol/L Carbon Dioxide 23 (22-30) mmol/L Anion Gap 9 mmol/L BUN 60 H (7-17) mg/dL Creatinine 2.20 H (0.52-1.04) mg/dL Est GFR (CKD-EPI)AfAm 23 (>60 ml/min/1.73 sqM) Est GFR (CKD-EPI)NonAf 20 (>60 ml/min/1.73 sqM) Glucose 119 H (74-99) mg/dL Calcium 8.4 (8.4-10.2) mg/dL Total Bilirubin 1.1 (0.2-1.3) mg/dL AST 20 (14-36) U/L ALT 13 (4-34) U/L Alkaline Phosphatase 105 (38-126) U/L Creatine Kinase 45 (30-135) U/L Total Protein 5.3 L (6.3-8.2) g/dL Albumin 2.5 L (3.5-5.0) g/dL Disposition Clinical Impression: CVA (cerebral vascular accident) Disposition: ADMITTED IP TO THIS HOSP Is patient prescribed a controlled substance at d/c from ED?: No Referrals: Lucio Jenkins DO [Primary Care Provider] - 1-2 days Time of Disposition: 20:11
--- NOTE | 2023-06-13 19:15 | CT ---
EXAMINATION TYPE: CT brain wo con CT DLP: 1076.1 mGycm, Automated exposure control for dose reduction was used. DATE OF EXAM: 06/13/2023 7:09 PM COMPARISON: 09/07/2020. CLINICAL INDICATION:Female, 83 years old with history of Neuro deficit, acute, stroke suspected, Code stroke. Left leg weakness. TECHNIQUE: Brain: Axial CT images of the brain were obtained with coronal and sagittal reformats created and rev iewed. Contrast used: None. Oral contrast used: None. FINDINGS: Brain: Extra-axial spaces: No abnormal extra-axial fluid collections. Ventricular system: Dilatation in proportion to cerebral atrophy. Cerebral parenchyma: Cerebral atrophy. No acute intraparenchymal hemorrhage or mass effect. The hoyos -white junction is well differentiated. Scattered hypoattenuating areas are seen within the white mat ter. Cerebellum: Unremarkable. Mass effect: No evidence of midline shift. Intracranial vasculature: Atherosclerotic calcifications of the intracranial vessels. Soft tissues: Normal. Calvarium/osseous structures: No depressed skull fracture. Paranasal sinuses and mastoid air cells: Mild scattered paranasal sinus disease. Visualized orbits: Orbital contents are intact. IMPRESSION: 1. No acute intracranial process. 2. Nonspecific white matter changes, likely secondary to chronic small vessel ischemic disease.
[2023-06-13 19:32] LABS: Partial Thromboplastin Time 53.4 sec (22.0-30.0); Prothrombin Time 54.8 sec (10.0-12.5)
[2023-06-13 19:33] LABS: HCT 36.4 % (34.0-46.0); MCH 30.5 pg (25.0-35.0); MCHC 33.1 g/dL (31.0-37.0); MCV 92.4 fL (80.0-100.0); Mean Platelet Volume 8.9; Platelet Count 191 k/uL (150-450); RBC 3.94 m/uL (3.80-5.40); RDW 13.9 % (11.5-15.5); WBC 10.1 k/uL (3.8-10.6)
[2023-06-13 19:35] LABS: INR 5.6 (<1.2)
--- NOTE | 2023-06-13 19:36 | XR ---
EXAMINATION TYPE: XR chest 2V DATE OF EXAM: 06/13/2023 7:20 PM CLINICAL INDICATION:Female, 83 years old with history of altered mental status; [facility] COMPARISON: Chest radiographs from 10/05/2020 TECHNIQUE: XR chest 2V Frontal and lateral views of the chest. FINDINGS: Lungs/Pleura: There is no evidence of pleural effusion, focal consolidation, or pneumothorax. Pulmonary vascularity: Pulmonary vascular congestion. Heart/mediastinum: Cardiomediastinal silhouette is enlarged and stable. Musculoskeletal: Degenerative changes of the shoulder joints. Elevated acetabulum on the right IMPRESSION: 1. No acute cardiopulmonary disease/process. 2. Cardiomegaly, 3. Interstitial lung disease changes, 4. Suspected rotator cuff tear/full-thickness tear on the right.
--- NOTE | 2023-06-13 19:42 | CT ---
EXAMINATION TYPE: CT angio head neck CT DLP: 396.9 mGycm, Automated exposure control for dose reduction was used. DATE OF EXAM: 06/13/2023 7:24 PM COMPARISON: CT head same day. CLINICAL INDICATION:Female, 83 years old with history of Neuro deficit, acute, stroke suspected; PHH, Code stroke. Left leg weakness. TECHNIQUE: Axially acquired helical CT angiogram of the head and neck was obtained with contrast. Axi al images are supplemented with 3D reconstructions and MIP images which were post-processed at an in dependent workstation. NASCET criteria used. Contrast used:65cc mL of Isovue 370 with IV Contrast, Oral contrast used: None. FINDINGS: CTA HEAD: No evidence of acute intracranial hemorrhage, mass effect, or midline shift. The ventricles, sulci, a nd cisterns are unremarkable. Paranasal sinus mucosal thickening worse in the right maxillary sinus The visualized portions of the internal carotid arteries, middle cerebral arteries, anterior cerebral arteries, and posterior cerebral arteries are patent. Atherosclerosis of the intracranial internal c arotid arteries. The basilar and vertebral arteries are patent. CTA NECK: Right Carotid System: The common carotid artery and external carotid artery are patent. The carotid bifurcation demonstrate s no evidence of hemodynamically significant stenosis. The remaining portions of the internal carotid artery demonstrate normal size without significant narrowing. Left Carotid System: The common carotid artery and external carotid artery are patent. The carotid bifurcation demonstrate s no evidence of hemodynamically significant stenosis. The remaining portions of the internal carotid artery demonstrate normal size without significant narrowing. The right vertebral artery is occluded just after it enters the transverse process of the spine. Ther e is reconstitution at the level of C4. There is a three-vessel aortic arch. The origins of the great vessels are patent. No evidence of hemo dynamically significant stenosis. Upper thorax: No acute process visualized. IMPRESSION: 1. 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 The lef t vertebral artery is dominant and patent. 2. No evidence of dissection of the cervical internal carotid arteries or any evidence of significan t stenosis at the carotid bifurcations. 3. No evidence of intracranial high-grade stenosis or intracranial aneurysm.
[2023-06-13 19:56] LABS: ALT 13 U/L (4-34); AST 20 U/L (14-36); African American GFR (CKD) 23 (>60 ml/min/1.73 sqM); Albumin 2.5 g/dL (3.5-5.0); Alkaline Phosphatase 105 U/L (38-126); Anion Gap 9 mmol/L; Blood Urea Nitrogen 60 mg/dL (7-17); Calcium 8.4 mg/dL (8.4-10.2); Carbon Dioxide 23 mmol/L (22-30); Chloride 96 mmol/L (98-107); Creatine Kinase 45 U/L (30-135); Glucose 119 mg/dL (74-99); Non-African American GFR(CKD) 20 (>60 ml/min/1.73 sqM); Potassium 3.1 mmol/L (3.5-5.1); Sodium 128 mmol/L (137-145); Total Bilirubin 1.1 mg/dL (0.2-1.3); Total Protein 5.3 g/dL (6.3-8.2)
[2023-06-13] MEDS: SODIUM CHLORIDE 0.9% 1,000 ML IV SCH (20:28)
[2023-06-13] MEDS: ASPIRIN 325 MG TAB PO STA (20:28)
[2023-06-13] MEDS: POTASSIUM CHLORIDE ER 20 MEQ TAB.ER PO STA (20:28)
[2023-06-13 20:39] LABS: Band Neutrophils % 8 %; Neutrophils % (M) 88 %; Nucleated Red Blood Cells 0 /100 WBC (0-0); Total Cells Counted 100
[2023-06-13 20:42] LABS: Ovalocytes Present
[2023-06-14] MEDS: ACETAMINOPHEN TAB 325 MG TAB PO PRN (01:24)
[2023-06-14] MEDS: DILTIAZEM 125 MG in SODIUM CHLORIDE 0.9% 100 ML IV SCH (04:32)
[2023-06-14] MEDS: METOPROLOL TARTRATE 25 MG TAB PO SCH (09:10)
[2023-06-14] MEDS: ASPIRIN 325 MG TAB PO SCH (09:10)
--- NOTE | 2023-06-14 10:32 | P.HPIM ---
History of Present Illness this is a pleasant 83 years old female with multiple medical problems Patient somewhat poor historian and information obtained from the patient and son at bedside Patient was in this facility about 10 days ago after she fell and hurt her back, she was discharge with recommendation to use some ibuprofen 1 at home over the last 2 days as per son patient was given more slurred speech or weakness on the left side although she has also limitation on the right side because of her shoulder pain Now she is more awake and she can move her left side As per son patient got frequent urinary tract infection and patient has been complaining from increased frequency of urination with some dysuria She had 2 large bowel movement yesterday with no abdominal pain or vomiting She denies chest pain or dyspnea She is mildly tachycardic from 117 Creatinine is 2.2 which is slightly above baseline with sodium 128, potassium 3.0 and INR is elevated at 5.6 EKG showing atrial fibrillation's with RVR at 125 CT of the brain is negative for acute processes CTA of the head and neck she is negative for dissection or aneurysm however 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 fib Review of Systems Review of systems CONSTITUTIONAL: No fever, no malaise, no fatigue. HEENT: No recent visual problems or hearing problems. Denied any sore throat. CARDIOVASCULAR: No orthopnea, PND, no palpitations, no syncope. PULMONARY: No shortness of breath, no cough, no hemoptysis. GASTROINTESTINAL: No diarrhea, no nausea, no vomiting, no abdominal pain. Normoactive bowel sounds. NEUROLOGICAL: No headaches, no weakness, no numbness. HEMATOLOGICAL: Denies any bleeding or petechiae. GENITOURINARY: as above MUSCULOSKELETAL/RHEUMATOLOGICAL: Denies any joint pain, swelling, or any muscle pain. ENDOCRINE: Denies any polyuria or polydipsia. Past Medical History Past Medical History: Atrial Fibrillation, Cancer, Hypertension, Thyroid Disorder Additional Past Medical History / Comment(s): states has "lump in stomach" endometrial cancer 2017; neuropathy feet, states pre diabetic History of Any Multi-Drug Resistant Organisms: None Reported Past Surgical History: Section, Cholecystectomy, Hysterectomy, Joint Replacement Additional Past Surgical History / Comment(s): R Hip replaced, cardioversion, Past Anesthesia/Blood Transfusion Reactions: No Reported Reaction Past Psychological History: Anxiety, Depression Smoking Status: Former smoker Past Alcohol Use History: None Reported Past Drug Use History: None Reported - Past Family History Mother Family Medical History: No Reported History Medications and Allergies Home Medications Medication Instructions Recorded Confirmed Type Warfarin [Coumadin] 5 mg PO SUMOTUWETHSA 03/22/19 06/14/23 History Levothyroxine Sodium 125 mcg PO DAILY 12/23/21 06/14/23 History Metoprolol Tartrate [Lopressor] 25 mg PO BID 12/23/21 06/14/23 History Warfarin [Coumadin] 2.5 mg PO FR 06/04/23 06/14/23 History Chlorthalidone [Hygroton] 25 mg PO BID 06/14/23 06/14/23 History Ibuprofen [Motrin Ib] 200 mg PO BID 06/14/23 06/14/23 History Allergies Allergy/AdvReac Type Severity Reaction Status Date / Time lisinopril Allergy Rash/Hives Verified 06/14/23 08:34 losartan Allergy Rash/Hives Verified 06/14/23 08:34 Physical Exam Vitals: Vital Signs Temp Pulse Resp BP Pulse Ox 06/14/23 09:00 129 H 18 138/94 100 06/14/23 08:00 122 H 18 129/68 97 06/14/23 06:45 89 18 103/66 98 06/14/23 05:00 99 18 105/62 96 06/14/23 04:00 119 H 16 110/68 94 L 06/14/23 03:00 128 H 18 104/65 96 06/14/23 02:10 120 H 20 95/66 97 06/14/23 01:29 131 H 16 84/42 96 06/14/23 00:20 124 H 16 124/75 100 06/13/23 23:21 116 H 12 111/63 98 06/13/23 22:17 98.0 F 121 H 18 125/61 95 06/13/23 21:14 115 H 19 110/69 99 06/13/23 20:18 98.3 F 112 H 16 106/71 96 06/13/23 20:00 105 H 18 98/67 96 06/13/23 19:49 97.8 F 110 H 18 101/60 98 06/13/23 18:40 97.8 F 114 H 18 93/64 100 Intake and Output 06/13/23 06/14/23 06/14/23 22:59 06:59 14:59 Other: Weight 72.575 kg -GENERAL: The patient is awake alert but confused, follows commands HEENT: Pupils are round and equally reacting to light. EOMI. No scleral icterus. No conjunctival pallor. Normocephalic, atraumatic. No pharyngeal erythema. No thyromegaly. CARDIOVASCULAR: S1 and S2 present. No murmurs, rubs, or gallops. PULMONARY: Chest is clear to auscultation, no wheezing , no crackles. ABDOMEN: Soft, nontender, nondistended, normoactive bowel sounds. No palpable organomegaly. MUSCULOSKELETAL: No joint swelling or deformity. EXTREMITIES: No cyanosis, clubbing, or pedal edema. NEUROLOGICAL: Gross neurological examination did not reveal any focal deficits. SKIN: No rashes. no petechiae. Results CBC & Chem 7: 06/13/23 18:58 06/13/23 18:58 Labs: Abnormal Lab Results - Last 24 Hours (Table) 06/13/23 06/13/23 06/13/23 Range/Units 18:58 18:58 18:58 Neutrophils # (Manual) 9.60 H (1.3-7.7) k/uL Lymphocytes # (Manual) 0.10 L (1.0-4.8) k/uL PT 54.8 H (10.0-12.5) sec INR 5.6 H* (<1.2) APTT 53.4 H (22.0-30.0) sec Sodium 128 L (137-145) mmol/L Potassium 3.1 L (3.5-5.1) mmol/L Chloride 96 L (98-107) mmol/L BUN 60 H (7-17) mg/dL Creatinine 2.20 H (0.52-1.04) mg/dL Glucose 119 H (74-99) mg/dL Total Protein 5.3 L (6.3-8.2) g/dL Albumin 2.5 L (3.5-5.0) g/dL Assessment and Plan Assessment: Altered mental status most likely metabolic/toxic encephalopathy. Stroke felt most likely Fall at home Coagulopathy Hyponatremia, hypovolemic Mild hypokalemia Acute kidney injury on chronic kidney disease stage III A. fib with RVR, on Coumadin Right rotator cuff tear. Hypothyroidism Plan: Continue with normal saline 100 Per hour Monitor creatinine and electrolytes Hold Coumadin and monitor INR, resume Coumadin to keep target INR 2-3 Check urinalysis and bladder scan Cardiology and pulmonary consult Labs and medication were reviewed.. Continue same treatment. Continue with symptomatic treatment. Resume home medication. Monitor labs and vitals. DVT and GI prophylaxis. Further recommendations as per clinical course of the patient DVT prophylaxis: high INR GI Prophylaxis: Pepcid PT/OT: Pending Prognosis is guarded
--- NOTE | 2023-06-14 11:45 | P.CRDCN ---
History of Present Illness Consult date: 06/14/23 Consult reason: atrial fibrillation History of present illness: The patient is an 83-year-old female who follows in the office with Dr. Ford. The patient states she has had multiple falls over the last several weeks. She states that she was not dizzy and lightheaded, that she lost her balance and fell. She was brought into the emergency room by her family for further evaluation. Cardiology has been consulted for CVA and A-fib management. DIAGNOSTICS: EKG shows atrial fibrillation Telemetry shows A-fib with heart rates in the 120s Chest x-ray shows no acute cardiopulmonary process. Suspect right rotator cuff tear CT scan of the head and neck shows right vertebral occlusion with otherwise patent vessels CT scan of the brain shows no acute process. Chronic small vessel disease Lab data WBC 10.1, hemoglobin 12.0, hematocrit 36.4, platelet 191, INR 5.6, sodium 128, potassium 3.1, BUN 60, creatinine 2.20, AST 20, ALT 13 REVIEW OF SYSTEMS: No fever or chills. No cough or expectoration. No diaphoresis. Patient denies headache, dizziness, blurred vision, double vision. Patient denies any stomach discomfort. No nausea, vomiting. No hematochezia. No hematemesis. Denies any black stools or blood in his stools. Denies dysuria or hematuria. No muscle weakness or numbness. Positive for severe right hip pain. PHYSICAL EXAMINATION: This is a 83-year-old female in no apparent distress at the time of my examination. HEENT: Head is atraumatic, normocephalic. Pupils are equal, round. There is no jugular venous distention. No carotid bruit is heard. CHEST EXAMINATION: Lungs are diminished to auscultation. No chest wall tender ness is noted on palpation or with deep breathing. HEART EXAMINATION: Irregular rate and rhythm. S1, S2 heard. No murmurs, gallops or rub. ABDOMEN: Soft, nontender. Bowel sounds are heard. No organomegaly noted. EXTREMITIES: 2+ peripheral pulses with no evidence of peripheral edema and no calf tenderness noted. NEUROLOGIC EXAMINATION: Patient is awake, alert and oriented x3. FINAL ASSESSMENT AND PLAN: Mechanical fall Persistent atrial fibrillation, on warfarin Hypertension Former smoker Dehydration PLAN: Resume home dose of beta-poncho and continue Cardizem drip Warfarin on hold for elevated INR Do not resume hydrochlorothiazide Primary team to address hip pain Further recommendations to be based upon clinical course I am dictating on behalf of Dr Sebastian Ford's history/physical and assessment/plan. Past Medical History Past Medical History: Atrial Fibrillation, Cancer, Hypertension, Thyroid Disorder Additional Past Medical History / Comment(s): states has "lump in stomach" endometrial cancer 2017; neuropathy feet, states pre diabetic History of Any Multi-Drug Resistant Organisms: None Reported Past Surgical History: Section, Cholecystectomy, Hysterectomy, Joint Replacement Additional Past Surgical History / Comment(s): R Hip replaced, cardioversion, Past Anesthesia/Blood Transfusion Reactions: No Reported Reaction Past Psychological History: Anxiety, Depression Smoking Status: Former smoker Past Alcohol Use History: None Reported Past Drug Use History: None Reported - Past Family History Mother Family Medical History: No Reported History Medications and Allergies Home Medications Medication Instructions Recorded Confirmed Type Warfarin [Coumadin] 5 mg PO SUMOTUWETHSA 03/22/19 06/14/23 History Levothyroxine Sodium 125 mcg PO DAILY 12/23/21 06/14/23 History Metoprolol Tartrate [Lopressor] 25 mg PO BID 12/23/21 06/14/23 History Warfarin [Coumadin] 2.5 mg PO FR 06/04/23 06/14/23 History Chlorthalidone [Hygroton] 25 mg PO BID 06/14/23 06/14/23 History Ibuprofen [Motrin Ib] 200 mg PO BID 06/14/23 06/14/23 History Allergies Allergy/AdvReac Type Severity Reaction Status Date / Time lisinopril Allergy Rash/Hives Verified 06/14/23 08:34 losartan Allergy Rash/Hives Verified 06/14/23 08:34 Physical Exam Vitals: Vital Signs Temp Pulse Resp BP Pulse Ox 06/14/23 06:45 89 18 103/66 98 06/14/23 05:00 99 18 105/62 96 06/14/23 04:00 119 H 16 110/68 94 L 06/14/23 03:00 128 H 18 104/65 96 06/14/23 02:10 120 H 20 95/66 97 06/14/23 01:29 131 H 16 84/42 96 06/14/23 00:20 124 H 16 124/75 100 06/13/23 23:21 116 H 12 111/63 98 04/13/24 22:17 98.0 F 121 H 18 125/61 95 06/13/23 21:14 115 H 19 110/69 99 06/13/23 20:18 98.3 F 112 H 16 106/71 96 06/13/23 20:00 105 H 18 98/67 96 06/13/23 19:49 97.8 F 110 H 18 101/60 98 06/13/23 18:40 97.8 F 114 H 18 93/64 100 Intake and Output 06/13/23 06/14/23 06/14/23 22:59 06:59 14:59 Other: Weight 72.575 kg Results 06/13/23 18:58 06/13/23 18:58 Cardiac Enzymes 06/13/23 Range/Units 18:58 AST 20 (14-36) U/L Coagulation 06/13/23 Range/Units 18:58 PT 54.8 H (10.0-12.5) sec APTT 53.4 H (22.0-30.0) sec CBC 06/13/23 Range/Units 18:58 WBC 10.1 (3.8-10.6) k/uL RBC 3.94 (3.80-5.40) m/uL Hgb 12.0 (11.4-16.0) gm/dL Hct 36.4 (34.0-46.0) % Plt Count 191 (150-450) k/uL Comprehensive Metabolic Panel 06/13/23 Range/Units 18:58 Sodium 128 L (137-145) mmol/L Potassium 3.1 L (3.5-5.1) mmol/L Chloride 96 L (98-107) mmol/L Carbon Dioxide 23 (22-30) mmol/L BUN 60 H (7-17) mg/dL Creatinine 2.20 H (0.52-1.04) mg/dL Glucose 119 H (74-99) mg/dL Calcium 8.4 (8.4-10.2) mg/dL AST 20 (14-36) U/L ALT 13 (4-34) U/L Alkaline Phosphatase 105 (38-126) U/L Total Protein 5.3 L (6.3-8.2) g/dL Albumin 2.5 L (3.5-5.0) g/dL Current Medications Generic Name Dose Route Start Last Admin Trade Name Freq PRN Reason Stop Dose Admin Acetaminophen 650 mg 06/14/23 01:07 06/14/23 01:24 Acetaminophen Tab 325 Mg Tab PO 650 mg Q6HR PRN Administration Fever and/ or Pain Aspirin 325 mg 06/14/23 09:00 Aspirin 325 Mg Tab PO DAILY HELEN Sodium Chloride 1,000 mls @ 100 mls/hr 06/13/23 20:15 06/14/23 06:12 Saline 0.9% IV 100 mls/hr .Q10H HELEN Administration Diltiazem HCl 125 mg/ Sodium 125 mls @ 10 mls/hr 06/14/23 04:15 06/14/23 04:32 Chloride IV 10 mg/hr .[id number] HELEN 10 mls/hr Administration 10 MG/HR Intake and Output 06/13/23 06/14/23 06/14/23 22:59 06:59 14:59 Other: Weight 72.575 kg 06/13/23 18:58 06/13/23 18:58
[2023-06-14 12:33] LABS: Appearance,Urine Cloudy (Clear); Bacteria,Urine Occasional /hpf; Bilirubin,Urine Negative (Negative); Blood,Urine Moderate (Negative); Color,Urine Yellow; Glucose,Urine (UA) Negative (Negative); Ketones,Urine Negative (Negative); Leukocyte Esterase,Urine Large (Negative); Nitrite,Urine Negative (Negative); PH, Urine 5.5 (5.0-8.0); Protein,Urine 1+ (Negative); RBC,Urine 10 /hpf (0-5); Specific Gravity,Urine 1.031 (1.001-1.035); Squamous Epithelial Cell,Urine 2 /hpf (0-4); Urobilinogen,Urine <2.0 mg/dL (<2.0); WBC,Urine >182 /hpf (0-5)
[2023-06-14 12:59] LABS: Chol/HDL Ratio 3.79 Ratio; LDL Cholesterol,Calculated 45.4 mg/dL (0.0-131.0)
[2023-06-14] MEDS: SODIUM CHLORIDE 0.9% 500 ML 500 ML IV ONE ×2 (14:07→23:20)
--- NOTE | 2023-06-14 16:30 | P.CNNES ---
History of Present Illness Consult date: 06/14/23 Requesting physician: Krish Lopez Reason for Consult: CVA History of Present Illness: Patient is a 83-year-old right-handed female with history of hypertension, diabetes, came to the hospital by ambulance yesterday at 6:36 PM for frequent falls, body pain. Patient not able to provide detailed history. I spoke to patient's son on the phone, who states that patient has been losing motor skills. She suffered from a fall the past Thursday on 06/04/2023, after she answered to the doorbell, lost balance and fell. She usually does not get up by herself. Her equilibrium has been off since then. She was brought to the hospital and then released. About 2 days ago, on Thursday night, she was sitting in the chair and she started screaming in pain and son noticed that her mouth was droopy and she could not move her left arm, her body was frozen, stiff and she could not move her legs. Therefore he called the ambulance and was brought to the hospital. As per EMS flowsheet, when they arrived, patient was with her family, stating that they thought she had a stroke. Family states that last night she had signs of CVA and today patient is having hard time ambulating and has a decreased appetite. When EMS arrived patient was alert and orient x 4 with no signs or symptoms of CVA. Patient had no slurred speech, no facial droop, no extremity weakness. Patient has no obvious difficulty breathing and is able to speak in full sentences. Family was unable to describe the signs of CVA that occurred last night. Patient was able to stand with no assistance but is unable to ambulate to stretcher so stair chair was used to extricate the patient to stretcher. Patient was in normal sinus rhythm but changing to atrial fibrillation with infrequent PVCs. Patient's blood glucose was 135. Blood pressure 122/69, pulse rate 83 respiration 20 saturation 68%. Blood test shows normal CBC, INR 5.6, PTT 53.4. Sodium 128 potassium 3.1, BUN 60, creatinine 2.20, normal hepatic panel. UA shows large amount of leukocyte esterase, more than 182 WBCs and occasional WBC clumps. Occasional urine bacteria. CT head revealed no acute intracranial process. Nonspecific white matter changes, likely secondary to chronic small vessel ischemic disease. I personally reviewed CT head, agree with the findings. Chest x-ray showed no acute cardiopulmonary process. Cardiomegaly. Interstitial lung disease changes. Suspected rotator cuff tear/full-thickness tear on the right. EKG showed atrial fibrillation with rapid ventricular rate. Patient's son also mentions that she has fell about 3 times in the last 2 months. No previous history of stroke, although last year she might have 1, as she had some transient left-sided facial droop, drooling but was not "too bad", and did not seek medical attention. He states that she does not sleep well, she walks with a walker for last 1 year. Her son lives with her upstairs. She has used wheelchair only when she goes out too far with her son. Patient's son also mentions that the in-house nurse has noticed that for last 3 months she is losing some memory and that she is having some "signs of dementia". Some days she remembers better than other days. When she was seen in the ER on 06/04/2023, she was given Flexeril, which has "mentally messed her up". Patient send has noticed that her left leg has been hurting, back is hurting and she has been shaking bad. Patient at this time, able to tell me that everyone calls her with Abdirizak. Patient send has mentioned that patient smokes about 1 cigarette a day for last 3 years. Prior to that she had smoked about 1 pack/day for 30+ years. Does not drink alcohol. She has diabetes for last 4 to 5 years. Patient takes warfarin, levothyroxine, metoprolol, chlorthalidone. Review of Systems All pertinent positives and negatives mentioned in HPI. Otherwise negative. She has been feeling tired. No fever or chills. Her legs hurt. Her left arm hurts. Mouth is dry. Constitutional: Denies chronic pain Ears, nose, mouth and throat: Denies headache Past Medical History Past Medical History: Atrial Fibrillation, Cancer, Hypertension, Thyroid Disorder Additional Past Medical History / Comment(s): states has "lump in stomach" endometrial cancer 2017; neuropathy feet, states pre diabetic History of Any Multi-Drug Resistant Organisms: None Reported Past Surgical History: Section, Cholecystectomy, Hysterectomy, Joint Replacement Additional Past Surgical History / Comment(s): R Hip replaced, cardioversion, Past Anesthesia/Blood Transfusion Reactions: No Reported Reaction Past Psychological History: Anxiety, Depression Smoking Status: Former smoker Past Alcohol Use History: None Reported Past Drug Use History: None Reported - Past Family History Mother Family Medical History: No Reported History Medications and Allergies Home Medications Medication Instructions Recorded Confirmed Type Warfarin [Coumadin] 5 mg PO SUMOTUWETHSA 03/22/19 06/14/23 History Levothyroxine Sodium 125 mcg PO DAILY 12/23/21 06/14/23 History Metoprolol Tartrate [Lopressor] 25 mg PO BID 12/23/21 06/14/23 History Warfarin [Coumadin] 2.5 mg PO FR 06/04/23 06/14/23 History Chlorthalidone [Hygroton] 25 mg PO BID 06/14/23 06/14/23 History Ibuprofen [Motrin Ib] 200 mg PO BID 06/14/23 06/14/23 History Allergies Allergy/AdvReac Type Severity Reaction Status Date / Time lisinopril Allergy Rash/Hives Verified 06/14/23 08:34 losartan Allergy Rash/Hives Verified 06/14/23 08:34 Physical Examination - Vital Signs Vital Signs: Vital Signs Temp Pulse Resp BP Pulse Ox 06/14/23 14:12 101 H 16 83/55 06/14/23 13:43 102 H 16 79/57 06/14/23 11:00 95 16 113/72 99 06/14/23 10:00 112 H 16 113/64 06/14/23 09:00 129 H 18 138/94 100 06/14/23 08:00 122 H 18 129/68 97 06/14/23 06:45 89 18 103/66 98 06/14/23 05:00 99 18 105/62 96 06/14/23 04:00 119 H 16 110/68 94 L 06/14/23 03:00 128 H 18 104/65 96 06/14/23 02:10 120 H 20 95/66 97 06/14/23 01:29 131 H 16 84/42 96 06/14/23 00:20 124 H 16 124/75 100 06/13/23 23:21 116 H 12 111/63 98 06/13/23 22:17 98.0 F 121 H 18 125/61 95 06/13/23 21:14 115 H 19 110/69 99 06/13/23 20:18 98.3 F 112 H 16 106/71 96 06/13/23 20:00 105 H 18 98/67 96 06/13/23 19:49 97.8 F 110 H 18 101/60 98 06/13/23 18:40 97.8 F 114 H 18 93/64 100 Intake and Output 06/13/23 06/14/23 06/14/23 22:59 06:59 14:59 Other: Weight 72.575 kg Patient is an elderly female, laying in the bed, in no acute distress. Patient is slightly encephalopathic, slightly drowsy, but does wake up and answers quite appropriately. Her mouth is extremely dry, therefore has some slurring from that. Her voice is hoarse. Patient knows it is June 2023 and that she is in [place] in [place]. She states that she is in "[facility] in". Patient can name all objects presented including knuckles, earlobe and can repeat very well. No aphasia, but has moderate dysarthria, partly due to dry mouth. Attention, concentration is decreased and fund of knowledge is also decreased. On cranial nerve examination, pupils are equal, round and reacting to light, visual sanz are full on confrontation, with no neglect on double simultaneous stimulation. Extraocular muscles are intact with no nystagmus. Face is symmetric, tongue protrudes to the midline. Palatal elevation and sensation normal, hearing and shoulder shrug normal, facial sensation normal. On muscle strength testing, there is no pronator drift. Patient has pain in the deltoids. Her muscle strength is (right/left) deltoid weak bilaterally because of pain. Biceps 5-/4+, triceps 5/4, catering sales manager 5/5, hip flexion 3-/3, ankle dorsiflexion 5/5, toe extension 5/4. Deep tendon reflexes are symmetric biceps 1+, brachioradialis 1, knees trace, ankles trace and plantars are upgoing bilaterally. Sensory to touch is equal with no neglect on double simultaneous stimulation. Cerebellar function showed no ataxia for [id number] testing on the right, but cannot perform on the left because of arm weakness and pain. She uses her right hand to lift her left forearm. Cannot check for ataxia for [id number] testing on either side. Tone and bulk of muscles normal. Patient is edwige kinetic, slow mentation, but no tremors at rest. Tone is normal. Gait deferred.. On general examination, there is no carotid bruit or murmur, S1-S2 audible. Chest is clear on consultation. Abdomen is soft nontender. No organomegaly, bowel sounds present. Peripheral pulses are present. Patient has mild peripheral edema. Some areas of hyperpigmentation noted. Results - Laboratory Findings CBC and BMP: 06/13/23 18:58 06/13/23 18:58 Abnormal Lab Findings: Abnormal Labs 06/13/23 06/13/23 06/13/23 18:58 18:58 18:58 Neutrophils # (Manual) 9.60 H Lymphocytes # (Manual) 0.10 L PT 54.8 H INR 5.6 H* APTT 53.4 H Sodium 128 L Potassium 3.1 L Chloride 96 L BUN 60 H Creatinine 2.20 H Glucose 119 H Total Protein 5.3 L Albumin 2.5 L HDL Cholesterol Urine Appearance Urine Protein Urine Blood Ur Leukocyte Esterase Urine RBC Urine WBC Urine WBC Clumps Urine Bacteria 06/14/23 06/14/23 08:02 12:15 Neutrophils # (Manual) Lymphocytes # (Manual) PT INR APTT Sodium Potassium Chloride BUN Creatinine Glucose Total Protein Albumin HDL Cholesterol 24.80 L Urine Appearance Cloudy H Urine Protein 1+ H Urine Blood Moderate H Ur Leukocyte Esterase Large H Urine RBC 10 H Urine WBC >182 H Urine WBC Clumps Occasional H Urine Bacteria Occasional H Assessment and Plan Assessment: * Altered mental status, likely due to metabolic encephalopathy, reasons multifactorial as mentioned below * Possible stroke/TIA, manifesting with slurred speech and left-sided weakness. Patient does have left arm weakness, but associated pain, rule out mechanical versus central. * Occluded right vertebral artery * Atrial fibrillation with rapid ventricular rate. * Coagulopathy with elevated INR 5.6 * Hyponatremia * Hypokalemia * Moderate to severe renal insufficiency * Possible UTI * Frequent falls * Possible mild cognitive impairment versus delirium versus dementia * Diabetes * Hypertension * Tobacco use Plan: MRI of the brain without contrast, evaluate for acute CVA 2-D echo with bubble study to rule out PFO CTA head and neck showed: Occlusion/diminutive right vertebral artery extending from C5-C6 transverse processes. The left vertebral artery is dominant and patent. No evidence of dissection of the cervical internal carotid arteries or any evidence of significant stenosis at the carotid bifurcations. No evidence of intracranial high-grade stenosis or intracranial aneurysm. If MRI negative, may need orthopedic consultation for left arm pain and weakness. Fasting a.m. lipid panel with cholesterol 94, LDL 45, HDL 24, triglycerides 119. Hemoglobin A1c Patient has acute UTI, on ceftriaxone. Optimize control of blood pressure. Continue Coumadin. Target INR 2-3. At present patient has mild coagulopathy with elevated INR. Neuro checks every 4 hours. Telemetry monitoring rule out any arrhythmia PT, OT, speech therapy DVT prophylaxis: On Coumadin Recommend complete tobacco cessation Neurology will continue to follow. Thank you for the consult. Time with Patient: Greater than 30
[2023-06-14] MEDS: SODIUM CHLORIDE 0.9% 1,000 ML IV ONE (21:04)
[2023-06-15 09:03] LABS: HGB 12.2 gm/dL (11.4-16.0); Hypochromasia Slight; MCH 30.9 pg (25.0-35.0); MCHC 31.9 g/dL (31.0-37.0); MCV 96.6 fL (80.0-100.0); Mean Platelet Volume 10.3; Platelet Count 104 k/uL (150-450); RBC 3.94 m/uL (3.80-5.40); RDW 14.7 % (11.5-15.5); WBC 14.9 k/uL (3.8-10.6)
[2023-06-15] MEDS: LEVOTHYROXINE 125 MCG TAB PO SCH (09:09)
[2023-06-15] MEDS: METOPROLOL TARTRATE 25 MG TAB PO ONE (09:10)
[2023-06-15 09:33] LABS: African American GFR (CKD) 24 (>60 ml/min/1.73 sqM); Anion Gap 15 mmol/L; Blood Urea Nitrogen 61 mg/dL (7-17); Calcium 7.7 mg/dL (8.4-10.2); Carbon Dioxide 10 mmol/L (22-30); Chloride 108 mmol/L (98-107); Glucose 68 mg/dL (74-99); Non-African American GFR(CKD) 21 (>60 ml/min/1.73 sqM); Potassium 3.7 mmol/L (3.5-5.1); Sodium 133 mmol/L (137-145)
--- NOTE | 2023-06-15 09:59 | P.PN ---
Subjective HISTORY OF PRESENT ILLNESS: 06/14/2023 The patient is an 83-year-old female who follows in the office with Dr. Ford. The patient states she has had multiple falls over the last several weeks. She states that she was not dizzy and lightheaded, that she lost her balance and fell. She was brought into the emergency room by her family for further evaluation. Cardiology has been consulted for CVA and A-fib management. DIAGNOSTICS: EKG shows atrial fibrillation Telemetry shows A-fib with heart rates in the 120s Chest x-ray shows no acute cardiopulmonary process. Suspect right rotator cuff tear CT scan of the head and neck shows right vertebral occlusion with otherwise patent vessels CT scan of the brain shows no acute process. Chronic small vessel disease Lab data WBC 10.1, hemoglobin 12.0, hematocrit 36.4, platelet 191, INR 5.6, s odium 128, potassium 3.1, BUN 60, creatinine 2.20, AST 20, ALT 13 06/15/2023 Patient examined this morning at the bedside. Patient remains in the emergency room. Patient currently denies chest pain or pressure. She denies shortness of breath. She remains in atrial fibrillation with a heart rate ranging between [id number]. She is currently on IV Cardizem at 5 mg an hour. Most recent blood pressure 110/71. PHYSICAL EXAM: VITAL SIGNS: Reviewed. GENERAL: Well-developed in no acute distress. NECK: Supple. No JVD or thyromegaly LUNGS: Respirations even and unlabored. Lungs essentially clear to auscultation bilaterally. HEART: Tachycardic. Irregular rate and rhythm. S1 and S2 heard. EXTREMITIES: Normal range of motion. No clubbing or cyanosis. Peripheral pulses intact. No lower extremity edema ASSESSMENT: Mechanical fall Persistent atrial fibrillation, on warfarin Supratherapeutic INR Possible CVA/TIA, patient with slurred speech and left-sided weakness Acute kidney injury History of hypertension Former nicotine dependence Frequent falls at home PLAN: Increase metoprolol to 50 mg twice a day Wean off Cardizem drip as heart rate will tolerate Continue telemetry monitoring Continue to monitor INR Patient may not be a good candidate for continued anticoagulation secondary to frequent falls at home 2D echo has been ordered. Await results. Neurology is following. MRI of the brain has been ordered. Await results Further recommendations pending patient course Nurse practitioner note has been reviewed by physician. Signing provider agrees with the documented findings, assessment, and plan of care documented by MARKET STALL VENDOR as a scribe. Objective - Vital Signs Vital signs: Vital Signs Temp 97.4 F L 06/15/23 02:33 Pulse 121 H 06/15/23 08:23 Resp 18 06/15/23 08:23 BP 110/71 06/15/23 08:23 Pulse Ox 96 06/15/23 08:23 FiO2 Intake & Output 06/14/23 06/15/23 06/15/23 18:59 06:59 18:59 Intake Total 125 29.167 Balance 125 29.167 Intake: Intake, IV Titration 125 29.167 Amount Diltiazem 125 mg In 125 29.167 Sodium Chloride 0.9% 100 ml @ 10 MG/HR 10 mls/hr IV [id number] Rx#: [id number] - Labs CBC & Chem 7: 06/15/23 07:54 06/15/23 07:54 Labs: Abnormal Lab Results - Last 24 Hours (Table) 06/14/23 06/14/23 06/14/23 Range/Units 08:02 08:02 08:02 WBC (3.8-10.6) k/uL Plt Count (150-450) k/uL Sodium (137-145) mmol/L Chloride (98-107) mmol/L Carbon Dioxide (22-30) mmol/L BUN (7-17) mg/dL Creatinine (0.52-1.04) mg/dL Glucose (74-99) mg/dL Hemoglobin A1c 6.3 H (<=6.0) % Calcium (8.4-10.2) mg/dL HDL Cholesterol 24.80 L (40.00-60.00) mg/dL Vitamin B12 2192.0 H (200.0-944.0) pg/mL Urine Appearance (Clear) Urine Protein (Negative) Urine Blood (Negative) Ur Leukocyte Esterase (Negative) Urine RBC (0-5) /hpf Urine WBC (0-5) /hpf Urine WBC Clumps (None) /hpf Urine Bacteria (None) /hpf 06/14/23 06/15/23 06/15/23 Range/Units 12:15 07:54 07:54 WBC 14.9 H (3.8-10.6) k/uL Plt Count 104 L (150-450) k/uL Sodium 133 L (137-145) mmol/L Chloride 108 H (98-107) mmol/L Carbon Dioxide 10 L (22-30) mmol/L BUN 61 H (7-17) mg/dL Creatinine 2.12 H (0.52-1.04) mg/dL Glucose 68 L (74-99) mg/dL Hemoglobin A1c (<=6.0) % Calcium 7.7 L (8.4-10.2) mg/dL HDL Cholesterol (40.00-60.00) mg/dL Vitamin B12 (200.0-944.0) pg/mL Urine Appearance Cloudy H (Clear) Urine Protein 1+ H (Negative) Urine Blood Moderate H (Negative) Ur Leukocyte Esterase Large H (Negative) Urine RBC 10 H (0-5) /hpf Urine WBC >182 H (0-5) /hpf Urine WBC Clumps Occasional H (None) /hpf Urine Bacteria Occasional H (None) /hpf
[2023-06-15 10:06] LABS: Prothrombin Time >130.0 sec (10.0-12.5)
[2023-06-15 10:07] LABS: INR >10.0 (<1.2)
[2023-06-15] MEDS: METOPROLOL TARTRATE 50 MG TAB PO SCH ×2 (10:13→20:07)
[2023-06-15 11:02] LABS: Band Neutrophils % 6 %; Lymphocytes # (M) 0.15 k/uL (1.0-4.8); Neutrophils % (M) 91 %; Nucleated Red Blood Cells 0 /100 WBC (0-0); Total Cells Counted 100
[2023-06-15 11:03] LABS: Dohle Bodies Present; Poikilocytosis (M) Present; Toxic Granulation Present
[2023-06-15 11:04] LABS: Crenated RBC Present
[2023-06-15] MEDS: PHYTONADIONE 5 MG in SODIUM CHLORIDE 0.9% 50 ML IVPB STA (11:30)
--- NOTE | 2023-06-15 12:10 | P.PN ---
Subjective Progress Note Date: 06/15/23 Patient was seen for a follow-up. Patient is keeping her eyes closed, mumbling to herself. No one in the room. States she is doing "okay". Patient is laying in the bed. Appears comfortable. No distress. Denies headache. Patient is no change, no improved. Objective - Vital Signs Vital signs: Vital Signs Temp 97.4 F L 06/15/23 02:33 Pulse 101 H 06/15/23 11:45 Resp 14 06/15/23 11:45 BP 101/69 06/15/23 11:45 Pulse Ox 96 06/15/23 11:45 FiO2 Intake & Output 06/14/23 06/15/23 06/15/23 18:59 06:59 18:59 Intake Total 125 29.167 76.833 Balance 125 29.167 76.833 Intake: Intake, IV Titration 125 29.167 76.833 Amount Diltiazem 125 mg In 125 29.167 76.833 Sodium Chloride 0.9% 100 ml @ 10 MG/HR 10 mls/hr IV .[id number] [facility], [facility]–1983 Rx#: [id number] - Exam No change. Patient is laying in the bed, mumbling. - Labs CBC & Chem 7: 06/15/23 07:54 06/15/23 07:54 Labs: Abnormal Lab Results - Last 24 Hours (Table) 06/14/23 06/14/23 06/14/23 Range/Units 08:02 08:02 08:02 WBC (3.8-10.6) k/uL Plt Count (150-450) k/uL Neutrophils # (Manual) (1.3-7.7) k/uL Lymphocytes # (Manual) (1.0-4.8) k/uL PT (10.0-12.5) sec INR (<1.2) Sodium (137-145) mmol/L Chloride (98-107) mmol/L Carbon Dioxide (22-30) mmol/L BUN (7-17) mg/dL Creatinine (0.52-1.04) mg/dL Glucose (74-99) mg/dL Hemoglobin A1c 6.3 H (<=6.0) % Calcium (8.4-10.2) mg/dL HDL Cholesterol 24.80 L (40.00-60.00) mg/dL Vitamin B12 2192.0 H (200.0-944.0) pg/mL TSH (0.465-4.680) mIU/L Urine Appearance (Clear) Urine Protein (Negative) Urine Blood (Negative) Ur Leukocyte Esterase (Negative) Urine RBC (0-5) /hpf Urine WBC (0-5) /hpf Urine WBC Clumps (None) /hpf Urine Bacteria (None) /hpf 06/14/23 06/15/23 06/15/23 Range/Units 12:15 07:54 07:54 WBC 14.9 H (3.8-10.6) k/uL Plt Count 104 L (150-450) k/uL Neutrophils # (Manual) 14.40 H (1.3-7.7) k/uL Lymphocytes # (Manual) 0.15 L (1.0-4.8) k/uL PT (10.0-12.5) sec INR (<1.2) Sodium 133 L (137-145) mmol/L Chloride 108 H (98-107) mmol/L Carbon Dioxide 10 L (22-30) mmol/L BUN 61 H (7-17) mg/dL Creatinine 2.12 H (0.52-1.04) mg/dL Glucose 68 L (74-99) mg/dL Hemoglobin A1c (<=6.0) % Calcium 7.7 L (8.4-10.2) mg/dL HDL Cholesterol (40.00-60.00) mg/dL Vitamin B12 (200.0-944.0) pg/mL TSH 0.443 L (0.465-4.680) mIU/L Urine Appearance Cloudy H (Clear) Urine Protein 1+ H (Negative) Urine Blood Moderate H (Negative) Ur Leukocyte Esterase Large H (Negative) Urine RBC 10 H (0-5) /hpf Urine WBC >182 H (0-5) /hpf Urine WBC Clumps Occasional H (None) /hpf Urine Bacteria Occasional H (None) /hpf 06/15/23 Range/Units 09:40 WBC (3.8-10.6) k/uL Plt Count (150-450) k/uL Neutrophils # (Manual) (1.3-7.7) k/uL Lymphocytes # (Manual) (1.0-4.8) k/uL PT >130.0 H (10.0-12.5) sec INR >10.0 H* (<1.2) Sodium (137-145) mmol/L Chloride (98-107) mmol/L Carbon Dioxide (22-30) mmol/L BUN (7-17) mg/dL Creatinine (0.52-1.04) mg/dL Glucose (74-99) mg/dL Hemoglobin A1c (<=6.0) % Calcium (8.4-10.2) mg/dL HDL Cholesterol (40.00-60.00) mg/dL Vitamin B12 (200.0-944.0) pg/mL TSH (0.465-4.680) mIU/L Urine Appearance (Clear) Urine Protein (Negative) Urine Blood (Negative) Ur Leukocyte Esterase (Negative) Urine RBC (0-5) /hpf Urine WBC (0-5) /hpf Urine WBC Clumps (None) /hpf Urine Bacteria (None) /hpf Assessment and Plan Assessment: * Altered mental status, likely due to metabolic encephalopathy, reasons multifactorial as mentioned below * Possible stroke/TIA, manifesting with slurred speech and left-sided weakness. Patient does have left arm weakness, but associated pain, rule out mechanical versus central. * Occluded right vertebral artery * Atrial fibrillation with rapid ventricular rate. * Coagulopathy with elevated INR 5.6 * Hyponatremia * Hypokalemia * Moderate to severe renal insufficiency * Possible UTI * Frequent falls * Possible mild cognitive impairment versus delirium versus dementia * Diabetes * Hypertension * Tobacco use Plan: Await MRI of the brain without contrast, evaluate for acute CVA Await 2-D echo with bubble study to rule out PFO CTA head and neck showed: Occlusion/diminutive right vertebral artery extending from C5-C6 transverse processes. The left vertebral artery is dominant and patent. No evidence of dissection of the cervical internal carotid arteries or any evidence of significant stenosis at the carotid bifurcations. No evidence of intracranial high-grade stenosis or intracranial aneurysm. If MRI negative, may need orthopedic consultation for left arm pain and weakness. Fasting a.m. lipid panel with cholesterol 94, LDL 45, HDL 24, triglycerides 119. Lipids are well-controlled. Patient is not on any statins. Hemoglobin A1c 6.3. Patient has acute UTI, on ceftriaxone. Optimize control of blood pressure. Continue Coumadin. Target INR 2-3. Patient's coagulopathy has got worse, with INR > 10.0, and PTT > 130. Patient received vitamin K. Neuro checks every 4 hours. Telemetry monitoring rule out any arrhythmia PT, OT, speech therapy DVT prophylaxis: On Coumadin Recommend complete tobacco cessation
--- NOTE | 2023-06-15 12:20 | P.GSCN ---
History of Present Illness Consult date: 06/15/23 Reason for Consult: Vertebral artery occlusion Requesting physician: Severino E Sheet History of present illness: This is a 83-year-old female who presented to the emergency department yesterday with concerns for generalized weakness and possible CVA. She has a past medical history including atrial fibrillation, endometrial cancer, hypertension and thyroid disorder. Apparently there is some reports from family that she had some left-sided weakness and possible slurred speech. Patient is seen this morning in the emergency department. She seems somewhat confused. Denies any previous history of stroke. She had a CT of the brain that showed no acute findings. She also had a CT angiogram head and neck as part of her stroke workup which reported occluded right vertebral artery otherwise bilateral internal carotid arteries with no hemodynamically significant stenosis. Vascular surgery was consulted for occluded right vertebral artery. Patient is a poor historian. States that she has fallen in the past. She is a smoker and states that she has cut back to 1 to 2 cigarettes a day. She is on Coumadin for her atrial fibrillation INR was 5.6 on admission. She is alert and oriented to self. She is able to follow commands. Review of Systems A 14 point review systems was completed all pertinent positives and negatives as stated in the HPI. Past Medical History Past Medical History: Atrial Fibrillation, Cancer, Hypertension, Thyroid Disorder Additional Past Medical History / Comment(s): states has "lump in stomach" endometrial cancer 2017; neuropathy feet, states pre diabetic History of Any Multi-Drug Resistant Organisms: None Reported Past Surgical History: Section, Cholecystectomy, Hysterectomy, Joint Replacement Additional Past Surgical History / Comment(s): R Hip replaced, cardioversion, Past Anesthesia/Blood Transfusion Reactions: No Reported Reaction Past Psychological History: Anxiety, Depression Smoking Status: Former smoker Past Alcohol Use History: None Reported Past Drug Use History: None Reported - Past Family History Mother Family Medical History: No Reported History Medications and Allergies Home Medications Medication Instructions Recorded Confirmed Type Warfarin [Coumadin] 5 mg PO SUMOTUWETHSA 03/22/19 06/14/23 History Levothyroxine Sodium 125 mcg PO DAILY 12/23/21 06/14/23 History Metoprolol Tartrate [Lopressor] 25 mg PO BID 12/23/21 06/14/23 History Warfarin [Coumadin] 2.5 mg PO FR 06/04/23 06/14/23 History Chlorthalidone [Hygroton] 25 mg PO BID 06/14/23 06/14/23 History Ibuprofen [Motrin Ib] 200 mg PO BID 06/14/23 06/14/23 History Allergies Allergy/AdvReac Type Severity Reaction Status Date / Time lisinopril Allergy Rash/Hives Verified 06/14/23 08:34 losartan Allergy Rash/Hives Verified 06/14/23 08:34 Surgical - Exam Vital Signs Temp Pulse Resp BP Pulse Ox 97.8 F 114 H 18 93/64 100 06/13/23 18:40 06/13/23 18:40 06/13/23 18:40 06/13/23 18:40 06/13/23 18:40 General appearance: The patient is alert, oriented to self, appears in no acute distress. HET: Head is normocephalic and atraumatic. Pupils are equal and reactive. Neck: Supple. No audible bruit. Heart: Regular. Lungs: Equal expansion, normal respiratory effort. Abdomen: Soft, nontender, nondistended. Extremities: Normal skin color and turgor. Neurological: No focal deficits noted. Patient may have some mild weakness of the left lower and upper extremity compared to right. Results - Labs 06/15/23 07:54 06/15/23 07:54 Abnormal Lab Results - Last 24 Hours (Table) 06/14/23 06/14/23 06/14/23 Range/Units 08:02 08:02 12:15 Hemoglobin A1c 6.3 H (<=6.0) % HDL Cholesterol 24.80 L (40.00-60.00) mg/dL Urine Appearance Cloudy H (Clear) Urine Protein 1+ H (Negative) Urine Blood Moderate H (Negative) Ur Leukocyte Esterase Large H (Negative) Urine RBC 10 H (0-5) /hpf Urine WBC >182 H (0-5) /hpf Urine WBC Clumps Occasional H (None) /hpf Urine Bacteria Occasional H (None) /hpf Diabetes panel 06/14/23 06/14/23 Range/Units 08:02 08:02 Hemoglobin A1c 6.3 H (<=6.0) % Triglycerides 119.00 (0.00-149.00) mg/dL HDL Cholesterol 24.80 L (40.00-60.00) mg/dL - Imaging Comments: CT angiogram head and neck reports occlusion/diminutive right vertebral artery extending from C6-C4 transverse processes. The left vertebral artery is dominant and patent. No evidence of dissection of the cervical internal carotid arteries or any evidence of significant stenosis at the carotid bifurcations. No evidence of intracranial high-grade stenosis or intracranial aneurysm. Brain CT: No acute intracranial process. Nonspecific white matter changes, likely secondary to chronic small vessel ischemic disease Assessment and Plan Assessment: 1. Altered mental status changes likely secondary to metabolic encephalopathy 2. Weakness with frequent falls 3. Right vertebral artery occlusion 4. Atrial fibrillation 5. Coagulopathy with elevated INR 5.6 6. Hyponatremia 7. Hypokalemia 8. Renal insufficiency 9. Diabetes mellitus 10. Chronic tobacco use Plan: Patient is scheduled to undergo MRI of the brain. Right vertebral artery occlusion, left vertebral artery is patent. There is no indication for any vascular surgical intervention. There is no evidence of any internal carotid artery disease. Continue with recommendations from neurology. Continue medical management per primary medical team. Thank you for this consultation, we will sign off at this time. The impression and plan of care has been dictated as directed. I performed a history and examination of this patient, discussed the same with the dictator. I agree with the dictator's note ,documented as a scribe. Any additional findings or plans will be noted.
[2023-06-15 12:34] LABS: T4, Free (Free Thyroxine) 1.78 ng/dL (0.78-2.19)
--- NOTE | 2023-06-15 14:16 | P.PN ---
Subjective Progress Note Date: 06/15/23 this is a pleasant 83 years old female with multiple medical problems Patient somewhat poor historian and information obtained from the patient and son at bedside Patient was in this facility about 10 days ago after she fell and hurt her back, she was discharge with recommendation to use some ibuprofen 1 at home over the last 2 days as per son patient was given more slurred speech or weakness on the left side although she has also limitation on the right side because of her shoulder pain Now she is more awake and she can move her left side As per son patient got frequent urinary tract infection and patient has been complaining from increased frequency of urination with some dysuria She had 2 large bowel movement yesterday with no abdominal pain or vomiting She denies chest pain or dyspnea She is mildly tachycardic from 117 Creatinine is 2.2 which is slightly above baseline with sodium 128, potassium 3.0 and INR is elevated at 5.6 EKG showing atrial fibrillation's with RVR at 125 CT of the brain is negative for acute processes CTA of the head and neck she is negative for dissection or aneurysm however 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 fib 06/14. Patient seen and examined. Blood work done this morning showed WBC 14.9, hemoglobin 12.2, sodium 133, potassium 3.7, BUN 61, creatinine 2.12, INR greater than 10 patient mumbling to herself, unable to obtain a detailed review of system. REVIEW OF SYSTEMS: Cannot be obtained because of patient current mental status PHYSICAL EXAMINATION: GENERAL: The patient is alert to self HEENT: Pupils are round and equally reacting to light. EOMI. No scleral icterus. No conjunctival pallor. Normocephalic, atraumatic. No pharyngeal erythema. No thyromegaly. CARDIOVASCULAR: S1 and S2 present. No murmurs, rubs, or gallops. PULMONARY: Chest is clear to auscultation, no wheezing or crackles. ABDOMEN: Soft, nontender, nondistended, normoactive bowel sounds. No palpable organomegaly. MUSCULOSKELETAL: No joint swelling or deformity. EXTREMITIES: No cyanosis, clubbing, or pedal edema. NEUROLOGICAL: Moving all extremities SKIN: No rashes. Assessment and plan Altered mental status most likely metabolic/toxic encephalopathy. Stroke felt most likely Fall at home Coagulopathy Supratherapeutic INR Hyponatremia, hypovolemic Mild hypokalemia Acute kidney injury on chronic kidney disease stage III A. fib with RVR, on Coumadin Right rotator cuff tear. Hypothyroidism Monitor vital signs Monitor CBC Monitor CMP Continue telemetry monitoring Continue IV Cardizem Coumadin on hold because of supratherapeutic INR, will give 1 dose of vitamin K as well Continue IV Rocephin IV fluids MRI brain ordered 2D echo ordered Neurology consulted cardiology following Labs and medication were reviewed.. Continue same treatment. Continue with symptomatic treatment. Resume home medication. Monitor labs and vitals. DVT and GI prophylaxis. Further recommendations as per clinical course of the patient Dictation was produced using [employer] dictation software. please excuse any grammatical, word or spelling errors. Objective - Vital Signs Vital signs: Vital Signs Temp 97.4 F L 06/15/23 02:33 Pulse 121 H 06/15/23 08:23 Resp 18 06/15/23 08:23 BP 110/71 06/15/23 08:23 Pulse Ox 96 06/15/23 08:23 FiO2 Intake & Output 06/14/23 06/15/23 06/15/23 18:59 06:59 18:59 Intake Total 125 29.167 Balance 125 29.167 Intake: Intake, IV Titration 125 29.167 Amount Diltiazem 125 mg In 125 29.167 Sodium Chloride 0.9% 100 ml @ 10 MG/HR 10 mls/hr IV .[id number] [facility] Rx#: [id number] - Labs CBC & Chem 7: 06/15/23 07:54 06/15/23 07:54 Labs: Abnormal Lab Results - Last 24 Hours (Table) 06/14/23 06/14/23 06/14/23 Range/Units 08:02 08:02 08:02 WBC (3.8-10.6) k/uL Plt Count (150-450) k/uL PT (10.0-12.5) sec INR (<1.2) Sodium (137-145) mmol/L Chloride (98-107) mmol/L Carbon Dioxide (22-30) mmol/L BUN (7-17) mg/dL Creatinine (0.52-1.04) mg/dL Glucose (74-99) mg/dL Hemoglobin A1c 6.3 H (<=6.0) % Calcium (8.4-10.2) mg/dL HDL Cholesterol 24.80 L (40.00-60.00) mg/dL Vitamin B12 2192.0 H (200.0-944.0) pg/mL TSH (0.465-4.680) mIU/L Urine Appearance (Clear) Urine Protein (Negative) Urine Blood (Negative) Ur Leukocyte Esterase (Negative) Urine RBC (0-5) /hpf Urine WBC (0-5) /hpf Urine WBC Clumps (None) /hpf Urine Bacteria (None) /hpf 06/14/23 06/15/23 06/15/23 Range/Units 12:15 07:54 07:54 WBC 14.9 H (3.8-10.6) k/uL Plt Count 104 L (150-450) k/uL PT (10.0-12.5) sec INR (<1.2) Sodium 133 L (137-145) mmol/L Chloride 108 H (98-107) mmol/L Carbon Dioxide 10 L (22-30) mmol/L BUN 61 H (7-17) mg/dL Creatinine 2.12 H (0.52-1.04) mg/dL Glucose 68 L (74-99) mg/dL Hemoglobin A1c (<=6.0) % Calcium 7.7 L (8.4-10.2) mg/dL HDL Cholesterol (40.00-60.00) mg/dL Vitamin B12 (200.0-944.0) pg/mL TSH 0.443 L (0.465-4.680) mIU/L Urine Appearance Cloudy H (Clear) Urine Protein 1+ H (Negative) Urine Blood Moderate H (Negative) Ur Leukocyte Esterase Large H (Negative) Urine RBC 10 H (0-5) /hpf Urine WBC >182 H (0-5) /hpf Urine WBC Clumps Occasional H (None) /hpf Urine Bacteria Occasional H (None) /hpf 06/15/23 Range/Units 09:40 WBC (3.8-10.6) k/uL Plt Count (150-450) k/uL PT >130.0 H (10.0-12.5) sec INR >10.0 H* (<1.2) Sodium (137-145) mmol/L Chloride (98-107) mmol/L Carbon Dioxide (22-30) mmol/L BUN (7-17) mg/dL Creatinine (0.52-1.04) mg/dL Glucose (74-99) mg/dL Hemoglobin A1c (<=6.0) % Calcium (8.4-10.2) mg/dL HDL Cholesterol (40.00-60.00) mg/dL Vitamin B12 (200.0-944.0) pg/mL TSH (0.465-4.680) mIU/L Urine Appearance (Clear) Urine Protein (Negative) Urine Blood (Negative) Ur Leukocyte Esterase (Negative) Urine RBC (0-5) /hpf Urine WBC (0-5) /hpf Urine WBC Clumps (None) /hpf Urine Bacteria (None) /hpf
--- NOTE | 2023-06-15 16:03 | MR ---
EXAMINATION TYPE: MR brain wo con DATE OF EXAM: 06/15/2023 3:52 PM CLINICAL INDICATION:Female, 83 years old with history of cva; COMPARISON: 06/13/2023. TECHNIQUE: Multi planar, multi sequence imaging was performed through the brain including: T1, T2, In version recovery, Diffusion weighted imaging, and gradient echo imaging. No gadolinium was given. FINDINGS: Mild cerebral atrophy with proportional dilation of ventricular system. Scattered foci of high T2 s ignal intensity are seen within the periventricular white matter. Midline structures show no abnormal ity. Diffusion-weighted imaging shows no evidence of restricted diffusion. The susceptibility weighte d images do not reveal any evidence for micro-hemorrhage. The bone marrow signal is within normal limits. Paranasal sinuses and mastoid air cells: Paranasal sinus mucosal thickening most pronounced in the ri ght maxillary sinus with near complete opacification with mucosal thickening and secretions. Visualized orbits: Orbital contents are intact. IMPRESSION: 1. No evidence of intracranial mass or acute/subacute infarct. 2. Nonspecific white matter changes, likely secondary to small vessel ischemic disease. 3. Moderate right maxillary sinus mucosal thickening and secretions.
--- NOTE | 2023-06-15 18:02 | CA ---
Transthoracic Echo Report Name: Camilla Valdes Age: 83 Gender: F : 1940 Exam Date: 06/15/2023 12:56 Exam Location: [place] [facility] Ht (in): 67 Wt (lb): 160 Ordering Physician: Krish Lopez DO Attending/Referring Phys: Airconditioning Drafting Officer Stephanie Ortega RCS Procedure CPT: Indications: Thrombus Cardiac Hx: Technical Quality: Fair Contrast 1: Total Dose (mL): Contrast 2: Total Dose (mL): MEASUREMENTS (Male / Female) Normal Values 2D ECHO LV Diastolic Diameter PLAX 4.3 cm 4.2 - 5.9 / 3.9 - 5.3 cm LV Systolic Diameter PLAX 3.2 cm IVS Diastolic Thickness 1.2 cm 0.6 - 1.0 / 0.6 - 0.9 cm LVPW Diastolic Thickness 1.1 cm 0.6 - 1.0 / 0.6 - 0.9 cm LV Relative Wall Thickness 0.5 RV Internal Dim ED PLAX 2.6 cm LVOT Diameter 2.1 cm Aortic Root Diameter 3.0 cm LV Diastolic Volume MOD 4C 70.7 cm??? LV Systolic Volume MOD 4C 23.1 cm??? LV Ejection Fraction MOD 4C 67.3 % LV Cardiac Index MOD 4C 2273.5 cm???/min???m??? LV Diastolic Length 4C 6.9 cm LV Systolic Length 4C 5.9 cm Ascending Aorta Diameter 3.6 cm DOPPLER AV Peak Velocity 125.4 cm/s AV Peak Gradient 6.3 mmHg AV Mean Velocity 92.2 cm/s AV Mean Gradient 3.7 mmHg AV Velocity Time Integral 23.8 cm LVOT Peak Velocity 98.1 cm/s LVOT Peak Gradient 3.8 mmHg LVOT Velocity Time Integral 17.9 cm LVOT Stroke Volume 61.9 cm??? LVOT Stroke Volume Index 33.6 ml/m??? LVOT Cardiac Index 2956.7 cm???/min???m??? AV Area Cont Eq vti 2.6 cm??? AV Area Cont Eq pk 2.7 cm??? TR Peak Velocity 251.2 cm/s TR Peak Gradient 25.2 mmHg Right Atrial Pressure 20.0 mmHg Pulmonary Artery Systolic Pressu 45.2 mmHg Right Ventricular Systolic Press 45.2 mmHg PV Peak Velocity 67.4 cm/s PV Peak Gradient 1.8 mmHg FINDINGS Left Ventricle Left ventricular ejection fraction is estimated at 60-65 %. Mildly increased septal wall thickness. Mildly increased posterior wall thickness. Left ventricular cavity size normal. No obvious regional wall motion abnormalities. Right Ventricle Normal right ventricular size and function. Moderately increased right ventricular systolic function. Right Atrium Severe right atrial dilatation by visual. Left Atrium Normal left atrial size. Mitral Valve Structurally normal mitral valve. No evidence for mitral valve prolapse. No mitral stenosis. Mitral annular calcification. Mild mitral regurgitation. Aortic Valve Trileaflet aortic valve. No aortic valve stenosis or regurgitation. Tricuspid Valve Structurally normal tricuspid valve. No tricuspid stenosis. Mild to moderate tricuspid regurgitation. Pulmonic Valve Pulmonic valve not well visualized. No pulmonic stenosis. Trace pulmonic regurgitation. Pericardium No pericardial effusion. Aorta Normal size aortic root and proximal ascending aorta. CONCLUSIONS Normal LV function mild to moderate tricuspid regurgitation Mild mitral regurgitation Consider transesophageal echo if clinically indicated to definitively rule out intracardiac thrombus Previewed by: Dr. Steven Almodovar MD (Electronically Signed) Final Date: 15 June 2023 18:01
[2023-06-15 20:23] LABS: INR 1.9 (<1.2)
[2023-06-16 12:05] LABS: African American GFR (CKD) 26 (>60 ml/min/1.73 sqM); Anion Gap 15 mmol/L; Blood Urea Nitrogen 72 mg/dL (7-17); Carbon Dioxide 10 mmol/L (22-30); Chloride 113 mmol/L (98-107); Glucose 78 mg/dL (74-99); Non-African American GFR(CKD) 23 (>60 ml/min/1.73 sqM); Sodium 138 mmol/L (137-145)
[2023-06-16 12:18] LABS: Basophils # (A) 0.1 k/uL (0-0.2); Basophils % (A) 0 %; Eosinophils % (A) 0 %; HCT 39.2 % (34.0-46.0); HGB 12.2 gm/dL (11.4-16.0); Hypochromasia Marked; Lymphocytes # (A) 0.3 k/uL (1.0-4.8); Lymphocytes % (A) 2 %; MCH 30.6 pg (25.0-35.0); MCV 98.9 fL (80.0-100.0); Macrocytosis Slight; Mean Platelet Volume 10.1; Monocytes # (A) 0.8 k/uL (0-1.0); Monocytes % (A) 4 %; Neutrophils # (A) 17.5 k/uL (1.3-7.7); Neutrophils % (A) 93 %; RBC 3.96 m/uL (3.80-5.40); RDW 14.8 % (11.5-15.5); WBC 18.8 k/uL (3.8-10.6)
--- NOTE | 2023-06-16 12:48 | P.PN ---
Subjective HISTORY OF PRESENT ILLNESS: 06/14/2023 The patient is an 83-year-old female who follows in the office with Dr. Ford. The patient states she has had multiple falls over the last several weeks. She states that she was not dizzy and lightheaded, that she lost her balance and fell. She was brought into the emergency room by her family for further evaluation. Cardiology has been consulted for CVA and A-fib management. DIAGNOSTICS: EKG shows atrial fibrillation Telemetry shows A-fib with heart rates in the 120s Chest x-ray shows no acute cardiopulmonary process. Suspect right rotator cuff tear CT scan of the head and neck shows right vertebral occlusion with otherwise patent vessels CT scan of the brain shows no acute process. Chronic small vessel disease Lab data WBC 10.1, hemoglobin 12.0, hematocrit 36.4, platelet 191, INR 5.6, s odium 128, potassium 3.1, BUN 60, creatinine 2.20, AST 20, ALT 13 06/15/2023 Patient examined this morning at the bedside. Patient remains in the emergency room. Patient currently denies chest pain or pressure. She denies shortness of breath. She remains in atrial fibrillation with a heart rate ranging between [id number]. She is currently on IV Cardizem at 5 mg an hour. Most recent blood pressure 110/71. 06/16/2023 Patient examined this morning. Patient is lethargic today. She does awaken to verbal stimuli. She denies any chest pain or pressure. Denies SOB. Telemetry reveals atrial fibrillation with heart rate in the low 100s. Echocardiogram completed revealing ejection fraction 60 to 65% with mild MR. MRI of the brain completed with no evidence of intracranial mass or acute/subacute infarct. INR yesterday 1.9. Per nursing, patient is unable to take her oral medications due to her lethargy. PHYSICAL EXAM: VITAL SIGNS: Reviewed. GENERAL: Well-developed in no acute distress. NECK: Supple. No JVD or thyromegaly LUNGS: Respirations even and unlabored. Lungs essentially clear to auscultation bilaterally. HEART: Tachycardic. Irregular rate and rhythm. S1 and S2 heard. EXTREMITIES: Normal range of motion. No clubbing or cyanosis. Peripheral pulses intact. No lower extremity edema. ASSESSMENT: Mechanical fall Persistent atrial fibrillation, on warfarin Supratherapeutic INR Possible CVA/TIA, patient with slurred speech and left-sided weakness, MRI negative Acute kidney injury History of hypertension Former nicotine dependence Frequent falls at home PLAN: Continue metoprolol to 50 mg twice a day when patient able to tolerate PO meds Add IVP lopressor PRN Patient is not be a good candidate for continued anticoagulation secondary to frequent falls at home Further recommendations pending patient course Nurse practitioner note has been reviewed by physician. Signing provider agrees with the documented findings, assessment, and plan of care documented by D[employer]LOMA [employer]KER as a scribe. Objective - Vital Signs Vital signs: Vital Signs Temp 97.7 F 06/16/23 08:00 Pulse 110 H 06/16/23 08:00 Resp 20 06/16/23 08:00 BP 117/85 06/16/23 08:00 Pulse Ox 97 06/16/23 08:00 FiO2 Intake & Output 06/15/23 06/16/23 06/16/23 18:59 06:59 18:59 Intake Total 76.833 Balance 76.833 Weight 72.575 kg Intake: Intake, IV Titration 76.833 Amount Diltiazem 125 mg In 76.833 Sodium Chloride 0.9% 100 ml @ 10 MG/HR 10 mls/hr IV .[id number] [facility] Rx#: [id number] Other: Voiding Method External Catheter External Catheter - Labs CBC & Chem 7: 06/16/23 11:30 06/16/23 11:30 Labs: Abnormal Lab Results - Last 24 Hours (Table) 06/15/23 Range/Units 19:33 PT 19.0 H (10.0-12.5) sec INR 1.9 H (<1.2) Microbiology - Last 24 Hours (Table) 06/14/23 12:15 Urine Culture - Preliminary Urine,Clean Catch Gram Neg Bacilli
--- NOTE | 2023-06-16 13:28 | P.PN ---
Subjective Progress Note Date: 06/16/23 this is a pleasant 83 years old female with multiple medical problems Patient somewhat poor historian and information obtained from the patient and son at bedside Patient was in this facility about 10 days ago after she fell and hurt her back, she was discharge with recommendation to use some ibuprofen 1 at home over the last 2 days as per son patient was given more slurred speech or weakness on the left side although she has also limitation on the right side because of her shoulder pain Now she is more awake and she can move her left side As per son patient got frequent urinary tract infection and patient has been complaining from increased frequency of urination with some dysuria She had 2 large bowel movement yesterday with no abdominal pain or vomiting She denies chest pain or dyspnea She is mildly tachycardic from 117 Creatinine is 2.2 which is slightly above baseline with sodium 128, potassium 3.0 and INR is elevated at 5.6 EKG showing atrial fibrillation's with RVR at 125 CT of the brain is negative for acute processes CTA of the head and neck she is negative for dissection or aneurysm however 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 fib 06/14. Patient seen and examined. Blood work done this morning showed WBC 14.9, hemoglobin 12.2, sodium 133, potassium 3.7, BUN 61, creatinine 2.12, INR greater than 10 patient mumbling to herself, unable to obtain a detailed review of system. 06/15. Patient seen and examined. Patient is opening eyes, continues to be confused. Does not look in acute distress. Blood work done this morning showed WBC 18.8, hemoglobin 12.2, sodium 138, potassium 4, BUN 72, creatinine 1.96, lactate 2.4. Echocardiogram completed revealing ejection fraction 60 to 65% with mild MR MRI of the brain completed with no evidence of intracranial mass or acute/subacute infarct. REVIEW OF SYSTEMS: Cannot be obtained because of patient current mental status PHYSICAL EXAMINATION: GENERAL: The patient is alert to self HEENT: Pupils are round and equally reacting to light. EOMI. No scleral icterus. No conjunctival pallor. Normocephalic, atraumatic. No pharyngeal erythema. No thyromegaly. CARDIOVASCULAR: S1 and S2 present. No murmurs, rubs, or gallops. PULMONARY: Chest is clear to auscultation, no wheezing or crackles. ABDOMEN: Soft, nontender, nondistended, normoactive bowel sounds. No palpable organomegaly. MUSCULOSKELETAL: No joint swelling or deformity. EXTREMITIES: Venous stasis changes of lower extremities NEUROLOGICAL: Moving all extremities SKIN: No rashes. Assessment and plan Altered mental status most likely metabolic/toxic encephalopathy. Stroke felt most likely Fall at home Coagulopathy Supratherapeutic INR Hyponatremia, hypovolemic Mild hypokalemia Acute kidney injury on chronic kidney disease stage III A. fib with RVR, on Coumadin Right rotator cuff tear. Hypothyroidism Monitor vital signs Monitor CBC Monitor CMP Continue telemetry monitoring Continue IV Cardizem Continue pharmacy to dose Coumadin Continue IV Rocephin Continue IV fluids Echocardiogram completed revealing ejection fraction 60 to 65% with mild MR MRI of the brain completed with no evidence of intracranial mass or acute/subacute infarct. Neurology following cardiology following Consult ID Labs and medication were reviewed.. Continue same treatment. Continue with symptomatic treatment. Resume home medication. Monitor labs and vitals. DVT and GI prophylaxis. Further recommendations as per clinical course of the patient Dictation was produced using [employer] dictation software. please excuse any grammatical, word or spelling errors. Objective - Vital Signs Vital signs: Vital Signs Temp 97.7 F 06/16/23 08:00 Pulse 110 H 06/16/23 08:00 Resp 20 06/16/23 08:00 BP 117/85 06/16/23 08:00 Pulse Ox 97 06/16/23 08:00 FiO2 Intake & Output 06/15/23 06/16/23 06/16/23 18:59 06:59 18:59 Intake Total 76.833 Balance 76.833 Weight 72.575 kg Intake: Intake, IV Titration 76.833 Amount Diltiazem 125 mg In 76.833 Sodium Chloride 0.9% 100 ml @ 10 MG/HR 10 mls/hr IV .[id number] [facility] Rx#: [id number] Other: Voiding Method External Catheter External Catheter - Labs CBC & Chem 7: 06/16/23 11:30 06/16/23 11:30 Labs: Abnormal Lab Results - Last 24 Hours (Table) 06/15/23 06/16/23 06/16/23 Range/Units 19:33 11:30 11:30 WBC 18.8 H (3.8-10.6) k/uL PT 19.0 H (10.0-12.5) sec INR 1.9 H (<1.2) Chloride 113 H (98-107) mmol/L Carbon Dioxide 10 L (22-30) mmol/L BUN 72 H (7-17) mg/dL Creatinine 1.96 H (0.52-1.04) mg/dL Plasma Lactic Acid Get (0.7-2.0) mmol/L Calcium 8.0 L (8.4-10.2) mg/dL 06/16/23 Range/Units 11:30 WBC (3.8-10.6) k/uL PT (10.0-12.5) sec INR (<1.2) Chloride (98-107) mmol/L Carbon Dioxide (22-30) mmol/L BUN (7-17) mg/dL Creatinine (0.52-1.04) mg/dL Plasma Lactic Acid Get 2.4 H* (0.7-2.0) mmol/L Calcium (8.4-10.2) mg/dL Microbiology - Last 24 Hours (Table) 06/14/23 12:15 Urine Culture - Preliminary Urine,Clean Catch Gram Neg Bacilli
[2023-06-16 15:29] LABS: Platelet Count 97 k/uL (150-450)
[2023-06-16] MEDS: METOPROLOL TARTRATE 5 MG/5 ML VIAL IVP PRN (18:05)
--- NOTE | 2023-06-16 18:55 | CDI ---
Documentation Clarification Form Date: 06/16/2023 06:39:51 PM From: Susan Howell RN, CCDS Phone: [phone] Admit Date: 06/13/2023 08:13:00 PM Patient Name: Camilla Valdes Visit Number: [id number] Discharge Date: ATTENTION: The Clinical Documentation Specialists (CDI) and [facility] Coding Staff appreciate your assistance in clarifying documentation. Please respond to the clarification below the line at the bottom and electronically sign. The CDI & [facility] Coding staff will review the response and follow-up if needed. Please note: Queries are made part of the Legal Health Record. If you have any questions, please contact the author of this message via ITS. Dr. Fabio Bauamn Your patient has an abnormal lab value: UA Leukocyte Esterase -Large, Urine WBC >182, Urine Culture -Escherichia coli. Please clarify if there is an additional diagnosis and/or clinical significance related to this value. History/Risk Factors: Atrial Fibrillation, Cancer, Hypertension, Thyroid Disorder, Former smoker Clinical indicators: 83-year-old female presenting to the emergency department with weakness. As per son patient got frequent urinary tract infection and patient has been complaining from increased frequency of urination with some dysuria. She has altered mental status change. 06/12 VS: 93/64 114 18 97.8 100% RA 06/12 Labs: WBC 10.1, Neutrophils 9.60, Na+ 128 BUN 60, Cr 2.28, GFR 20 Treatment: Rocephin 2 GM IVPB Q 24 HRS 06/13-06/15 .9NS @ 100 MLS/HR 06/12-06/15 Bladder scan Once Is there an additional diagnosis and/or clinical significance related to the above lab result/information? [ x ] UTI with cultures positive for Escherichia coli present on admission [ ] No additional diagnosis/Not clinically significant [ ] Other, please specify [ ] Unable to determine (Template Last Revised: April 2020) MTDD
--- NOTE | 2023-06-16 22:52 | P.CONS ---
History of Present Illness - Reason for Consult Consult date: 06/16/23 - History of Present Illness Patient is 83-year-old female with a past medical history significant for hypertension atrial fibrillation endometrial cancer presenting to the hospital 3 days ago for evaluation of weakness , the patient did have a few falls also noticed to have increased weakness the night before presentation to the hospital and complaining of some left leg weakness on presentation to the hospital patient was afebrile and no fever have recorded during this hospital stay patient was tachycardic but not hypotensive mildly hypoxic currently on 3 L nasal cannula oxygen patient did have a normal white count admission however it is up to 18.8 today did have elevated BUN and creatinine liver isms are normal urine was positive urine culture currently growing E. coli with sensitivities pending patient did have a chest x-ray no acute cardiopulmonary disease process did have a brain MRI no evidence of intracranial mass or acute/subacute infarct infectious disease was consulted today for possible sepsis UTI patient has tremor evaluation and really good historian she has been complaining of feeling thirsty not getting any water no meaningful history could obtain from this patient over history of any choking on the food no nausea vomiting or diarrhea reported by the nursing staff Past Medical History Past Medical History: Atrial Fibrillation, Cancer, Hypertension, Thyroid Disorder Additional Past Medical History / Comment(s): states has "lump in stomach" endometrial cancer 2017; neuropathy feet, states pre diabetic, depression History of Any Multi-Drug Resistant Organisms: None Reported Past Surgical History: Section, Cholecystectomy, Hysterectomy, Joint Replacement Additional Past Surgical History / Comment(s): R Hip replaced, cardioversion, Past Anesthesia/Blood Transfusion Reactions: No Reported Reaction Past Psychological History: Anxiety, Depression Smoking Status: Light tobacco smoker Past Alcohol Use History: None Reported Additional Past Alcohol Use History / Comment(s): started at age 15, quit 2019 Past Drug Use History: None Reported - Past Family History Mother Family Medical History: No Reported History Medications and Allergies Home Medications Medication Instructions Recorded Confirmed Type Warfarin [Coumadin] 5 mg PO SUMOTUWETHSA 03/22/19 06/14/23 History Levothyroxine Sodium 125 mcg PO DAILY 12/23/21 06/14/23 History Metoprolol Tartrate [Lopressor] 25 mg PO BID 12/23/21 06/14/23 History Warfarin [Coumadin] 2.5 mg PO FR 06/04/23 06/14/23 History Chlorthalidone [Hygroton] 25 mg PO BID 06/14/23 06/14/23 History Ibuprofen [Motrin Ib] 200 mg PO BID 06/14/23 06/14/23 History Allergies Allergy/AdvReac Type Severity Reaction Status Date / Time lisinopril Allergy Rash/Hives Verified 06/14/23 08:34 losartan Allergy Rash/Hives Verified 06/14/23 08:34 Physical Exam Vitals: Vital Signs Temp Pulse Pulse Resp BP BP BP 06/16/23 08:00 97.7 F 110 H 20 117/85 06/16/23 04:40 97.1 F L 120 H 20 93/54 06/15/23 23:15 96.2 F L 93 20 101/70 06/15/23 22:00 106 H 14 113/78 06/15/23 20:00 97 12 113/89 06/15/23 19:00 91 16 109/92 06/15/23 15:21 74 14 91/65 06/15/23 14:00 83 16 102/66 06/15/23 13:00 80 14 90/66 06/15/23 12:00 93 16 109/75 Pulse Ox 06/16/23 08:00 97 06/16/23 04:40 99 06/15/23 23:15 100 06/15/23 22:00 95 06/15/23 20:00 94 L 06/15/23 19:00 06/15/23 15:21 97 06/15/23 14:00 95 06/15/23 13:00 95 06/15/23 12:00 95 Intake and Output 06/15/23 06/16/23 06/16/23 22:59 06:59 14:59 Other: Voiding Method External Catheter External Catheter Weight 72.575 kg Results CBC & Chem 7: 06/17/23 10:57 06/17/23 10:57 Labs: Abnormal Lab Results - Last 24 Hours (Table) 06/15/23 Range/Units 19:33 PT 19.0 H (10.0-12.5) sec INR 1.9 H (<1.2) Microbiology - Last 24 Hours (Table) 06/14/23 12:15 Urine Culture - Preliminary Urine,Clean Catch Gram Neg Bacilli Assessment and Plan Plan: 1patient presented hospital with weakness which is likely multifactorial in this patient currently has been worked up for CVA stroke MRI has been negative patient did have elevated white count positive UA with urine culture growing gram-negative bacilli concerning for symptomatic urinary tract infection likely from enteric gram-negative pathogen. 2Rocephin 2 g daily to continue while waiting for the culture to finalize and a gentle IV fluid We will follow on clinical condition and cultures to further adjust medication if needed Thank you for this consultation we will follow the patient along with you Dictation was produced using [employer] dictation software. please excuse any grammatical, word or spelling errors. Time with Patient: Greater than 30
--- NOTE | 2023-06-17 11:18 | P.PN ---
Subjective Progress Note Date: 06/16/23 Patient was seen for a follow-up. Patient is keeping her eyes closed, mumbling to herself. No one in the room. States she is doing "okay". Patient is laying in the bed. Appears comfortable. No distress. Denies headache. Patient is no change, no improved. Objective - Vital Signs Vital signs: Vital Signs Temp 97.7 F 06/17/23 08:00 Pulse 61 06/17/23 08:00 Resp 18 06/17/23 08:00 BP 136/71 06/17/23 08:00 Pulse Ox 98 06/17/23 08:49 FiO2 Intake & Output 06/16/23 06/17/23 06/17/23 18:59 06:59 18:59 Intake Total 120 10 Output Total 800 500 Balance -800 -380 10 Intake: IV 20 10 Invasive Line 1 20 10 Oral 100 Output: Urine 800 500 Other: Voiding Method External Catheter External Catheter External Catheter - Exam No change. Patient is laying in the bed, mumbling. - Labs CBC & Chem 7: 06/16/23 11:30 06/16/23 11:30 Labs: Abnormal Lab Results - Last 24 Hours (Table) 06/16/23 06/16/23 06/16/23 Range/Units 11:30 11:30 11:30 WBC 18.8 H (3.8-10.6) k/uL Plt Count 97 L (150-450) k/uL Neutrophils # 17.5 H (1.3-7.7) k/uL Lymphocytes # 0.3 L (1.0-4.8) k/uL Chloride 113 H (98-107) mmol/L Carbon Dioxide 10 L (22-30) mmol/L BUN 72 H (7-17) mg/dL Creatinine 1.96 H (0.52-1.04) mg/dL Plasma Lactic Acid Get 2.4 H* (0.7-2.0) mmol/L Calcium 8.0 L (8.4-10.2) mg/dL 06/16/23 Range/Units 15:06 WBC (3.8-10.6) k/uL Plt Count (150-450) k/uL Neutrophils # (1.3-7.7) k/uL Lymphocytes # (1.0-4.8) k/uL Chloride (98-107) mmol/L Carbon Dioxide (22-30) mmol/L BUN (7-17) mg/dL Creatinine (0.52-1.04) mg/dL Plasma Lactic Acid Get 2.3 H* (0.7-2.0) mmol/L Calcium (8.4-10.2) mg/dL Microbiology - Last 24 Hours (Table) 06/14/23 12:15 Urine Culture - Final Urine,Clean Catch Escherichia coli Assessment and Plan Assessment: * Altered mental status, likely due to metabolic encephalopathy, reasons multifactorial as mentioned below * Possible stroke/TIA, manifesting with slurred speech and left-sided weakness. Patient does have left arm weakness, but associated pain, rule out mechanical versus central. Acute CVA ruled out. * Occluded right vertebral artery * Atrial fibrillation with rapid ventricular rate. * Coagulopathy with elevated INR 5.6 * Hyponatremia * Hypokalemia * Moderate to severe renal insufficiency * E. coli UTI * Frequent falls * Possible mild cognitive impairment versus delirium versus dementia * Diabetes * Hypertension * Tobacco use Plan: * MRI of the brain without contrast, revealed no evidence of intracranial mass or acute/subacute infarct. Nonspecific white matter changes, likely secondary to small vessel ischemic disease. Moderate right maxillary sinus mucosal thickening and secretions. I personally reviewed MRI agree with the findings. * 2-D echo revealed normal EF 60 to 65%. Mildly increased left ventricular wall thickness. Mildly increased posterior wall thickness. No obvious regional wall motion abnormalities. Severe right atrial dilation by visual. Normal left atrial size. Consider transesophageal echo if clinically indicated to definitively rule out intracardiac thrombus. * CTA head and neck showed: Occlusion/diminutive right vertebral artery ext ending from C5-C6 transverse processes. The left vertebral artery is dominant and patent. No evidence of dissection of the cervical internal carotid arteries or any evidence of significant stenosis at the carotid bifurcations. No evidence of intracranial high-grade stenosis or intracranial aneurysm. * Check EEG for encephalopathy, rule out any seizure tendency. * Fasting a.m. lipid panel with cholesterol 94, LDL 45, HDL 24, triglycerides 119. Lipids are well-controlled. Patient is not on any statins. * Hemoglobin A1c 6.3. * Patient has acute UTI, on ceftriaxone. * Optimize control of blood pressure. * Continue Coumadin. Target INR 2-3. Patient's INR 2.3 as of today. * Neuro checks every 4 hours. * Telemetry monitoring rule out any arrhythmia * PT, OT, speech therapy * DVT prophylaxis: On Coumadin * Recommend complete tobacco cessation
[2023-06-17 11:34] LABS: ALT 19 U/L (4-34); AST 29 U/L (14-36); African American GFR (CKD) 36 (>60 ml/min/1.73 sqM); Albumin 2.2 g/dL (3.5-5.0); Alkaline Phosphatase 105 U/L (38-126); Anion Gap 10 mmol/L; Blood Urea Nitrogen 72 mg/dL (7-17); Calcium 8.5 mg/dL (8.4-10.2); Carbon Dioxide 15 mmol/L (22-30); Chloride 114 mmol/L (98-107); Glucose 150 mg/dL (74-99); Non-African American GFR(CKD) 31 (>60 ml/min/1.73 sqM); Potassium 3.2 mmol/L (3.5-5.1); Sodium 139 mmol/L (137-145); Total Bilirubin 0.8 mg/dL (0.2-1.3)
[2023-06-17 11:36] LABS: HCT 39.2 % (34.0-46.0); HGB 12.8 gm/dL (11.4-16.0); Hypochromasia Moderate; MCH 31.4 pg (25.0-35.0); MCHC 32.6 g/dL (31.0-37.0); MCV 96.3 fL (80.0-100.0); RBC 4.07 m/uL (3.80-5.40); RDW 15.4 % (11.5-15.5); WBC 14.7 k/uL (3.8-10.6)
[2023-06-17 11:52] LABS: Platelet Count 82 k/uL (150-450)
--- NOTE | 2023-06-17 12:30 | P.PN ---
Subjective HISTORY OF PRESENT ILLNESS: 06/14/2023 The patient is an 83-year-old female who follows in the office with Dr. Ford. The patient states she has had multiple falls over the last several weeks. She states that she was not dizzy and lightheaded, that she lost her balance and fell. She was brought into the emergency room by her family for further evaluation. Cardiology has been consulted for CVA and A-fib management. DIAGNOSTICS: EKG shows atrial fibrillation Telemetry shows A-fib with heart rates in the 120s Chest x-ray shows no acute cardiopulmonary process. Suspect right rotator cuff tear CT scan of the head and neck shows right vertebral occlusion with otherwise patent vessels CT scan of the brain shows no acute process. Chronic small vessel disease Lab data WBC 10.1, hemoglobin 12.0, hematocrit 36.4, platelet 191, INR 5.6, s odium 128, potassium 3.1, BUN 60, creatinine 2.20, AST 20, ALT 13 06/15/2023 Patient examined this morning at the bedside. Patient remains in the emergency room. Patient currently denies chest pain or pressure. She denies shortness of breath. She remains in atrial fibrillation with a heart rate ranging between [id number]. She is currently on IV Cardizem at 5 mg an hour. Most recent blood pressure 110/71. 06/16/2023 Patient examined this morning. Patient is lethargic today. She does awaken to verbal stimuli. She denies any chest pain or pressure. Denies SOB. Telemetry reveals atrial fibrillation with heart rate in the low 100s. Echocardiogram completed revealing ejection fraction 60 to 65% with mild MR. MRI of the brain completed with no evidence of intracranial mass or acute/subacute infarct. INR yesterday 1.9. Per nursing, patient is unable to take her oral medications due to her lethargy. 06/17/2023 Patient is more awake today and sitting up in the chair. Patient able to take o ral medications today. No cardiac complaints. Vital signs are stable. PHYSICAL EXAM: VITAL SIGNS: Reviewed. GENERAL: Well-developed in no acute distress. NECK: Supple. No JVD or thyromegaly LUNGS: Respirations even and unlabored. Lungs essentially clear to auscultation bilaterally. HEART: Irregular rate and rhythm. S1 and S2 heard. EXTREMITIES: Normal range of motion. No clubbing or cyanosis. Peripheral pulses intact. No lower extremity edema. ASSESSMENT: Mechanical fall Persistent atrial fibrillation, on warfarin Supratherapeutic INR Possible CVA/TIA, patient with slurred speech and left-sided weakness, MRI negative Acute kidney injury History of hypertension Former nicotine dependence Frequent falls at home PLAN: Continue metoprolol 50 mg twice a day Patient is not be a good candidate for continued anticoagulation secondary to frequent falls at home. Coumadin currently remains on hold. However, will defer final decision to internal medicine. Continue telemetry monitoring Further recommendations pending patient course Nurse practitioner note has been reviewed by physician. Signing provider agrees with the documented findings, assessment, and plan of care documented by EMBALMER/FUNERAL DIRECTOR as a scribe. Objective - Vital Signs Vital signs: Vital Signs Temp 97.7 F 06/17/23 08:00 Pulse 61 06/17/23 08:00 Resp 18 06/17/23 08:00 BP 136/71 06/17/23 08:00 Pulse Ox 98 06/17/23 08:49 FiO2 Intake & Output 06/16/23 06/17/23 06/17/23 18:59 06:59 18:59 Intake Total 120 10 Output Total 800 500 Balance -800 -380 10 Intake: IV 20 10 Invasive Line 1 20 10 Oral 100 Output: Urine 800 500 Other: Voiding Method External Catheter External Catheter External Catheter - Labs CBC & Chem 7: 06/17/23 10:57 06/17/23 10:57 Labs: Abnormal Lab Results - Last 24 Hours (Table) 06/16/23 06/16/23 06/17/23 Range/Units 11:30 15:06 10:57 WBC 14.7 H (3.8-10.6) k/uL Plt Count 97 L 82 L (150-450) k/uL Neutrophils # 17.5 H (1.3-7.7) k/uL Lymphocytes # 0.3 L (1.0-4.8) k/uL Potassium (3.5-5.1) mmol/L Chloride (98-107) mmol/L Carbon Dioxide (22-30) mmol/L BUN (7-17) mg/dL Creatinine (0.52-1.04) mg/dL Glucose (74-99) mg/dL Plasma Lactic Acid Get 2.3 H* (0.7-2.0) mmol/L Total Protein (6.3-8.2) g/dL Albumin (3.5-5.0) g/dL 06/17/23 Range/Units 10:57 WBC (3.8-10.6) k/uL Plt Count (150-450) k/uL Neutrophils # (1.3-7.7) k/uL Lymphocytes # (1.0-4.8) k/uL Potassium 3.2 L (3.5-5.1) mmol/L Chloride 114 H (98-107) mmol/L Carbon Dioxide 15 L (22-30) mmol/L BUN 72 H (7-17) mg/dL Creatinine 1.53 H (0.52-1.04) mg/dL Glucose 150 H (74-99) mg/dL Plasma Lactic Acid Get (0.7-2.0) mmol/L Total Protein 5.0 L (6.3-8.2) g/dL Albumin 2.2 L (3.5-5.0) g/dL Microbiology - Last 24 Hours (Table) 06/14/23 12:15 Urine Culture - Final Urine,Clean Catch Escherichia coli
--- NOTE | 2023-06-17 12:44 | P.PN ---
Subjective Progress Note Date: 06/17/23 this is a pleasant 83 years old female with multiple medical problems Patient somewhat poor historian and information obtained from the patient and son at bedside Patient was in this facility about 10 days ago after she fell and hurt her back, she was discharge with recommendation to use some ibuprofen 1 at home over the last 2 days as per son patient was given more slurred speech or weakness on the left side although she has also limitation on the right side because of her shoulder pain Now she is more awake and she can move her left side As per son patient got frequent urinary tract infection and patient has been complaining from increased frequency of urination with some dysuria She had 2 large bowel movement yesterday with no abdominal pain or vomiting She denies chest pain or dyspnea She is mildly tachycardic from 117 Creatinine is 2.2 which is slightly above baseline with sodium 128, potassium 3.0 and INR is elevated at 5.6 EKG showing atrial fibrillation's with RVR at 125 CT of the brain is negative for acute processes CTA of the head and neck she is negative for dissection or aneurysm however 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 fib 06/14. Patient seen and examined. Blood work done this morning showed WBC 14.9, hemoglobin 12.2, sodium 133, potassium 3.7, BUN 61, creatinine 2.12, INR greater than 10 patient mumbling to herself, unable to obtain a detailed review of system. 06/15. Patient seen and examined. Patient is opening eyes, continues to be confused. Does not look in acute distress. Blood work done this morning showed WBC 18.8, hemoglobin 12.2, sodium 138, potassium 4, BUN 72, creatinine 1.96, lactate 2.4. Echocardiogram completed revealing ejection fraction 60 to 65% with mild MR MRI of the brain completed with no evidence of intracranial mass or acute/subacute infarct. 06/16. Patient seen and examined. Patient much more alert compared to yesterday, answering questions. Son at the bedside REVIEW OF SYSTEMS: Denies chest pain. Denies any shortness of breath. PHYSICAL EXAMINATION: GENERAL: The patient is alert to self HEENT: Pupils are round and equally reacting to light. EOMI. No scleral icterus. No conjunctival pallor. Normocephalic, atraumatic. No pharyngeal erythema. No thyromegaly. CARDIOVASCULAR: S1 and S2 present. No murmurs, rubs, or gallops. PULMONARY: Chest is clear to auscultation, no wheezing or crackles. ABDOMEN: Soft, nontender, nondistended, normoactive bowel sounds. No palpable organomegaly. MUSCULOSKELETAL: No joint swelling or deformity. EXTREMITIES: Venous stasis changes of lower extremities NEUROLOGICAL: Moving all extremities SKIN: No rashes. Assessment and plan Altered mental status most likely metabolic/toxic encephalopathy. Stroke felt most likely UTI with culture positive for E. coli present on admission Fall at home Coagulopathy Supratherapeutic INR Hyponatremia, hypovolemic Mild hypokalemia Acute kidney injury on chronic kidney disease stage III A. fib with RVR, on Coumadin Right rotator cuff tear. Hypothyroidism Monitor vital signs Monitor CBC Monitor CMP Continue telemetry monitoring Continue IV Cardizem Hold Coumadin for now, will discuss with family regarding continuing with that versus discontinuing secondary to increased falls Continue IV Rocephin DC fluids Echocardiogram completed revealing ejection fraction 60 to 65% with mild MR MRI of the brain completed with no evidence of intracranial mass or acute/subacute infarct. Neurology following cardiology following ID following Labs and medication were reviewed.. Continue same treatment. Continue with symptomatic treatment. Resume home medication. Monitor labs and vitals. DVT and GI prophylaxis. Further recommendations as per clinical course of the patient Dictation was produced using [employer] dictation software. please excuse any grammatical, word or spelling errors. Objective - Vital Signs Vital signs: Vital Signs Temp 97.7 F 06/17/23 08:00 Pulse 61 06/17/23 08:00 Resp 18 06/17/23 08:00 BP 136/71 06/17/23 08:00 Pulse Ox 98 06/17/23 08:49 FiO2 Intake & Output 06/16/23 06/17/23 06/17/23 18:59 06:59 18:59 Intake Total 120 10 Output Total 800 500 Balance -800 -380 10 Intake: IV 20 10 Invasive Line 1 20 10 Oral 100 Output: Urine 800 500 Other: Voiding Method External Catheter External Catheter External Catheter - Labs CBC & Chem 7: 06/17/23 10:57 06/17/23 10:57 Labs: Abnormal Lab Results - Last 24 Hours (Table) 06/16/23 06/16/23 06/16/23 Range/Units 11:30 11:30 11:30 WBC 18.8 H (3.8-10.6) k/uL Plt Count 97 L (150-450) k/uL Neutrophils # 17.5 H (1.3-7.7) k/uL Lymphocytes # 0.3 L (1.0-4.8) k/uL Chloride 113 H (98-107) mmol/L Carbon Dioxide 10 L (22-30) mmol/L BUN 72 H (7-17) mg/dL Creatinine 1.96 H (0.52-1.04) mg/dL Plasma Lactic Acid Get 2.4 H* (0.7-2.0) mmol/L Calcium 8.0 L (8.4-10.2) mg/dL 06/16/23 Range/Units 15:06 WBC (3.8-10.6) k/uL Plt Count (150-450) k/uL Neutrophils # (1.3-7.7) k/uL Lymphocytes # (1.0-4.8) k/uL Chloride (98-107) mmol/L Carbon Dioxide (22-30) mmol/L BUN (7-17) mg/dL Creatinine (0.52-1.04) mg/dL Plasma Lactic Acid Get 2.3 H* (0.7-2.0) mmol/L Calcium (8.4-10.2) mg/dL Microbiology - Last 24 Hours (Table) 06/14/23 12:15 Urine Culture - Final Urine,Clean Catch Escherichia coli
[2023-06-17] MEDS: POTASSIUM CHLORIDE ER 20 MEQ TAB.ER PO STA (13:11)
[2023-06-17 13:26] VITALS: BMI 25.0
--- NOTE | 2023-06-17 23:18 | EEG ---
ELECTROENCEPHALOGRAM REPORT PREAMBLE: This is an 83-year-old female with suspected stroke, but has persistent confusion and disorientation. This study is performed to evaluate for encephalopathy, rule out any epileptiform activity. EEG FINDINGS: This is a 21-channel digital EEG recorded with video component, utilizing 10/20 international system with referential and bipolar montages. The recording consists of diffuse moderate voltage activity in 6 to 7 hertz theta, intermixed with some 2-3 hertz delta activity seen in bihemispheric region. There is some myogenic activity in the frontal and temporal region bilaterally. Some drowsiness and stage 2 sleep was seen with presence of sleep spindles. Some sporadic triphasic appearing waves were seen predominantly in frontal region. No focal or generalized epileptiform activity was seen. IMPRESSION: This is an abnormal EEG due to background slowing of moderate degree, suggestive of generalized cerebral dysfunction as can be seen with toxic metabolic encephalopathy or related to diffuse structural brain abnormality. Clinical correlation is recommended. Triphasic waves seen sporadically also suggest underlying encephalopathy. No epileptiform activity was seen. MMMAXL / IJN: [id number] /
--- NOTE | 2023-06-18 08:57 | P.PN ---
Subjective Progress Note Date: 06/17/23 Principal diagnosis: Reason for follow-up is E. coli urinary tract infection Patient is 83-year-old female with a past medical history significant for hypertension atrial fibrillation endometrial cancer presenting to the hospital for evaluation of weakness and falls did have a positive UA concerning for urinary tract infection prompting this consultation. On today's evaluation that is 06/17/2023, Patient is more awake and alert today, patient is afebrile patient is currently on room air and denies having any shortness of breath, the patient denies any chest pain or cough, the patient denies any nausea vomiting did not have any abdominal pain and no diarrhea. Patient white count is down to 14.7, creatinine is 1.53 urine is growing E. coli Objective - Vital Signs Vital signs: Vital Signs Temp 97.7 F 06/17/23 08:00 Pulse 126 H 06/17/23 12:32 Resp 18 06/17/23 12:32 BP 129/70 06/17/23 12:00 Pulse Ox 97 06/17/23 12:00 FiO2 Intake & Output 06/16/23 06/17/23 06/17/23 18:59 06:59 18:59 Intake Total 120 20 Output Total 800 500 Balance -800 -380 20 Intake: IV 20 20 Invasive Line 1 20 20 Oral 100 Output: Urine 800 500 Other: Voiding Method External Catheter External Catheter External Catheter - Exam GENERAL DESCRIPTION: An elderly female lying in bed in no distress RESPIRATORY SYSTEM: Unlabored breathing , decreased breath sounds at bases HEART: S1 S2 regular rate and rhythm , ABDOMEN: Soft , no tenderness EXTREMITIES: No edema feet - Labs CBC & Chem 7: 06/17/23 10:57 06/17/23 10:57 Labs: Abnormal Lab Results - Last 24 Hours (Table) 06/16/23 06/16/23 06/17/23 Range/Units 11:30 15:06 10:57 WBC 14.7 H (3.8-10.6) k/uL Plt Count 97 L 82 L (150-450) k/uL Neutrophils # 17.5 H (1.3-7.7) k/uL Lymphocytes # 0.3 L (1.0-4.8) k/uL Potassium (3.5-5.1) mmol/L Chloride (98-107) mmol/L Carbon Dioxide (22-30) mmol/L BUN (7-17) mg/dL Creatinine (0.52-1.04) mg/dL Glucose (74-99) mg/dL Plasma Lactic Acid Get 2.3 H* (0.7-2.0) mmol/L Total Protein (6.3-8.2) g/dL Albumin (3.5-5.0) g/dL 06/17/23 Range/Units 10:57 WBC (3.8-10.6) k/uL Plt Count (150-450) k/uL Neutrophils # (1.3-7.7) k/uL Lymphocytes # (1.0-4.8) k/uL Potassium 3.2 L (3.5-5.1) mmol/L Chloride 114 H (98-107) mmol/L Carbon Dioxide 15 L (22-30) mmol/L BUN 72 H (7-17) mg/dL Creatinine 1.53 H (0.52-1.04) mg/dL Glucose 150 H (74-99) mg/dL Plasma Lactic Acid Get (0.7-2.0) mmol/L Total Protein 5.0 L (6.3-8.2) g/dL Albumin 2.2 L (3.5-5.0) g/dL Microbiology - Last 24 Hours (Table) 06/14/23 12:15 Urine Culture - Final Urine,Clean Catch Escherichia coli Assessment and Plan (1) E. coli UTI Current Visit: Yes Status: Acute Code(s): N39.0 - URINARY TRACT INFECTION, SITE NOT SPECIFIED; B96.20 - UNSP ESCHERICHIA COLI THE CAUSE OF DISEASES [facility]ASSD [facility] SNOM[facility] Code(s): 139116218 Plan: 1patient presented hospital with weakness which is likely multifactorial in this patient currently has been worked up for CVA stroke MRI has been negative patient did have elevated white count positive UA with urine culture growing gram-negative bacilli concerning for symptomatic urinary tract infection likely from enteric gram-negative pathogen. 2patient urine has been finalized with E. coli that is sensitive to Rocephin patient to continue with Rocephin 2 g daily finishing therapy with oral antibiotics on discharge Dictation was produced using [employer] dictation software. please excuse any grammatical, word or spelling errors. Time with Patient: Less than 30
[2023-06-18 11:36] LABS: HCT 37.7 % (34.0-46.0); HGB 11.9 gm/dL (11.4-16.0); MCH 29.7 pg (25.0-35.0); MCHC 31.5 g/dL (31.0-37.0); MCV 94.3 fL (80.0-100.0); Mean Platelet Volume 9.7; Platelet Count 89 k/uL (150-450); RBC 3.99 m/uL (3.80-5.40); RDW 15.2 % (11.5-15.5); WBC 14.3 k/uL (3.8-10.6)
--- NOTE | 2023-06-18 12:03 | P.PN ---
Subjective Progress Note Date: 06/17/23 Patient was seen for a follow-up. Patient's son was also present. He believes patient is about 60 to 75% back to normal. Patient denies any headache. Patient is sitting comfortably in the recliner. She is talking much more clearly. Objective - Vital Signs Vital signs: Vital Signs Temp 97.8 F 06/18/23 08:15 Pulse 105 H 06/18/23 08:15 Resp 18 06/18/23 08:15 BP 116/72 06/18/23 08:15 Pulse Ox 97 06/18/23 08:15 FiO2 Intake & Output 06/17/23 06/18/23 06/18/23 18:59 06:59 18:59 Intake Total 140 0 Output Total 500 Balance -360 0 Weight 72.575 kg Intake: IV 20 Invasive Line 1 20 Oral 120 0 Output: Urine 500 Other: Voiding Method External Catheter External Catheter External Catheter - Exam Patient today has much improved. She is sitting comfortably in the recliner, she is talking much more clearly and more intelligibly. Patient's son was also present. He believes she is about 60 to 75% back to normal. - Labs CBC & Chem 7: 06/18/23 10:27 06/17/23 10:57 Labs: Abnormal Lab Results - Last 24 Hours (Table) 06/18/23 Range/Units 10:27 WBC 14.3 H (3.8-10.6) k/uL Plt Count 89 L (150-450) k/uL Assessment and Plan Assessment: * Altered mental status, likely due to metabolic encephalopathy, reasons multifactorial as mentioned below * CVA/stroke ruled out. * Occluded right vertebral artery * Atrial fibrillation with rapid ventricular rate. * Coagulopathy with elevated INR 5.6 * Hyponatremia * Hypokalemia * Moderate to severe renal insufficiency * E. coli UTI * Frequent falls * Possible mild cognitive impairment versus delirium versus dementia * Diabetes * Hypertension * Tobacco use Plan: * MRI of the brain without contrast, revealed no evidence of intracranial mass or acute/subacute infarct. Nonspecific white matter changes, likely secondary to small vessel ischemic disease. Moderate right maxillary sinus mucosal thickening and secretions. I personally reviewed MRI agree with the findings. * 2-D echo revealed normal EF 60 to 65%. Mildly increased left ventricular wall thickness. Mildly increased posterior wall thickness. No obvious regional wall motion abnormalities. Severe right atrial dilation by visual. Normal left atrial size. Consider transesophageal echo if clinically indicated to definitively rule out intracardiac thrombus. * CTA head and neck showed: Occlusion/diminutive right vertebral artery extending from C5-C6 transverse processes. The left vertebral artery is dominant and patent. No evidence of dissection of the cervical internal carotid arteries or any evidence of significant stenosis at the carotid bifurcations. No evidence of intracranial high-grade stenosis or intracranial aneurysm. * EEG was abnormal due to background slowing of moderate degree, suggestive of generalized cerebral dysfunction as can be seen with toxic metabolic encephalopathy or related to diffuse structural brain abnormality. Clinical correlation is recommended. Triphasic waves seen sporadically also suggest underlying encephalopathy. No epileptiform activity was seen. * Fasting a.m. lipid panel with cholesterol 94, LDL 45, HDL 24, triglycerides 119. Lipids are well-controlled. Patient is not on any statins. * Hemoglobin A1c 6.3. * Patient has acute E. coli UTI, on ceftriaxone. Her mentation has much improved. * Optimize control of blood pressure. * Continue Coumadin. Target INR 2-3. Patient's INR 1.5 as of today. Cardiology believes patient not a candidate for warfarin because of recurrent falls. Need to discuss with the family regarding risks and benefits of anticoagulation. Otherwise start aspirin regimen. * Neuro checks every 4 hours. * Telemetry monitoring rule out any arrhythmia * PT, OT, speech therapy * DVT prophylaxis: On Coumadin * Recommend complete tobacco cessation
[2023-06-18 12:06] LABS: ALT 18 U/L (4-34); AST 21 U/L (14-36); African American GFR (CKD) 36 (>60 ml/min/1.73 sqM); Albumin 2.3 g/dL (3.5-5.0); Alkaline Phosphatase 103 U/L (38-126); Anion Gap 8 mmol/L; Blood Urea Nitrogen 73 mg/dL (7-17); Carbon Dioxide 20 mmol/L (22-30); Chloride 115 mmol/L (98-107); Glucose 145 mg/dL (74-99); Non-African American GFR(CKD) 31 (>60 ml/min/1.73 sqM); Potassium 3.4 mmol/L (3.5-5.1); Sodium 143 mmol/L (137-145); Total Bilirubin 0.7 mg/dL (0.2-1.3); Total Protein 5.3 g/dL (6.3-8.2)
[2023-06-18] MEDS ORDERED: Potassium Replacement Protocol 1 EACH MISC MISCELLANE PRN (12:44)
--- NOTE | 2023-06-18 12:55 | P.PN ---
Subjective HISTORY OF PRESENT ILLNESS: 06/14/2023 The patient is an 83-year-old female who follows in the office with Dr. Ford. The patient states she has had multiple falls over the last several weeks. She states that she was not dizzy and lightheaded, that she lost her balance and fell. She was brought into the emergency room by her family for further evaluation. Cardiology has been consulted for CVA and A-fib management. DIAGNOSTICS: EKG shows atrial fibrillation Telemetry shows A-fib with heart rates in the 120s Chest x-ray shows no acute cardiopulmonary process. Suspect right rotator cuff tear CT scan of the head and neck shows right vertebral occlusion with otherwise patent vessels CT scan of the brain shows no acute process. Chronic small vessel disease Lab data WBC 10.1, hemoglobin 12.0, hematocrit 36.4, platelet 191, INR 5.6, s odium 128, potassium 3.1, BUN 60, creatinine 2.20, AST 20, ALT 13 06/15/2023 Patient examined this morning at the bedside. Patient remains in the emergency room. Patient currently denies chest pain or pressure. She denies shortness of breath. She remains in atrial fibrillation with a heart rate ranging between [id number]. She is currently on IV Cardizem at 5 mg an hour. Most recent blood pressure 110/71. 06/16/2023 Patient examined this morning. Patient is lethargic today. She does awaken to verbal stimuli. She denies any chest pain or pressure. Denies SOB. Telemetry reveals atrial fibrillation with heart rate in the low 100s. Echocardiogram completed revealing ejection fraction 60 to 65% with mild MR. MRI of the brain completed with no evidence of intracranial mass or acute/subacute infarct. INR yesterday 1.9. Per nursing, patient is unable to take her oral medications due to her lethargy. 06/17/2023 Patient is more awake today and sitting up in the chair. Patient able to take o ral medications today. No cardiac complaints. Vital signs are stable. 06/18/2023 Patient examined this morning at the bedside. There is no family present. Patient currently denies chest pain or pressure. She denies shortness of breath. Telemetry reveals atrial fibrillation with heart rate in the low 100s. PHYSICAL EXAM: VITAL SIGNS: Reviewed. GENERAL: Well-developed in no acute distress. NECK: Supple. No JVD or thyromegaly LUNGS: Respirations even and unlabored. Lungs essentially clear to auscultation bilaterally. HEART: Irregular rate and rhythm. S1 and S2 heard. EXTREMITIES: Normal range of motion. No clubbing or cyanosis. Peripheral pulses intact. No lower extremity edema. ASSESSMENT: Mechanical fall Persistent atrial fibrillation, on warfarin Supratherapeutic INR Possible CVA/TIA, patient with slurred speech and left-sided weakness, MRI negative Acute kidney injury History of hypertension Former nicotine dependence Frequent falls at home PLAN: Increase metoprolol 50 mg 3 times a day for optimal heart rate control Patient is not be a good candidate for continued anticoagulation secondary to frequent falls at home. Coumadin currently remains on hold. However, will defer final decision to internal medicine. Continue telemetry monitoring [facility] We will follow on an as-needed basis. We will sign off. Please reconsult if needed. Nurse practitioner note has been reviewed by physician. Signing provider agrees with the documented findings, assessment, and plan of care documented by TEAM AUTOMOBILE ASSEMBLER as a scribe. Objective - Vital Signs Vital signs: Vital Signs Temp 97.4 F L 06/18/23 12:00 Pulse 73 06/18/23 12:00 Resp 18 06/18/23 12:00 BP 132/95 06/18/23 12:00 Pulse Ox 98 06/18/23 12:00 FiO2 Intake & Output 06/17/23 06/18/23 06/18/23 18:59 06:59 18:59 Intake Total 140 0 Output Total 500 Balance -360 0 Weight 72.575 kg Intake: IV 20 Invasive Line 1 20 Oral 120 0 Output: Urine 500 Other: Voiding Method External Catheter External Catheter External Catheter - Labs CBC & Chem 7: 06/18/23 10:27 06/18/23 10:27 Labs: Abnormal Lab Results - Last 24 Hours (Table) 06/18/23 06/18/23 Range/Units 10:27 10:27 WBC 14.3 H (3.8-10.6) k/uL Plt Count 89 L (150-450) k/uL Potassium 3.4 L (3.5-5.1) mmol/L Chloride 115 H (98-107) mmol/L Carbon Dioxide 20 L (22-30) mmol/L BUN 73 H (7-17) mg/dL Creatinine 1.52 H (0.52-1.04) mg/dL Glucose 145 H (74-99) mg/dL Total Protein 5.3 L (6.3-8.2) g/dL Albumin 2.3 L (3.5-5.0) g/dL
--- NOTE | 2023-06-18 13:00 | P.PN ---
Subjective Progress Note Date: 06/18/23 this is a pleasant 83 years old female with multiple medical problems Patient somewhat poor historian and information obtained from the patient and son at bedside Patient was in this facility about 10 days ago after she fell and hurt her back, she was discharge with recommendation to use some ibuprofen 1 at home over the last 2 days as per son patient was given more slurred speech or weakness on the left side although she has also limitation on the right side because of her shoulder pain Now she is more awake and she can move her left side As per son patient got frequent urinary tract infection and patient has been complaining from increased frequency of urination with some dysuria She had 2 large bowel movement yesterday with no abdominal pain or vomiting She denies chest pain or dyspnea She is mildly tachycardic from 117 Creatinine is 2.2 which is slightly above baseline with sodium 128, potassium 3.0 and INR is elevated at 5.6 EKG showing atrial fibrillation's with RVR at 125 CT of the brain is negative for acute processes CTA of the head and neck she is negative for dissection or aneurysm however 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 fib 06/14. Patient seen and examined. Blood work done this morning showed WBC 14.9, hemoglobin 12.2, sodium 133, potassium 3.7, BUN 61, creatinine 2.12, INR greater than 10 patient mumbling to herself, unable to obtain a detailed review of system. 06/15. Patient seen and examined. Patient is opening eyes, continues to be confused. Does not look in acute distress. Blood work done this morning showed WBC 18.8, hemoglobin 12.2, sodium 138, potassium 4, BUN 72, creatinine 1.96, lactate 2.4. Echocardiogram completed revealing ejection fraction 60 to 65% with mild MR MRI of the brain completed with no evidence of intracranial mass or acute/subacute infarct. 06/16. Patient seen and examined. Patient much more alert compared to yesterday, answering questions. Son at the bedside 06/17. Patient seen and examined. Blood work done this morning showed WBC 14.3, hemoglobin 9.9, sodium 143, potassium 3.4, BUN 73, creatinine 1.52. Had a long discussion with patient's son Harley and patient's son Ward who is the DPOA (cell phone [phone], regarding concerns about the patient being on Coumadin keeping in mind her frailty and risk of falling could pose her to have trauma to the head resulting in brain bleed, explained to her that patient will be at risk of having a stroke if she is off the Coumadin but at this time risks outweigh the benefits of her being on Coumadin. Explained to them that we will put her on baby aspirin for now, all the questions were answered and they were agreeable to make the switch and to discontinue Coumadin for now. REVIEW OF SYSTEMS: Denies chest pain. Denies any shortness of breath. PHYSICAL EXAMINATION: GENERAL: The patient is alert to self HEENT: Pupils are round and equally reacting to light. EOMI. No scleral icterus. No conjunctival pallor. Normocephalic, atraumatic. No pharyngeal erythema. No th yromegaly. CARDIOVASCULAR: S1 and S2 present. No murmurs, rubs, or gallops. PULMONARY: Chest is clear to auscultation, no wheezing or crackles. ABDOMEN: Soft, nontender, nondistended, normoactive bowel sounds. No palpable organomegaly. MUSCULOSKELETAL: No joint swelling or deformity. EXTREMITIES: Venous stasis changes of lower extremities NEUROLOGICAL: Moving all extremities SKIN: No rashes. Assessment and plan Altered mental status most likely metabolic/toxic encephalopathy. Stroke felt most likely UTI with culture positive for E. coli present on admission Fall at home Coagulopathy Supratherapeutic INR Hyponatremia, hypovolemic Mild hypokalemia Acute kidney injury on chronic kidney disease stage III A. fib with RVR, on Coumadin Right rotator cuff tear. Hypothyroidism Monitor vital signs Monitor CBC Monitor CMP Continue telemetry monitoring Continue Lopressor Continue IV Rocephin Echocardiogram completed revealing ejection fraction 60 to 65% with mild MR MRI of the brain completed with no evidence of intracranial mass or acute/subacute infarct. Neurology following cardiology following ID following Had a long discussion with patient's son Harley and patient's son Ward who is the DPOA (cell phone [phone], regarding concerns about the patient being on Coumadin keeping in mind her frailty and risk of falling could pose her to have trauma to the head resulting in brain bleed, explained to her that patient will be at risk of having a stroke if she is off the Coumadin but at this time risks outweigh the benefits of her being on Coumadin. Explained to them that we will put her on baby aspirin for now, all the questions were answered and they were agreeable to make the switch and to discontinue Coumadin for now. Labs and medication were reviewed.. Continue same treatment. Continue with symptomatic treatment. Resume home medication. Monitor labs and vitals. DVT and GI prophylaxis. Further recommendations as per clinical course of the patient Dictation was produced using [employer] dictation software. please excuse any grammatical, word or spelling errors. Objective - Vital Signs Vital signs: Vital Signs Temp 97.8 F 06/18/23 08:15 Pulse 105 H 06/18/23 08:15 Resp 18 06/18/23 08:15 BP 116/72 06/18/23 08:15 Pulse Ox 97 06/18/23 08:15 FiO2 Intake & Output 06/17/23 06/18/23 06/18/23 18:59 06:59 18:59 Intake Total 140 0 Output Total 500 Balance -360 0 Weight 72.575 kg Intake: IV 20 Invasive Line 1 20 Oral 120 0 Output: Urine 500 Other: Voiding Method External Catheter External Catheter External Catheter - Labs CBC & Chem 7: 06/18/23 10:27 06/18/23 10:27 Labs: Abnormal Lab Results - Last 24 Hours (Table) 06/18/23 06/18/23 Range/Units 10:27 10:27 WBC 14.3 H (3.8-10.6) k/uL Plt Count 89 L (150-450) k/uL Potassium 3.4 L (3.5-5.1) mmol/L Chloride 115 H (98-107) mmol/L Carbon Dioxide 20 L (22-30) mmol/L BUN 73 H (7-17) mg/dL Creatinine 1.52 H (0.52-1.04) mg/dL Glucose 145 H (74-99) mg/dL Total Protein 5.3 L (6.3-8.2) g/dL Albumin 2.3 L (3.5-5.0) g/dL
--- NOTE | 2023-06-18 14:59 | P.PN ---
Subjective Progress Note Date: 06/18/23 Principal diagnosis: Reason for follow-up is E. coli urinary tract infection Patient is 83-year-old female with a past medical history significant for hypertension atrial fibrillation endometrial cancer presenting to the hospital for evaluation of weakness and falls did have a positive UA concerning for urinary tract infection prompting this consultation. On today's evaluation that is 06/18/2023, patient has been afebrile, patient is breathing comfortably and is currently on room air, patient is slightly sleepy but arousable denies any chest pain or cough no vomiting or diarrhea has been reported by the nursing staff. Patient white count is 14.3, creatinine is 1.52 urine is growing E. coli that is a sensitive pathogen Objective - Vital Signs Vital signs: Vital Signs Temp 97.4 F L 06/18/23 12:00 Pulse 73 06/18/23 12:00 Resp 18 06/18/23 12:00 BP 132/95 06/18/23 12:00 Pulse Ox 98 06/18/23 12:00 FiO2 Intake & Output 06/17/23 06/18/23 06/18/23 18:59 06:59 18:59 Intake Total 140 0 Output Total 500 Balance -360 0 Weight 72.575 kg Intake: IV 20 Invasive Line 1 20 Oral 120 0 Output: Urine 500 Other: Voiding Method External Catheter External Catheter External Catheter - Exam GENERAL DESCRIPTION: An elderly female lying in bed in no distress RESPIRATORY SYSTEM: Unlabored breathing , decreased breath sounds at bases HEART: S1 S2 regular rate and rhythm , ABDOMEN: Soft , no tenderness EXTREMITIES: No edema feet - Labs CBC & Chem 7: 06/18/23 10:27 06/18/23 10:27 Labs: Abnormal Lab Results - Last 24 Hours (Table) 06/18/23 06/18/23 Range/Units 10:27 10:27 WBC 14.3 H (3.8-10.6) k/uL Plt Count 89 L (150-450) k/uL Potassium 3.4 L (3.5-5.1) mmol/L Chloride 115 H (98-107) mmol/L Carbon Dioxide 20 L (22-30) mmol/L BUN 73 H (7-17) mg/dL Creatinine 1.52 H (0.52-1.04) mg/dL Glucose 145 H (74-99) mg/dL Total Protein 5.3 L (6.3-8.2) g/dL Albumin 2.3 L (3.5-5.0) g/dL Assessment and Plan (1) E. coli UTI Current Visit: Yes Status: Acute Code(s): N39.0 - URINARY TRACT INFECTION, SITE NOT SPECIFIED; B96.20 - UNSP ESCHERICHIA COLI THE CAUSE OF DISEASES CLASSD [facility] SNOMED Code(s): 928417991 Plan: 1patient presented hospital with weakness which is likely multifactorial in this patient currently has been worked up for CVA stroke MRI has been negative patient did have elevated white count positive UA with urine culture growing gram-negative bacilli concerning for symptomatic urinary tract infection likely from enteric gram-negative pathogen. 2patient urine has been finalized with E. coli that is sensitive to Rocephin 3-patient to continue with Rocephin 2 g daily while inpatient and monitor clinical course closely Son at the bedside questions answered Dictation was produced using [employer] dictation software. please excuse any grammatical, word or spelling errors. Time with Patient: Less than 30
[2023-06-18] MEDS: POTASSIUM BICARBONATE/CIT AC 20 MEQ TABLET.EFF PO SCH (15:45)
[2023-06-18] MEDS: METOPROLOL TARTRATE 50 MG TAB PO SCH (16:46)
[2023-06-18] MEDS: ASPIRIN 81 MG PO STA (22:48)
[2023-06-19] MEDS: ASPIRIN 81 MG PO SCH (09:09)
[2023-06-19] MEDS: METOPROLOL TARTRATE 25 MG TAB PO SCH (09:09)
--- NOTE | 2023-06-19 11:28 | P.PN ---
Subjective Progress Note Date: 06/18/23 Patient was seen for a follow-up. Patient states she is feeling okay. She is otherwise somnolent. Detailed testing deferred. Objective - Vital Signs Vital signs: Vital Signs Temp 97.7 F 06/18/23 16:00 Pulse 115 H 06/18/23 16:00 Resp 18 06/18/23 16:00 BP 113/75 06/18/23 16:00 Pulse Ox 99 06/18/23 16:00 FiO2 Intake & Output 06/17/23 06/18/23 06/18/23 18:59 06:59 18:59 Intake Total 140 0 Output Total 500 600 Balance -360 -600 Weight 72.575 kg Intake: IV 20 Invasive Line 1 20 Oral 120 0 Output: Urine 500 600 Other: Voiding Method External Catheter External Catheter External Catheter - Exam Patient is asleep at this time. Detailed testing deferred. Patient's son has mentioned yesterday that she is about 60 to 75% back to normal. - Labs CBC & Chem 7: 06/18/23 10:27 06/18/23 10:27 Labs: Abnormal Lab Results - Last 24 Hours (Table) 06/18/23 06/18/23 Range/Units 10:27 10:27 WBC 14.3 H (3.8-10.6) k/uL Plt Count 89 L (150-450) k/uL Potassium 3.4 L (3.5-5.1) mmol/L Chloride 115 H (98-107) mmol/L Carbon Dioxide 20 L (22-30) mmol/L BUN 73 H (7-17) mg/dL Creatinine 1.52 H (0.52-1.04) mg/dL Glucose 145 H (74-99) mg/dL Total Protein 5.3 L (6.3-8.2) g/dL Albumin 2.3 L (3.5-5.0) g/dL Assessment and Plan Assessment: * Altered mental status, likely due to metabolic encephalopathy, reasons multifactorial as mentioned below * CVA/stroke ruled out. * Occluded right vertebral artery * Atrial fibrillation with rapid ventricular rate. * Coagulopathy with elevated INR 5.6 * Hyponatremia * Hypokalemia * Moderate to severe renal insufficiency * E. coli UTI * Frequent falls * Possible mild cognitive impairment versus delirium versus dementia * Diabetes * Hypertension * Tobacco use Plan: * MRI of the brain without contrast, revealed no evidence of intracranial mass or acute/subacute infarct. Nonspecific white matter changes, likely secondary to small vessel ischemic disease. Moderate right maxillary sinus mucosal thickening and secretions. I personally reviewed MRI agree with the findings. * 2-D echo revealed normal EF 60 to 65%. Mildly increased left ventricular wall thickness. Mildly increased posterior wall thickness. No obvious regional wall motion abnormalities. Severe right atrial dilation by visual. Normal left atrial size. Consider transesophageal echo if clinically indicated to definitively rule out intracardiac thrombus. * CTA head and neck showed: Occlusion/diminutive right vertebral artery extending from C5-C6 transverse processes. The left vertebral artery is dominant and patent. No evidence of dissection of the cervical internal carotid arteries or any evidence of significant stenosis at the carotid bifurcations. No evidence of intracranial high-grade stenosis or intracranial aneurysm. * EEG was abnormal due to background slowing of moderate degree, suggestive of generalized cerebral dysfunction as can be seen with toxic metabolic ence phalopathy or related to diffuse structural brain abnormality. Clinical correlation is recommended. Triphasic waves seen sporadically also suggest underlying encephalopathy. No epileptiform activity was seen. * Fasting a.m. lipid panel with cholesterol 94, LDL 45, HDL 24, triglycerides 119. Lipids are well-controlled. Patient is not on any statins. * Hemoglobin A1c 6.3. * Patient has acute E. coli UTI, on ceftriaxone. Her mentation has much improved. * Optimize control of blood pressure. * Patient used to be on Coumadin. Cardiology believes patient not a candidate f or warfarin because of recurrent falls. Primary team discussed with patient's family, and decided to stop anticoagulation because of fall risk. Patient started on aspirin 81 mg daily. We will load with aspirin 324 mg x 1 dose today. * Neuro checks every 4 hours. * Telemetry monitoring rule out any arrhythmia * PT, OT, speech therapy * DVT prophylaxis: On Coumadin * Recommend complete tobacco cessation * Neurologically clear, when cleared by ID.
--- NOTE | 2023-06-19 13:12 | P.PN ---
Subjective Progress Note Date: 06/19/23 this is a pleasant 83 years old female with multiple medical problems Patient somewhat poor historian and information obtained from the patient and son at bedside Patient was in this facility about 10 days ago after she fell and hurt her back, she was discharge with recommendation to use some ibuprofen 1 at home over the last 2 days as per son patient was given more slurred speech or weakness on the left side although she has also limitation on the right side because of her shoulder pain Now she is more awake and she can move her left side As per son patient got frequent urinary tract infection and patient has been complaining from increased frequency of urination with some dysuria She had 2 large bowel movement yesterday with no abdominal pain or vomiting She denies chest pain or dyspnea She is mildly tachycardic from 117 Creatinine is 2.2 which is slightly above baseline with sodium 128, potassium 3.0 and INR is elevated at 5.6 EKG showing atrial fibrillation's with RVR at 125 CT of the brain is negative for acute processes CTA of the head and neck she is negative for dissection or aneurysm however 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 fib 06/14. Patient seen and examined. Blood work done this morning showed WBC 14.9, hemoglobin 12.2, sodium 133, potassium 3.7, BUN 61, creatinine 2.12, INR greater than 10 patient mumbling to herself, unable to obtain a detailed review of system. 06/15. Patient seen and examined. Patient is opening eyes, continues to be confused. Does not look in acute distress. Blood work done this morning showed WBC 18.8, hemoglobin 12.2, sodium 138, potassium 4, BUN 72, creatinine 1.96, lactate 2.4. Echocardiogram completed revealing ejection fraction 60 to 65% with mild MR MRI of the brain completed with no evidence of intracranial mass or acute/subacute infarct. 06/16. Patient seen and examined. Patient much more alert compared to yesterday, answering questions. Son at the bedside 06/17. Patient seen and examined. Blood work done this morning showed WBC 14.3, hemoglobin 9.9, sodium 143, potassium 3.4, BUN 73, creatinine 1.52. Had a long discussion with patient's son Harley and patient's son Ward who is the DPOA (cell phone [phone], regarding concerns about the patient being on Coumadin keeping in mind her frailty and risk of falling could pose her to have trauma to the head resulting in brain bleed, explained to her that patient will be at risk of having a stroke if she is off the Coumadin but at this time risks outweigh the benefits of her being on Coumadin. Explained to them that we will put her on baby aspirin for now, all the questions were answered and they were agreeable to make the switch and to discontinue Coumadin for now. 06/18. Patient seen and examined. Complaining of difficulty in swallowing. Swish and swallow ordered. Patient is alert, following commands REVIEW OF SYSTEMS: Denies chest pain. Denies any shortness of breath. PHYSICAL EXAMINATION: GENERAL: The patient is alert to self HEENT: Pupils are round and equally reacting to light. EOMI. No scleral icterus. No conjunctival pallor. Normocephalic, atraumatic. No pharyngeal erythema. No thyromegaly. CARDIOVASCULAR: S1 and S2 present. No murmurs, rubs, or gallops. PULMONARY: Chest is clear to auscultation, no wheezing or crackles. ABDOMEN: Soft, nontender, nondistended, normoactive bowel sounds. No palpable organomegaly. MUSCULOSKELETAL: No joint swelling or deformity. EXTREMITIES: Venous stasis changes of lower extremities NEUROLOGICAL: Moving all extremities SKIN: No rashes. Assessment and plan Altered mental status most likely metabolic/toxic encephalopathy. Stroke ruled out Oropharyngeal candidiasis UTI with culture positive for E. coli present on admission Fall at home Coagulopathy Supratherapeutic INR Hyponatremia, hypovolemic Mild hypokalemia Acute kidney injury on chronic kidney disease stage III A. fib with RVR, on Coumadin Right rotator cuff tear. Hypothyroidism Monitor vital signs Monitor CBC Monitor CMP Continue telemetry monitoring Continue Lopressor Continue IV Rocephin Added swish and swallow Echocardiogram completed revealing ejection fraction 60 to 65% with mild MR MRI of the brain completed with no evidence of intracranial mass or acute/subacute infarct. Neurology following cardiology following ID following PT and OT following Speech following Labs and medication were reviewed.. Continue same treatment. Continue with symptomatic treatment. Resume home medication. Monitor labs and vitals. DVT and GI prophylaxis. Further recommendations as per clinical course of the patient Dictation was produced using [employer] dictation software. please excuse any grammatical, word or spelling errors. Objective - Vital Signs Vital signs: Vital Signs Temp 97.6 F 06/19/23 09:05 Pulse 114 H 06/19/23 09:05 Resp 16 06/19/23 09:05 BP 127/76 06/19/23 09:05 Pulse Ox 93 L 06/19/23 09:05 FiO2 Intake & Output 06/18/23 06/19/23 06/19/23 18:59 06:59 18:59 Intake Total 480 200 Output Total 600 1050 Balance -120 -850 Intake: Oral 480 200 Output: Urine 600 1050 Other: Voiding Method External Catheter External Catheter External Catheter - Labs CBC & Chem 7: 06/18/23 10:27 06/18/23 10:27
--- NOTE | 2023-06-19 15:31 | P.PN ---
Subjective Progress Note Date: 06/19/23 Principal diagnosis: Reason for follow-up is E. coli urinary tract infection Patient is 83-year-old female with a past medical history significant for hypertension atrial fibrillation endometrial cancer presenting to the hospital for evaluation of weakness and falls did have a positive UA concerning for urinary tract infection prompting this consultation. On today's evaluation that is 06/19/2023,the patient denies any fever or any chills, patient is breathing comfortably on room air, the patient sleepy but arousable is breathing comfortably denies any chest pain or cough no abdominal pain and no diarrhea has been reported. No new labs has been repeated today urine with an E. coli Objective - Vital Signs Vital signs: Vital Signs Temp 98.1 F 06/19/23 07:46 Pulse 84 06/19/23 07:46 Resp 16 06/19/23 07:46 BP 134/86 06/19/23 07:46 Pulse Ox 97 06/19/23 07:46 FiO2 Intake & Output 06/18/23 06/19/23 06/19/23 18:59 06:59 18:59 Intake Total 480 200 Output Total 600 1050 Balance -120 -850 Intake: Oral 480 200 Output: Urine 600 1050 Other: Voiding Method External Catheter External Catheter - Exam GENERAL DESCRIPTION: An elderly female lying in bed in no distress RESPIRATORY SYSTEM: Unlabored breathing , decreased breath sounds at bases HEART: S1 S2 regular rate and rhythm , ABDOMEN: Soft , no tenderness EXTREMITIES: No edema feet - Labs CBC & Chem 7: 06/18/23 10:27 06/18/23 10:27 Labs: Abnormal Lab Results - Last 24 Hours (Table) 06/18/23 06/18/23 Range/Units 10:27 10:27 WBC 14.3 H (3.8-10.6) k/uL Plt Count 89 L (150-450) k/uL Potassium 3.4 L (3.5-5.1) mmol/L Chloride 115 H (98-107) mmol/L Carbon Dioxide 20 L (22-30) mmol/L BUN 73 H (7-17) mg/dL Creatinine 1.52 H (0.52-1.04) mg/dL Glucose 145 H (74-99) mg/dL Total Protein 5.3 L (6.3-8.2) g/dL Albumin 2.3 L (3.5-5.0) g/dL Assessment and Plan (1) E. coli UTI Current Visit: Yes Status: Acute Code(s): N39.0 - URINARY TRACT INFECTION, SITE NOT SPECIFIED; B96.20 - UNSP ESCHERICHIA COLI THE CAUSE OF DISEASES CLASSD [facility] SNOMED Code(s): 986243935 Plan: 1patient presented hospital with weakness which is likely multifactorial in this patient currently has been worked up for CVA stroke MRI has been negative patient did have elevated white count positive UA with urine culture growing gram-negative bacilli concerning for symptomatic urinary tract infection likely from enteric gram-negative pathogen. 2patient urine has been finalized with E. coli that is sensitive to Rocephin 3-patient did have some clinical improvement and will continue with Rocephin 2 g daily while inpatient plan to finish therapy with oral antibiotics Dictation was produced using [employer] dictation software. please excuse any gram matical, word or spelling errors. Time with Patient: Less than 30
[2023-06-19] MEDS: NYSTATIN 100,000 UNIT/ML SUSP 500,000 UNIT/5 ML CUP PO SCH (15:54)
[2023-06-19] MEDS: BUTALB/APAP/CAFF 50-325-40MG TAB PO PRN (15:56)
[2023-06-19 20:17] LABS: Glucose,Whole Blood 184 mg/dL (70-110)
--- NOTE | 2023-06-19 23:46 | P.PN ---
Subjective Progress Note Date: 06/19/23 Patient was seen for a follow-up. Patient is more alert and awake today. Offers no new complaints. Objective - Vital Signs Vital signs: Vital Signs Temp 98.5 F 06/19/23 20:00 Pulse 94 06/19/23 20:00 Resp 18 06/19/23 20:00 BP 141/82 06/19/23 20:00 Pulse Ox 97 06/19/23 20:00 FiO2 Intake & Output 06/19/23 06/19/23 06/20/23 06:59 18:59 06:59 Intake Total 200 1000 Output Total 1050 650 Balance -850 350 Weight 72.575 kg Intake: Oral 200 1000 Output: Urine 1050 650 Other: Voiding Method External Catheter External Catheter - Exam Patient is alert and awake. Patient knows that she is in [place] in [place] and that it is May, but could not tell the year. On examination, the strength is (right/left triceps 5/5, biceps 5/5-4+, senior editor is 5/5. - Labs CBC & Chem 7: 06/18/23 10:27 06/18/23 10:27 Labs: Abnormal Lab Results - Last 24 Hours (Table) 06/19/23 Range/Units 20:16 POC Glucose (mg/dL) 184 H (70-110) mg/dL Assessment and Plan Assessment: * Altered mental status, likely due to metabolic encephalopathy, reasons multifactorial as mentioned below * CVA/stroke ruled out. * Occluded right vertebral artery * Atrial fibrillation with rapid ventricular rate. * Coagulopathy with elevated INR 5.6. Patient off anticoagulation. * Hyponatremia, resolved * Hypokalemia * Moderate to severe renal insufficiency * E. coli UTI * Frequent falls * Possible mild cognitive impairment versus delirium versus dementia * Diabetes * Hypertension * Tobacco use Plan: * MRI of the brain without contrast, revealed no evidence of intracranial mass or acute/subacute infarct. Nonspecific white matter changes, likely secondary to small vessel ischemic disease. Moderate right maxillary sinus mucosal thickening and secretions. I personally reviewed MRI agree with the findings. * 2-D echo revealed normal EF 60 to 65%. Mildly increased left ventricular wall thickness. Mildly increased posterior wall thickness. No obvious regional wall motion abnormalities. Severe right atrial dilation by visual. Normal left atrial size. Consider transesophageal echo if clinically indicated to definitively rule out intracardiac thrombus. Cardiology on board. * CTA head and neck showed: Occlusion/diminutive right vertebral artery extending from C5-C6 transverse processes. The left vertebral artery is dominant and patent. No evidence of dissection of the cervical internal carotid arteries or any evidence of significant stenosis at the carotid bifurcations. No evidence of intracranial high-grade stenosis or intracranial aneurysm. * EEG was abnormal due to background slowing of moderate degree, suggestive of generalized cerebral dysfunction as can be seen with toxic metabolic encephalopathy or related to diffuse structural brain abnormality. Clinical correlation is recommended. Triphasic waves seen sporadically also suggest underlying encephalopathy. No epileptiform activity was seen. * Fasting a.m. lipid panel with cholesterol 94, LDL 45, HDL 24, triglycerides 119. Lipids are well-controlled. Patient is not on any statins. * Hemoglobin A1c 6.3. * Patient has acute E. coli UTI, on ceftriaxone. Her mentation has much improved. * Optimize control of blood pressure. * Patient used to be on Coumadin. Cardiology believes patient not a candidate for warfarin because of recurrent falls. Primary team discussed with patient's family, and decided to stop anticoagulation because of fall risk. Patient started on aspirin 81 mg daily. Patient loaded with aspirin 324 mg x 1 dose * Neuro checks every 4 hours. * Telemetry monitoring rule out any arrhythmia * PT, OT, speech therapy * DVT prophylaxis: Start heparin 5000 units subcu every 8 hours. * Recommend complete tobacco cessation * Neurologically clear, when cleared by ID.
[2023-06-20] MEDS: HEPARIN SODIUM,PORCINE 5,000 UNIT/ML 1 ML VIAL SQ SCH (00:25)
[2023-06-20 06:18] LABS: Glucose,Whole Blood 104 mg/dL (70-110)
[2023-06-20 11:03] LABS: Basophils % (A) 0 %; Eosinophils # (A) 0.1 k/uL (0-0.7); Eosinophils % (A) 0 %; HCT 38.8 % (34.0-46.0); HGB 12.6 gm/dL (11.4-16.0); Hypochromasia Slight; Lymphocytes # (A) 0.7 k/uL (1.0-4.8); Lymphocytes % (A) 6 %; MCHC 32.4 g/dL (31.0-37.0); MCV 95.7 fL (80.0-100.0); Mean Platelet Volume 9.7; Monocytes # (A) 0.7 k/uL (0-1.0); Monocytes % (A) 5 %; Neutrophils # (A) 11.2 k/uL (1.3-7.7); Neutrophils % (A) 86 %; RBC 4.05 m/uL (3.80-5.40); RDW 15.6 % (11.5-15.5)
[2023-06-20 11:05] LABS: ALT 17 U/L (4-34); AST 21 U/L (14-36); African American GFR (CKD) 81 (>60 ml/min/1.73 sqM); Albumin 2.3 g/dL (3.5-5.0); Alkaline Phosphatase 81 U/L (38-126); Anion Gap 10 mmol/L; Blood Urea Nitrogen 49 mg/dL (7-17); Calcium 8.7 mg/dL (8.4-10.2); Carbon Dioxide 22 mmol/L (22-30); Chloride 109 mmol/L (98-107); Glucose 106 mg/dL (74-99); Non-African American GFR(CKD) 70 (>60 ml/min/1.73 sqM); Potassium 3.3 mmol/L (3.5-5.1); Sodium 141 mmol/L (137-145); Total Bilirubin 0.7 mg/dL (0.2-1.3); Total Protein 5.3 g/dL (6.3-8.2)
[2023-06-20 11:08] LABS: Platelet Count 134 k/uL (150-450)
[2023-06-20 11:16] LABS: Glucose,Whole Blood 112 mg/dL (70-110)
--- NOTE | 2023-06-20 14:21 | P.PN ---
Subjective this is a pleasant 83 years old female with multiple medical problems Patient somewhat poor historian and information obtained from the patient and s on at bedside Patient was in this facility about 10 days ago after she fell and hurt her back, she was discharge with recommendation to use some ibuprofen 1 at home over the last 2 days as per son patient was given more slurred speech or weakness on the left side although she has also limitation on the right side because of her shoulder pain Now she is more awake and she can move her left side As per son patient got frequent urinary tract infection and patient has been complaining from increased frequency of urination with some dysuria She had 2 large bowel movement yesterday with no abdominal pain or vomiting She denies chest pain or dyspnea She is mildly tachycardic from 117 Creatinine is 2.2 which is slightly above baseline with sodium 128, potassium 3.0 and INR is elevated at 5.6 EKG showing atrial fibrillation's with RVR at 125 CT of the brain is negative for acute processes CTA of the head and neck she is negative for dissection or aneurysm however 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 fib 06/14. Patient seen and examined. Blood work done this morning showed WBC 14.9, hemoglobin 12.2, sodium 133, potassium 3.7, BUN 61, creatinine 2.12, INR greater than 10 patient mumbling to herself, unable to obtain a detailed review of system. 06/15. Patient seen and examined. Patient is opening eyes, continues to be confused. Does not look in acute distress. Blood work done this morning showed WBC 18.8, hemoglobin 12.2, sodium 138, potassium 4, BUN 72, creatinine 1.96, lactate 2.4. Echocardiogram completed revealing ejection fraction 60 to 65% with mild MR MRI of the brain completed with no evidence of intracranial mass or acute/subacute infarct. 06/16. Patient seen and examined. Patient much more alert compared to yesterday, answering questions. Son at the bedside 06/17. Patient seen and examined. Blood work done this morning showed WBC 14.3, hemoglobin 9.9, sodium 143, potassium 3.4, BUN 73, creatinine 1.52. Had a long discussion with patient's son Harley and patient's son Ward who is the DPOA (cell phone [phone], regarding concerns about the patient being on Coumadin keeping in mind her frailty and risk of falling could pose her to have trauma to the head resulting in brain bleed, explained to her that patient will be at risk of having a stroke if she is off the Coumadin but at this time risks outweigh the benefits of her being on Coumadin. Explained to them that we will put her on baby aspirin for now, all the questions were answered and they were agreeable to make the switch and to discontinue Coumadin for now. 06/18. Patient seen and examined. Complaining of difficulty in swallowing. Swish and swallow ordered. Patient is alert, following commands 06/19. Patient seen and examined. No acute issues overnight. Complaining of lethargy. Following commands. Patient has been afebrile. vital signs stable REVIEW OF SYSTEMS: Denies chest pain. Denies any shortness of breath. PHYSICAL EXAMINATION: GENERAL: The patient is alert to self HEENT: Pupils are round and equally reacting to light. EOMI. No scleral icterus. No conjunctival pallor. Normocephalic, atraumatic. No pharyngeal erythema. No thyromegaly. CARDIOVASCULAR: S1 and S2 present. No murmurs, rubs, or gallops. PULMONARY: Chest is clear to auscultation, no wheezing or crackles. ABDOMEN: Soft, nontender, nondistended, normoactive bowel sounds. No palpable organomegaly. MUSCULOSKELETAL: No joint swelling or deformity. EXTREMITIES: Venous stasis changes of lower extremities NEUROLOGICAL: Moving all extremities SKIN: No rashes. Assessment and plan Altered mental status most likely metabolic/toxic encephalopathy. Stroke ruled out Oropharyngeal candidiasis UTI with culture positive for E. coli present on admission Fall at home Coagulopathy Supratherapeutic INR Hyponatremia, hypovolemic Mild hypokalemia Acute kidney injury on chronic kidney disease stage III A. fib with RVR, on Coumadin Right rotator cuff tear. Hypothyroidism Monitor vital signs Monitor CBC Monitor CMP Continue telemetry monitoring Continue Lopressor Continue IV Rocephin continue swish and swallow Echocardiogram completed revealing ejection fraction 60 to 65% with mild MR MRI of the brain completed with no evidence of intracranial mass or acute/subacute infarct. Neurology following cardiology following ID following PT and OT following Speech following Labs and medication were reviewed.. Continue same treatment. Continue with symptomatic treatment. Resume home medication. Monitor labs and vitals. DVT and GI prophylaxis. Further recommendations as per clinical course of the patient Dictation was produced using [employer] dictation software. please excuse any grammatical, word or spelling errors. Objective - Vital Signs Vital signs: Vital Signs Temp 97.7 F 06/20/23 11:57 Pulse 105 H 06/20/23 11:57 Resp 18 06/20/23 11:57 BP 134/97 06/20/23 11:57 Pulse Ox 97 06/20/23 11:57 FiO2 Intake & Output 06/19/23 06/20/23 06/20/23 18:59 06:59 18:59 Intake Total 1000 Output Total 650 850 400 Balance 350 -850 -400 Weight 72.575 kg Intake: Oral 1000 Output: Urine 650 850 400 Other: Voiding Method External Catheter External Catheter External Catheter # Voids 3 - Labs CBC & Chem 7: 06/20/23 09:52 06/20/23 09:52 Labs: Abnormal Lab Results - Last 24 Hours (Table) 06/19/23 06/20/23 06/20/23 Range/Units 20:16 09:52 09:52 WBC 13.0 H (3.8-10.6) k/uL RDW 15.6 H (11.5-15.5) % Plt Count 134 L D (150-450) k/uL Neutrophils # 11.2 H (1.3-7.7) k/uL Lymphocytes # 0.7 L (1.0-4.8) k/uL Potassium 3.3 L (3.5-5.1) mmol/L Chloride 109 H (98-107) mmol/L BUN 49 H (7-17) mg/dL Glucose 106 H (74-99) mg/dL POC Glucose (mg/dL) 184 H (70-110) mg/dL Total Protein 5.3 L (6.3-8.2) g/dL Albumin 2.3 L (3.5-5.0) g/dL 06/20/23 Range/Units 11:12 WBC (3.8-10.6) k/uL RDW (11.5-15.5) % Plt Count (150-450) k/uL Neutrophils # (1.3-7.7) k/uL Lymphocytes # (1.0-4.8) k/uL Potassium (3.5-5.1) mmol/L Chloride (98-107) mmol/L BUN (7-17) mg/dL Glucose (74-99) mg/dL POC Glucose (mg/dL) 112 H (70-110) mg/dL Total Protein (6.3-8.2) g/dL Albumin (3.5-5.0) g/dL
[2023-06-20] MEDS: POTASSIUM BICARBONATE/CIT AC 20 MEQ TABLET.EFF PO SCH (15:27)
[2023-06-20 16:27] LABS: Glucose,Whole Blood 163 mg/dL (70-110)
--- NOTE | 2023-06-20 20:00 | P.PN ---
Subjective Progress Note Date: 06/20/23 Principal diagnosis: Reason for follow-up is E. coli urinary tract infection Patient is 83-year-old female with a past medical history significant for hypertension atrial fibrillation endometrial cancer presenting to the hospital for evaluation of weakness and falls did have a positive UA concerning for urinary tract infection prompting this consultation. On today's evaluation that is 06/20/2023,the patient remains to be afebrile, patient is on room air not requiring supplemental oxygen and the patient denies any shortness of breath no chest pain or cough.Patient has been complaining of mostly weakness decreased appetite but no choking on food or vomiting has been reported by the nursing staff. Patient white count is down to 13,000, creatinine 0.78 urine with an E. coli Objective - Vital Signs Vital signs: Vital Signs Temp 97.7 F 06/20/23 11:57 Pulse 105 H 06/20/23 11:57 Resp 18 06/20/23 11:57 BP 134/97 06/20/23 11:57 Pulse Ox 97 06/20/23 11:57 FiO2 Intake & Output 06/19/23 06/20/23 06/20/23 18:59 06:59 18:59 Intake Total 1000 Output Total 650 850 Balance 350 -850 Weight 72.575 kg Intake: Oral 1000 Output: Urine 650 850 Other: Voiding Method External Catheter External Catheter External Catheter # Voids 3 - Exam GENERAL DESCRIPTION: An elderly female lying in bed in no distress RESPIRATORY SYSTEM: Unlabored breathing , decreased breath sounds at bases HEART: S1 S2 regular rate and rhythm , ABDOMEN: Soft , no tenderness EXTREMITIES: No edema feet Exam completed with the help of HAND NAILER - Labs CBC & Chem 7: 06/20/23 09:52 06/20/23 09:52 Labs: Abnormal Lab Results - Last 24 Hours (Table) 06/19/23 06/20/23 06/20/23 Range/Units 20:16 09:52 09:52 WBC 13.0 H (3.8-10.6) k/uL RDW 15.6 H (11.5-15.5) % Plt Count 134 L D (150-450) k/uL Neutrophils # 11.2 H (1.3-7.7) k/uL Lymphocytes # 0.7 L (1.0-4.8) k/uL Potassium 3.3 L (3.5-5.1) mmol/L Chloride 109 H (98-107) mmol/L BUN 49 H (7-17) mg/dL Glucose 106 H (74-99) mg/dL POC Glucose (mg/dL) 184 H (70-110) mg/dL Total Protein 5.3 L (6.3-8.2) g/dL Albumin 2.3 L (3.5-5.0) g/dL 06/20/23 Range/Units 11:12 WBC (3.8-10.6) k/uL RDW (11.5-15.5) % Plt Count (150-450) k/uL Neutrophils # (1.3-7.7) k/uL Lymphocytes # (1.0-4.8) k/uL Potassium (3.5-5.1) mmol/L Chloride (98-107) mmol/L BUN (7-17) mg/dL Glucose (74-99) mg/dL POC Glucose (mg/dL) 112 H (70-110) mg/dL Total Protein (6.3-8.2) g/dL Albumin (3.5-5.0) g/dL Assessment and Plan (1) E. coli UTI Current Visit: Yes Status: Acute Code(s): N39.0 - URINARY TRACT INFECTION, SITE NOT SPECIFIED; B96.20 - UNSP ESCHERICHIA COLI THE CAUSE OF DISEASES [facility] SNOMED Code(s): 038397178 Plan: 1patient presented hospital with weakness which is likely multifactorial in this patient currently has been worked up for CVA stroke MRI has been negative patient did have elevated white count positive UA with urine culture growing gram-negative bacilli concerning for symptomatic urinary tract infection likely from enteric gram-negative pathogen. 2patient urine has been finalized with E. coli that is sensitive to Rocephin 3-patient did have some clinical improvement and patient white count is trending down, patient to continue with Rocephin 2 g daily and monitor clinical course closely Dictation was produced using [employer] dictation software. please excuse any grammatical, word or spelling errors. Time with Patient: Less than 30
[2023-06-20 20:12] LABS: Glucose,Whole Blood 189 mg/dL (70-110)
[2023-06-21 06:06] LABS: Glucose,Whole Blood 55 mg/dL (70-110)
[2023-06-21 06:27] LABS: Glucose,Whole Blood 127 mg/dL (70-110)
[2023-06-21 12:10] LABS: Glucose,Whole Blood 152 mg/dL (70-110)
--- NOTE | 2023-06-21 12:26 | XR ---
EXAMINATION TYPE: XR thoracic spine 3 views, XR Hip 2 views Bilateral and AP pelvis, XR lumbar spine 3V DATE OF EXAM: 06/21/2023 COMPARISON: NONE HISTORY: 83-year-old female with pain after fall FINDINGS: The technologist notes best possible images, patient unable to move. Thoracic spine: There is dish within the lower thoracic spine. External artifact in crosstable technique limits asses sment of the upper and mid thoracic spine. Visualized lower thoracic spine shows no obvious vertebral body height loss or malalignment. Lumbar spine: Degenerated levoconvex scoliosis. Osteopenia. Atherosclerotic calcifications. Overall vertebral body heights are preserved alignment for the marked degree of osteopenia. Advanced hypertrophic facet arth ropathy and moderate to advanced degenerative disc disease throughout. Pelvis and bilateral hips: Osteopenia. Right hip arthroplasty appears intact. No periprosthetic fracture seen. Moderate degenera tive change left hip. No displaced fracture seen. IMPRESSION: 1. Thoracic spine: Limited by crosstable technique. Unable to adequately visualize/assess the upper o r mid thoracic spine. 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 2. Lumbar spine: Degenerated levoconvex scoliosis. The degree of osteopenia limits the evaluation. No obvious vertebral compression collapse or malalignment. 3. Pelvis and bilateral hips: Osteopenia limiting the evaluation. Right hip total arthroplasty. No di splaced fracture seen.
--- NOTE | 2023-06-21 13:00 | P.PN ---
Subjective Progress Note Date: 06/21/23 this is a pleasant 83 years old female with multiple medical problems Patient somewhat poor historian and information obtained from the patient and son at bedside Patient was in this facility about 10 days ago after she fell and hurt her back, she was discharge with recommendation to use some ibuprofen 1 at home over the last 2 days as per son patient was given more slurred speech or weakness on the left side although she has also limitation on the right side because of her shoulder pain Now she is more awake and she can move her left side As per son patient got frequent urinary tract infection and patient has been complaining from increased frequency of urination with some dysuria She had 2 large bowel movement yesterday with no abdominal pain or vomiting She denies chest pain or dyspnea She is mildly tachycardic from 117 Creatinine is 2.2 which is slightly above baseline with sodium 128, potassium 3.0 and INR is elevated at 5.6 EKG showing atrial fibrillation's with RVR at 125 CT of the brain is negative for acute processes CTA of the head and neck she is negative for dissection or aneurysm however 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 fib 06/14. Patient seen and examined. Blood work done this morning showed WBC 14.9, hemoglobin 12.2, sodium 133, potassium 3.7, BUN 61, creatinine 2.12, INR greater than 10 patient mumbling to herself, unable to obtain a detailed review of system. 06/15. Patient seen and examined. Patient is opening eyes, continues to be confused. Does not look in acute distress. Blood work done this morning showed WBC 18.8, hemoglobin 12.2, sodium 138, potassium 4, BUN 72, creatinine 1.96, lactate 2.4. Echocardiogram completed revealing ejection fraction 60 to 65% with mild MR MRI of the brain completed with no evidence of intracranial mass or acute/subacute infarct. 06/16. Patient seen and examined. Patient much more alert compared to yesterday, answering questions. Son at the bedside 06/17. Patient seen and examined. Blood work done this morning showed WBC 14.3, hemoglobin 9.9, sodium 143, potassium 3.4, BUN 73, creatinine 1.52. Had a long discussion with patient's son Harley and patient's son Ward who is the DPOA (cell phone [phone], regarding concerns about the patient being on Coumadin keeping in mind her frailty and risk of falling could pose her to have trauma to the head resulting in brain bleed, explained to her that patient will be at risk of having a stroke if she is off the Coumadin but at this time risks outweigh the benefits of her being on Coumadin. Explained to them that we will put her on baby aspirin for now, all the questions were answered and they were agreeable to make the switch and to discontinue Coumadin for now. 06/18. Patient seen and examined. Complaining of difficulty in swallowing. Swish and swallow ordered. Patient is alert, following commands 06/19. Patient seen and examined. No acute issues overnight. Complaining of lethargy. Following commands. Patient has been afebrile. vital signs stable 06/20. Patient seen and examined. Complaining of back pain, gets painful on moving in the bed. Will order x-ray of pelvis hip and lumbar spine REVIEW OF SYSTEMS: Denies chest pain. Denies any shortness of breath. PHYSICAL EXAMINATION: GENERAL: The patient is alert to self HEENT: Pupils are round and equally reacting to light. EOMI. No scleral icterus. No conjunctival pallor. Normocephalic, atraumatic. No pharyngeal erythema. No thyromegaly. CARDIOVASCULAR: S1 and S2 present. No murmurs, rubs, or gallops. PULMONARY: Chest is clear to auscultation, no wheezing or crackles. ABDOMEN: Soft, nontender, nondistended, normoactive bowel sounds. No palpable organomegaly. MUSCULOSKELETAL: No joint swelling or deformity. EXTREMITIES: Venous stasis changes of lower extremities NEUROLOGICAL: Moving all extremities SKIN: No rashes. Assessment and plan Altered mental status most likely metabolic/toxic encephalopathy. Stroke ruled out Oropharyngeal candidiasis UTI with culture positive for E. coli present on admission Fall at home Coagulopathy Supratherapeutic INR Hyponatremia, hypovolemic Mild hypokalemia Acute kidney injury on chronic kidney disease stage III A. fib with RVR, on Coumadin Right rotator cuff tear. Hypothyroidism Monitor vital signs Monitor CBC Monitor CMP Continue telemetry monitoring Continue Lopressor Continue IV Rocephin continue swish and swallow Ordered x-ray of hip pelvis and lumbar spine Ordered as needed [place] and lidocaine patch Echocardiogram completed revealing ejection fraction 60 to 65% with mild MR MRI of the brain completed with no evidence of intracranial mass or acute/subacute infarct. Neurology following cardiology following ID following PT and OT following Speech following Labs and medication were reviewed.. Continue same treatment. Continue with symptomatic treatment. Resume home medication. Monitor labs and vitals. DVT and GI prophylaxis. Further recommendations as per clinical course of the patient Dictation was produced using [employer] dictation software. please excuse any grammatical, word or spelling errors. Objective - Vital Signs Vital signs: Vital Signs Temp 97.6 F 06/21/23 12:00 Pulse 97 06/21/23 12:00 Resp 18 06/21/23 12:00 BP 127/86 06/21/23 12:00 Pulse Ox 94 L 06/21/23 12:00 FiO2 Intake & Output 06/20/23 06/21/23 06/21/23 18:59 06:59 18:59 Output Total 700 800 450 Balance -700 -800 -450 Output: Urine 700 800 450 Other: Voiding Method External Catheter External Catheter External Catheter # Voids 1 - Labs CBC & Chem 7: 06/20/23 09:52 06/20/23 09:52 Labs: Abnormal Lab Results - Last 24 Hours (Table) 06/20/23 06/20/23 06/21/23 Range/Units 16:25 20:10 06:05 POC Glucose (mg/dL) 163 H 189 H 55 L (70-110) mg/dL 06/21/23 06/21/23 Range/Units 06:25 12:07 POC Glucose (mg/dL) 127 H 152 H (70-110) mg/dL
[2023-06-21 16:28] LABS: Glucose,Whole Blood 169 mg/dL (70-110)
[2023-06-21] MEDS: POTASSIUM BICARBONATE/CIT AC 20 MEQ TABLET.EFF PO ONE (18:29)
[2023-06-21 20:08] LABS: Glucose,Whole Blood 220 mg/dL (70-110)
[2023-06-22] MEDS: HYDROcodone/APAP 5-325MG 1 EACH TAB PO PRN (05:19)
[2023-06-22 07:34] LABS: Glucose,Whole Blood 154 mg/dL (70-110)
[2023-06-22 08:20] VITALS: RESP 16
[2023-06-22 12:21] LABS: Glucose,Whole Blood 165 mg/dL (70-110)
[2023-06-22 12:55] VITALS: BP 105/72; PULSE 93; TEMP 96.8
--- NOTE | 2023-06-22 14:38 | P.DS ---
Providers Date of admission: 06/13/23 20:13 Expected date of discharge: 06/22/23 Attending physician: Shola Camara Consults: 06/13/23 20:13 Consult Physician Urgent Consulting Provider: William Koenig Consult Reason/Comments: cva Do you want consulting provider notified?: Yes 06/14/23 22:04 Consult Physician Stat Consulting Provider: Elizabeth Palacio Consult Reason/Comments: Possible Sepsis Do you want consulting provider notified?: Already Contacted 06/16/23 11:41 Consult Physician Routine Consulting Provider: Mariaelena Friedman Consult Reason/Comments: sepsis Do you want consulting provider notified?: Yes Primary care physician: [facility] Course: this is a pleasant 83 years old female with multiple medical problems Patient somewhat poor historian and information obtained from the patient and son at bedside Patient was in this facility about 10 days ago after she fell and hurt her back, she was discharge with recommendation to use some ibuprofen 1 at home over the last 2 days as per son patient was given more slurred speech or weakness on the left side although she has also limitation on the right side because of her shoulder pain Now she is more awake and she can move her left side As per son patient got frequent urinary tract infection and patient has been complaining from increased frequency of urination with some dysuria She had 2 large bowel movement yesterday with no abdominal pain or vomiting She denies chest pain or dyspnea She is mildly tachycardic from 117 Creatinine is 2.2 which is slightly above baseline with sodium 128, potassium 3.0 and INR is elevated at 5.6 EKG showing atrial fibrillation's with RVR at 125 CT of the brain is negative for acute processes CTA of the head and neck she is negative for dissection or aneurysm however 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 fib 06/14. Patient seen and examined. Blood work done this morning showed WBC 14.9, hemoglobin 12.2, sodium 133, potassium 3.7, BUN 61, creatinine 2.12, INR greater than 10 patient mumbling to herself, unable to obtain a detailed review of system. 06/15. Patient seen and examined. Patient is opening eyes, continues to be confused. Does not look in acute distress. Blood work done this morning showed WBC 18.8, hemoglobin 12.2, sodium 138, potassium 4, BUN 72, creatinine 1.96, lactate 2.4. Echocardiogram completed revealing ejection fraction 60 to 65% with mild MR MRI of the brain completed with no evidence of intracranial mass or acute/subacute infarct. 06/16. Patient seen and examined. Patient much more alert compared to yesterday, answering questions. Son at the bedside 06/17. Patient seen and examined. Blood work done this morning showed WBC 14.3, hemoglobin 9.9, sodium 143, potassium 3.4, BUN 73, creatinine 1.52. Had a long discussion with patient's son Harley and patient's son Ward who is the DPOA (cell phone [phone], regarding concerns about the patient being on Coumadin keeping in mind her frailty and risk of falling could pose her to have trauma to the head resulting in brain bleed, explained to her that patient will be at risk of having a stroke if she is off the Coumadin but at this time risks outweigh the benefits of her being on Coumadin. Explained to them that we will put her on baby aspirin for now, all the questions were answered and they were agreeable to make the switch and to discontinue Coumadin for now. 06/18. Patient seen and examined. Complaining of difficulty in swallowing. Swish and swallow ordered. Patient is alert, following commands 06/19. Patient seen and examined. No acute issues overnight. Complaining of lethargy. Following commands. Patient has been afebrile. vital signs stable 06/20. Patient seen and examined. Complaining of back pain, gets painful on moving in the bed. Will order x-ray of pelvis hip and lumbar spine June 21: I assumed care of the patient today. Discussed with the nurse. Did tolerate a diet. Patient has chronic low back pain. No fracture on the x-ray. We did roll the patient. Not much change in pain. She has boot in both the feet. On a chopped diet. Because of falls Coumadin has been discontinued. On aspirin now. Patient has unstageable stage Lali ulcer on both the heels. And stage II decub ulcer on the lower back. Naproxen 2 5 mg twice daily started for arthritis pain. Discussion and discharge planning more than 35 minutes On examination: VITAL SIGNS: [96.8, 93, 16, 105/72, 92% room air] GENERAL APPEARANCE: Laying in bed, comfortable HEENT: Normal external appearance of nose and ear. Oral cavity normal EYES: Pupils equal. Conjunctiva normal. NECK: JVD not raised. Mass not palpable. RESPIRATORY: Respiratory effort normal. Lungs clear to auscultation. CARDIOVASCULAR: First and second sounds normal. No edema. ABDOMEN: Soft. Liver and spleen not palpable. No tenderness. No mass palpable. PSYCHIATRY: Able to answer simple questions DERMATOLOGICAL: Unstageable blanching on both the heels. Has offloading boots on both heels. Stage II sacral decubitus ulcer. INVESTIGATIONS, reviewed in the clinical context: June 27: White count 13 hemoglobin 12.6 platelets 134 sodium 141 potassium 3.3 creatinine 0.78 June 15: White count 18.8 platelets 97 potassium 4 BUN 32 creatinine 1.96 Urine culture: E. coli Echocardiogram completed revealing ejection fraction 60 to 65% with mild MR MRI of the brain completed with no evidence of intracranial mass or acute/subacute infarct. Assessment and plan: -Altered mental status most likely metabolic and toxic encephalopathy. Secondary to UTI: Improved -Acute stroke ruled out -Oropharyngeal candidiasis Nystatin -UTI with cystitis with culture positive for E. coli causing toxic and metabolic encephalopathy Completed course of antibiotic -Fall at home, multifactorial including encephalopathy -Supratherapeutic INR, with coagulopathy, from Coumadin Coumadin discontinued -Hyponatremia, hypovolemic: Improved -Mild hypokalemia -Acute kidney injury likely ATN: Resolved -No CKD -Persistent A. fib with RVR, now rate controlled Coumadin discontinued because of falls. Aspirin. Lopressor -Right rotator cuff tear. 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 And other joints Naproxen to 50 mg twice daily Disposition: F/[facility]ell Plan - Discharge Summary Discharge Rx Participant: Yes New Discharge Prescriptions: New Aspirin 81 mg PO DAILY tab Metoprolol Tartrate [Lopressor] 75 mg PO TID tab Nystatin 100,000 Unit/ml Susp [Mycostatin Oral Susp] 500,000 unit PO QID ml Acetaminophen Tab [Tylenol] 650 mg PO Q6HR PRN tab PRN Reason: Fever And/ Or Pain Continue Levothyroxine Sodium 125 mcg PO DAILY Ibuprofen [Motrin Ib] 200 mg PO BID Discontinued Warfarin [Coumadin] 5 mg PO SUMOTUWETHSA Metoprolol Tartrate [Lopressor] 25 mg PO BID Warfarin [Coumadin] 2.5 mg PO FR Chlorthalidone [Hygroton] 25 mg PO BID Discharge Medication List Levothyroxine Sodium 125 mcg PO DAILY 12/23/21 [History] Acetaminophen Tab [Tylenol] 650 mg PO Q6HR PRN tab 06/22/23 [Rx] Aspirin 81 mg PO DAILY tab 06/22/23 [Rx] Metoprolol Tartrate [Lopressor] 75 mg PO TID tab 06/22/23 [Rx] Naproxen 250 mg PO BID #1 tab 06/22/23 [Rx] Nystatin 100,000 Unit/ml Susp [Mycostatin Oral Susp] 500,000 unit PO QID ml 06/22/23 [Rx] Follow up Appointment(s)/Referral(s): Lucio Jenkins DO [Primary Care Provider] - 1-2 days
--- NOTE | 2023-06-25 09:51 | US ---
EXAMINATION TYPE: US groin LT DATE OF EXAM: 06/22/2023 COMPARISON: NONE CLINICAL INDICATION: Female, 83 years old with history of left groin pain; LEFT GROIN PAIN, no h/o he rnia, no palpable area TECHNIQUE: Left groin scan FINDINGS: Normal appearing soft tissue groin with no abnormality noted IMPRESSION: Negative exam
== END 2023-06-22 17:05 | DRG 689 ==
LOC: EC 18:36 → 3SCARD 20:13 → 5NMEDONC 06-22 00:55
PROVIDERS: ADMIT Hospitalist; ATTEND Hospitalist
PROC: 3E033RZ Introduction of Antiarrhythmic into Peripheral Vein, Percutaneous Approach (ICD-10-PCS; principal; 2023-06-14)
DX: N39.0 Urinary tract infection, site not specified (principal); G92.8 Other toxic encephalopathy; N17.0 Acute kidney failure with tubular necrosis; B37.89 Other sites of candidiasis; B37.0 Candidal stomatitis; E87.1 Hypo-osmolality and hyponatremia; E87.20 Acidosis, unspecified; F02.83 Dementia in other diseases classified elsewhere, unspecified severity, with mood disturbance; F02.84 Dementia in other diseases classified elsewhere, unspecified severity, with anxiety; I48.19 Other persistent atrial fibrillation; J84.9 Interstitial pulmonary disease, unspecified; L89.102 Pressure ulcer of unspecified part of back, stage 2; L89.152 Pressure ulcer of sacral region, stage 2; L89.620 Pressure ulcer of left heel, unstageable; E11.41 Type 2 diabetes mellitus with diabetic mononeuropathy; L89.610 Pressure ulcer of right heel, unstageable; I65.01 Occlusion and stenosis of right vertebral artery; R54 Age-related physical debility; I13.10 Hypertensive heart and chronic kidney disease without heart failure, with stage 1 through stage 4 chronic kidney disease, or unspecified chronic kidney disease; G30.1 Alzheimer's disease with late onset; E11.22 Type 2 diabetes mellitus with diabetic chronic kidney disease; G57.93 Unspecified mononeuropathy of bilateral lower limbs; N18.31 Chronic kidney disease, stage 3a; F32.A Depression, unspecified; E03.9 Hypothyroidism, unspecified; B96.20 Unspecified Escherichia coli [E. coli] as the cause of diseases classified elsewhere; E87.6 Hypokalemia; E86.1 Hypovolemia; E86.0 Dehydration; I49.3 Ventricular premature depolarization; M15.9 Polyosteoarthritis, unspecified; M47.816 Spondylosis without myelopathy or radiculopathy, lumbar region; M75.121 Complete rotator cuff tear or rupture of right shoulder, not specified as traumatic; R13.10 Dysphagia, unspecified; R47.81 Slurred speech; G89.29 Other chronic pain; M54.50 Low back pain, unspecified; R29.6 Repeated falls; R79.1 Abnormal coagulation profile; T45.515A Adverse effect of anticoagulants, initial encounter; F17.210 Nicotine dependence, cigarettes, uncomplicated; Z71.6 Tobacco abuse counseling; Z79.890 Hormone replacement therapy; Z79.01 Long term (current) use of anticoagulants; Z79.1 Long term (current) use of non-steroidal anti-inflammatories (NSAID); Z79.899 Other long term (current) drug therapy; Z91.81 History of falling; Z85.42 Personal history of malignant neoplasm of other parts of uterus; Z96.641 Presence of right artificial hip joint; Z88.8 Allergy status to other drugs, medicaments and biological substances; W01.0XXA Fall on same level from slipping, tripping and stumbling without subsequent striking against object, initial encounter; Y92.009 Unspecified place in unspecified non-institutional (private) residence as the place of occurrence of the external cause
CPT/HCPCS: 36415; 51798; 70450; 70496; 70498; 70551; 71046; 72070; 72100; 73521; 80048; 80053; 80061; 81001; 82550; 82607; 82746; 83036; 83605; 83735; 84439; 84443; 85025; 85027; 85610; 85730; 87077; 87086; 87186; 93005; 93306; 94760; 95816; 96361; 96365; 96366; 96367; 96368; 99285

== ENCOUNTER 2023-07-14 14:35 | Inpatient (IN) | payer MEDICAID ==
[2023-07-14] MEDS ORDERED: ONDANSETRON 4 MG/2 ML VIAL IVP PRN (15:05)
[2023-07-14] MEDS ORDERED: MORPHINE SULFATE 2 MG/ML SYRINGE IV PRN (15:05)
[2023-07-14] MEDS ORDERED: ATROPINE OPHTH SOLN 1% 5ML BTL SUBLINGUAL PRN (15:05)
[2023-07-14] MEDS: MORPHINE SULFATE (100 MG/2 ML) 100 MG in SODIUM CHLORIDE 0.9% 100 ML IV SCH (16:32)
[2023-07-14] MEDS: SCOPOLAMINE 1 MG/72 HR PATCH TRANSDERM SCH (17:09)
--- NOTE | 2023-07-15 14:51 | P.HPIM ---
History of Present Illness H&P Date: 07/15/23 Chief Complaint: Morning This is a 83 years old patient with multiple medical problems Multiple medical problems. Patient is doing poorly. Made comfort care. Admitted to [facility] with [facility]. On examination: VITAL SIGNS: 106, 16, 94% on 2 L GENERAL APPEARANCE: Lethargic bruising and some generalized edema HEENT: Normal external appearance of nose and ear. Oral cavity dry EYES: Pupils equal. Conjunctiva pale. . RESPIRATORY: Respiratory effort creased l. Lungs decreased breath sounds. CARDIOVASCULAR: First and second sounds normal. No edema. ABDOMEN: Soft. Liver and spleen not palpable. No tenderness. No mass palpable. PSYCHIATRY: Lethargic DERMATOLOGICAL: Unstageable blanching ulcer on both the heels. Has offloading boots on both heels. Stage II sacral decubitus ulcer. INVESTIGATIONS, reviewed in the clinical context: MRI lumbar spine with and without contrast: Bindings compatible with osteomyelitis discitis L3-L4. At other levels severe spinal canal stenosis, and other findings see report July 12: White count 16.9 hemoglobin 10.9 platelets 401 creatinine 1.57 July 11: Potassium 4.1 BUN 37 creatinine 1.06 June 11: White count 14.7 hemoglobin 10.3 platelets 369 sodium 136 potassium 4.3 BUN 35 creatinine 0.93 Troponin I 0.054 Stool occult blood positive EKG tracing personally reviewed by me-atrial fibrillation. Rate 124 Chest x-ray film personally reviewed by me-cardiomegaly. Pleural effusions patient has a right-sided. Pulm edema CT scan abdomen pelvis: There is space widening with intradiscal fluid and endplate erosions at L3-L4 highly suspicious for discitis osteomyelitis. Spondylitic changes. Severe spinal stenosis. Solid stool severely distending the rectum up to 8.5 cm wide. Circumferential rectal wall thickening with perirectal edema. Fluid overload with generalized anasarca. Pleural effusion. Recent investigations June 27: White count 13 hemoglobin 12.6 platelets 134 sodium 141 potassium 3.3 creatinine 0.78 Echocardiogram [June 15, 2023] completed revealing ejection fraction 60 to 65% with mild MR MRI of the brain completed with no evidence of intracranial mass or acute/subacute infarct. Assessment and plan: -[facility]-for symptom control for pain -Altered mental status most metabolic encephalopathy: Worsening -Acute osteomyelitis discitis L3-L4 -Acute congestive heart failure exacerbation from diastolic dysfunction EF 60 to 65%: -Probable recurrent UTI with cystitis given altered mental status. -Troponin leak from UTI. No clinical evidence of ACS. -Chronic medical debility -Patient had been recently on Coumadin which has been discontinued, because of frailty and falls -Persistent A. fib with RVR, better now -Right rotator cuff tear. -Hypothyroidism -Moderate-severe cognitive impairment, likely from late onset Alzheimer's dementia -Primary osteoarthritis multiple joints including lumbar sacral spine. And other joints -Acute lower GI bleed likely stercoral colitis from over distention of rectum from stool. bleeding per rectum for about 6 hours-prior to presentation. -Severe obstipation, likely multifactorial -Neurological discitis at L3-L4 suspicion for osteomyelitis. Patient has lower back pain -DNR. -[DAREN MCCOY]. Patient's other son is Gonzalo Patient on IV morphine drip. Scopolamine patch. Family aware. Symptom management. Past Medical History Past Medical History: Atrial Fibrillation, Cancer, Hypertension, Thyroid Disorder Additional Past Medical History / Comment(s): states has "lump in stomach" endometrial cancer 2017; neuropathy feet, states pre diabetic, depression History of Any Multi-Drug Resistant Organisms: None Reported Past Surgical History: Section, Cholecystectomy, Hysterectomy, Joint Replacement Additional Past Surgical History / Comment(s): R Hip replaced, cardioversion, Past Anesthesia/Blood Transfusion Reactions: No Reported Reaction Past Psychological History: Anxiety, Depression Smoking Status: Unknown if ever smoked Past Alcohol Use History: Unable to Obtain Additional Past Alcohol Use History / Comment(s): . Past Drug Use History: Unable to Obtain - Past Family History Mother Family Medical History: No Reported History Medications and Allergies Home Medications Medication Instructions Recorded Confirmed Type Levothyroxine Sodium 125 mcg PO DAILY 12/23/21 07/11/23 History Acetaminophen Tab [Tylenol] 650 mg PO Q6HR PRN tab 06/22/23 07/11/23 Rx Aspirin 81 mg PO DAILY tab 06/22/23 07/11/23 Rx Ensure Enlive 237 ml PO TID@0800,1200,1700 07/11/23 07/11/23 History Ferrous Sulfate [Feosol] 325 mg PO DAILY 07/11/23 07/11/23 History HYDROcodone/APAP 7.5-325MG [[place] 1 tab PO Q6H PRN 07/11/23 07/11/23 History 7.5-325] Magnesium Hydroxide [Milk of 7,200 mg PO Q48H PRN 07/11/23 07/11/23 History Magnesia Concentrate] Metoprolol Tartrate [Lopressor] 75 mg PO TID@0600,1400,2100 07/11/23 07/11/23 History Na Phos,M-B/Na Phos,Di-Ba [Fleet 133 ml RECTAL DAILY PRN 07/11/23 07/11/23 History Adult] Nystatin 100,000Unit/gm Cream 1 applic TOPICAL BID 07/11/23 07/11/23 History [Mycostatin Cream] Triamcinolone 0.5% Cream [Kenalog 1 applic TOPICAL BID 07/11/23 07/11/23 History 0.5% Cream] bisacodyL [Dulcolax] 10 mg RECTAL DAILY PRN 07/11/23 07/11/23 History Allergies Allergy/AdvReac Type Severity Reaction Status Date / Time lisinopril Allergy Rash/Hives Verified 07/11/23 10:38 losartan Allergy Rash/Hives Verified 07/11/23 10:38 Physical Exam Vitals: Vital Signs Pulse Resp Pulse Ox 07/15/23 09:17 94 L 07/15/23 07:49 98 16 07/15/23 04:00 98 16 07/15/23 02:00 106 H 16 07/14/23 23:38 106 H 16 07/14/23 20:00 16 Intake and Output 07/14/23 07/15/23 07/15/23 22:59 06:59 14:59 Intake Total 3.247 30.192 Output Total 225 Balance 3.247 -194.808 Intake: Intake, IV Titration 3.247 30.192 Amount Morphine Sulfate (100 mg/ 3.247 30.192 2 ml) 100 mg In Sodium Chloride 0.9% 100 ml @ 1 MG/HR 1.02 mls/hr IV . Q24H [facility] Rx#:[id number] Output: Urine 225 Other: Voiding Method Indwelling Catheter Indwelling Catheter Indwelling Catheter # Bowel Movements 1 Weight 81.5 kg
[2023-07-16 16:04] VITALS: TEMP 97.7
--- NOTE | 2023-07-16 16:35 | P.PN ---
Progress Note - Text Progress Note Date: 07/16/23 Chief Complaint: Comfort measures This is a 83 years old patient with multiple medical problems Multiple medical problems. Patient is doing poorly. Made comfort care. Admitted to [facility] with [facility]. July 16, 2023: Remains on morphine drip and scopolamine patch. Lethargic. Mouth breathing. Does not appear to be in pain On examination: VITAL SIGNS: 97.5, 111, 7, 98% on 2 L 73/54 GENERAL APPEARANCE: Lethargic. Bruising and some generalized edema HEENT: Normal external appearance of nose and ear. Oral cavity dry EYES: Pupils equal. Conjunctiva pale. . RESPIRATORY: Respiratory effort creased l. Lungs decreased breath sounds. CARDIOVASCULAR: First and second sounds normal. No edema. ABDOMEN: Soft. Liver and spleen not palpable. No tenderness. No mass palpable. PSYCHIATRY: Lethargic DERMATOLOGICAL: Unstageable blanching ulcer on both the heels. Has offloading boots on both heels. Stage II sacral decubitus ulcer. INVESTIGATIONS, reviewed in the clinical context: MRI lumbar spine with and without contrast: Bindings compatible with osteomyelitis discitis L3-L4. At other levels severe spinal canal stenosis, and other findings see report July 12: White count 16.9 hemoglobin 10.9 platelets 401 creatinine 1.57 July 11: Potassium 4.1 BUN 37 creatinine 1.06 July 10: White count 14.7 hemoglobin 10.3 platelets 369 sodium 136 potassium 4.3 BUN 35 creatinine 0.93 Troponin I 0.054 Stool occult blood positive EKG tracing personally reviewed by me-atrial fibrillation. Rate 124 Chest x-ray film personally reviewed by me-cardiomegaly. Pleural effusions patient has a right-sided. Pulm edema CT scan abdomen pelvis: There is space widening with intradiscal fluid and endplate erosions at L3-L4 highly suspicious for discitis osteomyelitis. Spondylitic changes. Severe spinal stenosis. Solid stool severely distending the rectum up to 8.5 cm wide. Circumferential rectal wall thickening with perirectal edema. Fluid overload with generalized anasarca. Pleural effusion. Recent investigations June 27: White count 13 hemoglobin 12.6 platelets 134 sodium 141 potassium 3.3 creatinine 0.78 Echocardiogram [June 15, 2023] completed revealing ejection fraction 60 to 65% with mild MR MRI of the brain completed with no evidence of intracranial mass or acute/subacute infarct. Assessment and plan: -[facility]-for symptom control for pain -Altered mental status most metabolic encephalopathy: Worsening -Acute osteomyelitis discitis L3-L4 -Acute congestive heart failure exacerbation from diastolic dysfunction EF 60 to 65%: -Probable recurrent UTI with cystitis given altered mental status. -Troponin leak from UTI. No clinical evidence of ACS. -Chronic medical debility -Patient had been recently on Coumadin which has been discontinued, because of frailty and falls -Persistent A. fib with RVR, better now -Right rotator cuff tear. -Hypothyroidism -Moderate-severe cognitive impairment, likely from late onset Alzheimer's dementia -Primary osteoarthritis multiple joints including lumbar sacral spine. And other joints -Acute lower GI bleed likely stercoral colitis from over distention of rectum from stool. bleeding per rectum for about 6 hours-prior to presentation. -Severe obstipation, likely multifactorial -Neurological discitis at L3-L4 suspicion for osteomyelitis. Patient has lower back pain -DNR. -[DAREN MCCOY]. Patient's other son is Gonzalo Continue on IV morphine drip. Scopolamine patch. Monitoring for comfort measures Past Medical History Past Medical History: Atrial Fibrillation, Cancer, Hypertension, Thyroid Disorder Additional Past Medical History / Comment(s): states has "lump in stomach" endometrial cancer 2017; neuropathy feet, states pre diabetic, depression History of Any Multi-Drug Resistant Organisms: None Reported Past Surgical History: Section, Cholecystectomy, Hysterectomy, Joint Replacement Additional Past Surgical History / Comment(s): R Hip replaced, cardioversion, Past Anesthesia/Blood Transfusion Reactions: No Reported Reaction Past Psychological History: Anxiety, Depression Smoking Status: Unknown if ever smoked Past Alcohol Use History: Unable to Obtain Additional Past Alcohol Use History / Comment(s): . Past Drug Use History: Unable to Obtain
[2023-07-17 01:43] VITALS: BP 85/49
[2023-07-17 10:30] VITALS: BMI 28.1
[2023-07-17] MEDS: LORazepam 1 MG/0.5 ML VIAL IV PRN (15:54)
--- NOTE | 2023-07-17 17:19 | P.PN ---
Progress Note - Text Progress Note Date: 07/17/23 Chief Complaint: Comfort measures This is a 83 years old patient with multiple medical problems Multiple medical problems. Patient is doing poorly. Made comfort care. Admitted to [facility] with [facility]. July 16, 2023: Remains on morphine drip and scopolamine patch. Lethargic. Mouth breathing. Does not appear to be in pain July 17, 2023: Remains on morphine drip. Breathing comfortably. Son at the bedside. Discussed On examination: VITAL SIGNS: 133, 6, 96% on 1 L GENERAL APPEARANCE: Lethargic. Bruising and some generalized edema HEENT: Normal external appearance of nose and ear. Oral cavity dry EYES: Pupils equal. Conjunctiva pale. . RESPIRATORY: Respiratory effort creased l. Lungs decreased breath sounds. CARDIOVASCULAR: First and second sounds normal. No edema. ABDOMEN: Soft. Liver and spleen not palpable. No tenderness. No mass palpable. PSYCHIATRY: Lethargic DERMATOLOGICAL: Unstageable blanching ulcer on both the heels. Has offloading boots on both heels. Stage II sacral decubitus ulcer. INVESTIGATIONS, reviewed in the clinical context: MRI lumbar spine with and without contrast: Bindings compatible with osteomyelitis discitis L3-L4. At other levels severe spinal canal stenosis, and other findings see report July 12: White count 16.9 hemoglobin 10.9 platelets 401 creatinine 1.57 July 11: Potassium 4.1 BUN 37 creatinine 1.06 July 10: White count 14.7 hemoglobin 10.3 platelets 369 sodium 136 potassium 4.3 BUN 35 creatinine 0.93 Troponin I 0.054 Stool occult blood positive EKG tracing personally reviewed by me-atrial fibrillation. Rate 124 Chest x-ray film personally reviewed by me-cardiomegaly. Pleural effusions patient has a right-sided. Pulm edema CT scan abdomen pelvis: There is space widening with intradiscal fluid and endplate erosions at L3-L4 highly suspicious for discitis osteomyelitis. Spondylitic changes. Severe spinal stenosis. Solid stool severely distending the rectum up to 8.5 cm wide. Circumferential rectal wall thickening with perirectal edema. Fluid overload with generalized anasarca. Pleural effusion. Recent investigations June 27: White count 13 hemoglobin 12.6 platelets 134 sodium 141 potassium 3.3 creatinine 0.78 Echocardiogram [June 15, 2023] completed revealing ejection fraction 60 to 65% with mild MR MRI of the brain completed with no evidence of intracranial mass or acute/subacute infarct. Assessment and plan: -[facility]-for symptom control for pain -Altered mental status most metabolic encephalopathy: Worsening -Acute osteomyelitis discitis L3-L4 -Acute congestive heart failure exacerbation from diastolic dysfunction EF 60 to 65%: -Probable recurrent UTI with cystitis given altered mental status. -Troponin leak from UTI. No clinical evidence of ACS. -Chronic medical debility -Patient had been recently on Coumadin which has been discontinued, because of frailty and falls -Persistent A. fib with RVR, better now -Right rotator cuff tear. -Hypothyroidism -Moderate-severe cognitive impairment, likely from late onset Alzheimer's dementia -Primary osteoarthritis multiple joints including lumbar sacral spine. And other joints -Acute lower GI bleed likely stercoral colitis from over distention of rectum from stool. bleeding per rectum for about 6 hours-prior to presentation. -Severe obstipation, likely multifactorial -Neurological discitis at L3-L4 suspicion for osteomyelitis. Patient has lower back pain -DNR. -[DAREN MCCOY]. Patient's other son is Gonzalo on IV morphine drip. Scopolamine patch. Cussed with son at the bedside. Past Medical History Past Medical History: Atrial Fibrillation, Cancer, Hypertension, Thyroid Disorder Additional Past Medical History / Comment(s): states has "lump in stomach" endometrial cancer 2017; neuropathy feet, states pre diabetic, depression History of Any Multi-Drug Resistant Organisms: None Reported Past Surgical History: Section, Cholecystectomy, Hysterectomy, Joint Replacement Additional Past Surgical History / Comment(s): R Hip replaced, cardioversion, Past Anesthesia/Blood Transfusion Reactions: No Reported Reaction Past Psychological History: Anxiety, Depression Smoking Status: Unknown if ever smoked Past Alcohol Use History: Unable to Obtain Additional Past Alcohol Use History / Comment(s): . Past Drug Use History: Unable to Obtain
[2023-07-18 00:07] VITALS: PULSE 157; RESP 16
== END 2023-07-18 03:00 | disposition expired | DRG 951 ==
LOC: 3SCARD 16:15
PROVIDERS: ADMIT Hospitalist; ATTEND Hospitalist
DX: Z51.5 Encounter for palliative care (principal); L89.153 Pressure ulcer of sacral region, stage 3; G93.41 Metabolic encephalopathy; I50.33 Acute on chronic diastolic (congestive) heart failure; I48.19 Other persistent atrial fibrillation; F02.83 Dementia in other diseases classified elsewhere, unspecified severity, with mood disturbance; G30.1 Alzheimer's disease with late onset; E03.9 Hypothyroidism, unspecified; F02.80 Dementia in other diseases classified elsewhere, unspecified severity, without behavioral disturbance, psychotic disturbance, mood disturbance, and anxiety; M47.896 Other spondylosis, lumbar region; L89.620 Pressure ulcer of left heel, unstageable; L89.610 Pressure ulcer of right heel, unstageable; M75.101 Unspecified rotator cuff tear or rupture of right shoulder, not specified as traumatic; M46.46 Discitis, unspecified, lumbar region; I11.0 Hypertensive heart disease with heart failure; K52.89 Other specified noninfective gastroenteritis and colitis; Z79.01 Long term (current) use of anticoagulants; M15.9 Polyosteoarthritis, unspecified; K59.00 Constipation, unspecified; Z66 Do not resuscitate; N30.90 Cystitis, unspecified without hematuria; R79.89 Other specified abnormal findings of blood chemistry; Z79.82 Long term (current) use of aspirin; Z79.890 Hormone replacement therapy; R73.03 Prediabetes; F32.A Depression, unspecified; Z85.42 Personal history of malignant neoplasm of other parts of uterus; Z87.440 Personal history of urinary (tract) infections; Z90.710 Acquired absence of both cervix and uterus; Z96.641 Presence of right artificial hip joint; Z90.49 Acquired absence of other specified parts of digestive tract; Z87.19 Personal history of other diseases of the digestive system; Z88.8 Allergy status to other drugs, medicaments and biological substances
CPT/HCPCS: 94760